=== PATIENT | female | born 1985 | race Caucasian/White ===

== ENCOUNTER 2019-11-05 12:35 | Inpatient (IN) | payer SELFPAY | END 2019-11-11 13:47 | disposition home or self-care (01) | DRG 897 | PROVIDERS: Emergency Provider Emergency Medicine; Family Provider Family Medicine | DX: F15.259 Other stimulant dependence with stimulant-induced psychotic disorder, unspecified (principal); Z28.21 Immunization not carried out because of patient refusal ==

== ENCOUNTER 2020-08-19 13:48 | Emergency (ER) | payer MEDICAID, SELFPAY ==
[2020-08-19 14:02] VITALS: BP 119/80; PULSE 115; RESP 18; TEMP 36.8; O2SAT 97; BMI 23.0
--- NOTE | 2020-08-19 14:16 | ED_ITS ---
HPI - URI/Sore Throat General: Chief Complaint: Upper Respiratory Infection Stated Complaint: Flu like symptoms Time Seen by Provider: 08/19/20 13:57 History of Present Illness: HPI Narrative: 34-year-old female patient presents to the emergency department with onset of cough and congestion x2 to 3 days. Recent methamphetamine use per patient. She reports not feeling well. She denies wheezing, she denies shortness of breath or chest pain. She denies exp osure to the COVID-19. 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 She denies homicidal suicidal ideation plans or thoughts, she denies visual or auditory hallucinations. She denies depression, she denies anxiety. MD elicited complaint: cough, rhinorrhea and nasal congestion Onset (ago): day(s) (2-3) Consistency: intermittent Description of mucous: watery Able to tolerate fluids by mouth: Yes Exacerbating factors: nothing Relieving factors: other (Has not attempted [id number] products to help with symptomology) Associated symptoms: Reports cough, nasal congestion and rhinorrhea; Deny abdominal pain, chills, chest pain, epistaxis, fever(s), headache(s), nausea, sinus pain or vomiting Treatments prior to arrival: none Review of Systems General: Reports: 10 or more systems reviewed and unremarkable except in HPI and below Const: Reports: body aches and malaise; Denies: fever(s), chills or diaphoresis Eyes: Denies: change in vision, blurry vision or eye redness ENMT: Reports: nasal discharge, nasal congestion and post nasal drip; Denies: odynophagia, epistaxis or sinus pain Card: Denies: chest pain, palpitations, irregular heart rhythm, lightheadedness or orthopnea Resp: Reports: productive cough (Clear); Denies: dyspnea, non-productive cough or wheezing GI: Denies: abdominal pain, nausea, vomiting or pain on defecation : Denies: difficulty voiding, dysuria or pelvic pain Musc: Denies: neck pain, back pain, muscle cramps or muscle weakness Skin/Breast: Denies: rash or pruritus Neuro: Denies: headache(s), weakness in extremities or behavioral changes Psych: Denies: anxiety, depression, mood swings, panic attacks, change in appetite, visual hallucinations, auditory hallucinations, suicidal ideation or homicidal ideation Grady/Lymph: Denies: easy bruising PFSH ED PFSH: Social History Current gender identity: Female Physical Exam Const: COMMON NORMALS: no acute distress, patient oriented x3, healthy appearing and alert GENERAL APPEARANCE: cooperative, comfortable and well hydrated HENMT: COMMON NORMALS: normocephalic, atraumatic, EAC's normal, TM's normal bilaterally, Normal external nose present and moist oral mucous membranes HEAD & SCALP: normocephalic and atraumatic FACE & SINUS: normal facial exam, sinuses nontender and face symmetric NOSE: Normal external nose present EXTERNAL AUDITORY CANAL: EAC's normal TYMPANIC MEMBRANE: TM's normal bilaterally MOUTH: Normal oral and palatal mucosa present THROAT: posterior oropharynx normal Eye: COMMON NORMALS: Equal, round and reactive pupils present and EOMs intact bilaterally GENERAL EYE: appearance normal, both eyes and all related structures PUPIL: Yes Equal, round and reactive pupils present Neck/C-Spine: COMMON NORMALS: full ROM and no lymphadenopathy GENERAL: Yes normal visual inspection and Yes trachea midline CERVICAL SPINE: Yes cervical ROM normal and Yes normal cervical lordosis Lymph: LYMPHATIC: no lymphadenopathy noted Chest: COMMONS NORMALS: normal inspection of the chest and normal palpation of entire chest wall Resp: COMMON NORMALS: normal respiratory effort, No use of accessory muscles and clear to auscultation bilaterally EFFORT & INSPECTION: Yes able to speak in complete sentences AUSCULTATION: clear to auscultation bilaterally Cardio: COMMON NORMALS: regular rhythm, S1 normal heart sound present, S2 normal heart sound present and Peripheral pulses 2+ throughout RHYTHM: regular rhythm HEART SOUNDS: S1 normal heart sound present and S2 normal heart sound present PERIPHERAL PULSES: Peripheral pulses 2+ throughout GI: COMMON NORMALS: Normal to inspection, nondistended, normoactive bowel sounds present, Soft to palpation and non-tender INSPECTION: Yes normal to inspection PALPATION: Yes Soft to palpation : COMMON NORMALS: Yes no CVA tenderness BLADDER/KIDNEY EXAM: Yes no CVA tenderness Back/Pelvis: COMMON NORMALS: no CVA tenderness and thoracic and lumbar spine normal to inspection Extremity: COMMON NORMALS: normal to inspection and capillary refill normal Neuro: COMMON NORMALS: patient oriented x3 and no focal motor deficits SENSORIUM/ORIENTATION: Yes alert Psych: COMMON NORMALS: mental status grossly normal, Normal thought process present, cooperative, speech normal, denies hallucinations, denies homicidal ideation and denies suicidal ideation ACTIVITY/MOTOR BEHAVIOR: Yes appropriate eye contact SPEECH: Yes normal speech THOUGHT PROCESS: Normal thought process present THOUGHT CONTENT: Yes Normal thought content present ATTENTION/CONCENTRATION: Yes attention grossly intact MEMORY/COGNITION: Yes memory grossly intact INSIGHT: Good insight present (Psych) JUDGEMENT: Good judgement present (Psych) OTHER: Appears under the influence of meth, constant movement of extremities Skin: COMMON NORMALS: no rashes or lesions noted and turgor normal GENERAL SKIN EXAM: no rashes or lesions noted and turgor normal Course ED course: 34-year-old female patient presented to the emergency department with complaints of cough congestion/flulike symptoms. Offered to swab for influenza and COVID, patient declined at time of swabbing. She came to emergency department with her bags, personal belongings at her side. She reported was homeless, had requested admission to stress unit, she denied suicidal/homicidal ideation thoughts or plans, she denied visual or auditory hallucinations. Dr Titus was consulted, case discussed, advised patient did not meet criteria for inpatient admission, advised patient to follow-up as an outpatient. This was discussed with patient[facility] case management was consulted and did assist with discharge planning with the patient. Patient was advised will need to follow-up with behavioral health outpatient services for initial screening. She verbalized understanding. Consultations: Consultation #1: Dr Titus -discussed with Dr. Titus patient's request to be admitted to the stress unit, advised patient does not admit to suicidal/homicidal ideations plans or thoughts, she is not exhibiting auditory or visual hallucination. He reports may follow-up as an outpatient. Refers patient to discharge planning. Discharge planning has been consulted to find patient a room as she has all her belongings with her and is currently homeless. A bed was found available at the [facility]. Discharge planning currently working to assist patient with placement. Time: 14:25 Vital Signs: Vital signs: Vital Signs Temperature 98.3 F 08/19/20 14:02 Pulse Rate 115 H 08/19/20 14:02 Respiratory Rate 18 08/19/20 14:02 Blood Pressure 119/80 08/19/20 14:02 Pulse Oximetry 97 08/19/20 14:02 Discharge Plan Discharge Patient Disposition: Home Clinical Impression: Upper respiratory infection, Substance abuse or dependence, Suspected 2019-nCoV infection Condition: Stable Prescriptions: No Action paroxetine HCl 20 mg tablet 20 mg PO DAILY RF: 0 Discharge Orders: Discharge Order (Routine); Ordered 08/19/20 Ordered By: Jackie Bray Referrals: Reuben Mccain DO [Primary Care Provider] - Discharge Diet: Advance as tolerated Discharge Activity: Resume usual activity Patient Instructions: Methamphetamine Abuse, Viral Syndrome - Adult Activity Restrictions/Additional Instructions: You will need to return to the emergency department if you develop worsening shortness of breath, cough or nausea vomiting, high fever, inability to catch your breath. It is highly recommended that you contact behavioral health for outpatient counseling/appointment. You will need to go to behavioral health and fill out paperwork for initial assessment. Hours of operation is Monday through Monday 8-4 30 Return to the emergency department if you develop homicidal/suicidal ideation plans or thoughts or auditory/visual hallucinations. The [facility] has accepted you to stay. Is advised that you quarantine in your room for 10 days. 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
--- NOTE | 2020-08-19 14:27 | DCPLANNER ---
manager generation was asked to check to see if there was a bed available [facility]. manager generation called the center, was told that the facility did have one female bed. manager generation informed ED physician that the jail did [facility] bed, and that patient would need to go to the [employer] Department to get a Want and Warrants check and if that came back clean then patient can go the jail for that bed. manager generation spoke with patient and informed patient that patient would need to go and get a Wants and Warrants check and then go to the [facility].
== END 2020-08-19 15:34 | disposition home or self-care (01) ==
PROVIDERS: Emergency Provider Nurse Practitioner Family; PCP Family Medicine
DX: J06.9 Acute upper respiratory infection, unspecified (principal); F19.20 Other psychoactive substance dependence, uncomplicated; Z59.0 Homelessness
CPT/HCPCS: 12345; 99281

== ENCOUNTER 2020-10-31 12:38 | Emergency (ER) | payer MEDICAID, SELFPAY ==
[2020-10-31 12:42] VITALS: BP 151/89; PULSE 110; RESP 16; TEMP 36.2; O2SAT 100; BMI 22.1
[2020-10-31 12:51] VITALS: BP 134/95; PULSE 95; RESP 18; O2SAT 98
--- NOTE | 2020-10-31 13:29 | PC.NURSE ---
Pt is continuously coming in and out of the room, despite being told multiple times to stay in her room. Security has advised pt to remain in her room. Pt refusing medications, blood draw and urine sample after previously agreeing to and requesting these things. Dr Albright notified and at bedside.
--- NOTE | 2020-10-31 13:33 | ED_ITS ---
HPI - Psych General: Chief Complaint: Psychiatric Symptoms Stated Complaint: DIZZY Time Seen by Provider: 10/31/20 12:52 Source: patient Mode of arrival: ambulatory Limitations: no limitations History of Present Illness: HPI Narrative: Patient presents to the emergency department with nonspecific concerns. She claims she feels she is about to have a seizure. She states she has a very remote history of seizures but is not on any antiseizure medications. She is unable to tell me what her symptoms are but states she just does not feel well. She admits to using methamphetamine 2 days ago and said she drank some alcoholic beverage yesterday following which her symptoms started. She denies any chest pain, nausea, dizziness. She denies any fever or urinary symptoms. She denies any headache. When she first arrived she was asking for gabapentin. She was hostile to the nurses but thankfully was cooperative with me. She denies suicidal or homicidal ideation. Review of Systems General: Reports: 10 or more systems reviewed and unremarkable except in HPI and below Const: Denies: fever(s), chills or body aches Eyes: Denies: change in vision or blurry vision ENMT: Denies: throat pain, enlarged tonsils, odynophagia, hoarseness, mouth pain or swelling of lips/tongue Card: Denies: palpitations, irregular heart rhythm, edema or swelling of feet/ankles Resp: Denies: dyspnea, productive cough or non-productive cough GI: Denies: abdominal pain, nausea or vomiting : Denies: flank pain, difficulty voiding, dysuria, urinary frequency, urinary urgency or urinary hesitancy Musc: Denies: neck pain, back pain or extremity swelling Skin/Breast: Denies: rash, pruritus or erythema Neuro: Denies: headache(s), numbness in extremities or weakness in extremities Endo: Denies: polyuria, polydipsia or tired all the time [facility] ED PFSH: Social History (Reviewed 10/31/20 @ 13:49 by Arlette Albright [place], [facility] [place] Current gender identity: Female Physical Exam Const: COMMON NORMALS: no acute distress, average body habitus, patient oriented x3, no limitations, healthy appearing, alert and well nourished HENMT: COMMON NORMALS: normocephalic, atraumatic and moist oral mucous membranes HEAD & SCALP: normocephalic and atraumatic Neck/C-Spine: COMMON NORMALS: no meningeal signs and no JVD Resp: COMMON NORMALS: normal respiratory effort, No retractions, No use of accessory muscles, clear to auscultation bilaterally and percussion normal AUSCULTATION: clear to auscultation bilaterally PERCUSSION: percussion normal Cardio: COMMON NORMALS: no JVD, regular rate, regular rhythm, S1 normal heart sound present, S2 normal heart sound present, No gallops present (Cardio), No clicks present (Cardio), No murmurs present (Cardio), No rub (Cardio) and Peripheral pulses 2+ throughout RATE: regular rate RHYTHM: regular rhythm HEART SOUNDS: S1 normal heart sound present and S2 normal heart sound present PERIPHERAL PULSES: Peripheral pulses 2+ throughout GI: COMMON NORMALS: Normal to inspection, nondistended, normoactive bowel sounds present, Soft to palpation, non-tender, No hepatosplenomegaly present, no masses and no bruits PALPATION: Yes Soft to palpation and Yes No hepatosplenomegaly present Extremity: COMMON NORMALS: normal to inspection, full ROM, capillary refill normal, no calf tenderness and no pedal edema Neuro: COMMON NORMALS: patient oriented x3 SENSORIUM/ORIENTATION: Yes alert MENINGEAL SIGNS: Yes no meningeal signs Skin: COMMON NORMALS: no rashes or lesions noted, no wounds, turgor normal, no jaundice, no petechiae and no mottling GENERAL SKIN EXAM: no rashes or lesions noted and turgor normal MDM - Psych MDM Narrative: Medical decision making narrative: Patient with nonspecific complaint but one that was uncooperative and did not know us assist with anything. Evaluation was unremarkable and she eloped after a conversation that I had with her. I was going to discharge her anyway as she had aspirin aspirin before she was discharged. Medical Records: Attestation: I reviewed the patient's medical records. Discharge Plan Discharge Patient Disposition: Home Clinical Impression: Worried well Condition: Stable Prescriptions: No Action No Known Home Medications RF: 0 Discharge Orders: Discharge ED (Routine); Ordered 10/31/20 Ordered By: Arlette Albright Referrals: Reuben Mccain DO [Primary Care Provider] - 1-3 days Discharge Diet: Usual diet Discharge Activity: Resume usual activity Activity Restrictions/Additional Instructions: Return for any new or worsening symptoms. Follow-up with your primary care provider as needed. 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
--- NOTE | 2020-10-31 13:48 | PC.NURSE ---
Dr Harden assessed pt , ordered Gabapentin, took med to pt. let her read the packet, opened med in front of pt. Then she refused to take the med. Anxious , pacing, kept coming out of the room. Encouraged to stay in room. Pt saw her blood pressure, states she needed an ASA. Dr Harden in room visiting with pt. ASA was ordered. Then pt left the ER. No meds were given and no blood drawn or UA. Notified Dr Harden and Charge nurse.
== END 2020-10-31 13:54 | disposition home or self-care (01) ==
PROVIDERS: Emergency Provider Family Medicine; PCP Family Medicine
DX: Z71.1 Person with feared health complaint in whom no diagnosis is made (principal)
CPT/HCPCS: 12345; 99284

== ENCOUNTER 2020-11-10 23:17 | Inpatient (IN) | payer MEDICAID, SELFPAY ==
[2020-11-10 23:27] VITALS: BP 133/92; PULSE 99; RESP 18; TEMP 36.7; O2SAT 97; BMI 23.0
--- NOTE | 2020-11-11 00:07 | ED_ITS ---
HPI - General Adult General: Chief complaint: General Medical Stated complaint: STRESSED Time Seen by Provider: 11/10/20 23:55 Source: patient and EMS Mode of arrival: EMS Limitations: no limitations History of Present Illness: HPI narrative: 35-year-old female states she been under a lot of stress lately and had increased anxiety. She denies any suicidal or homicidal ideations but states she does not know what to do and is having severe depression. She states she voluntarily wants to be admitted to the psych unit. Denies any worsening improving factors. She is not on any meds currently. Associated symptoms: Deny chest pain, dyspnea, headache(s), nausea, rash or vomiting Review of Systems Const: Denies: fever(s), chills, body aches or change in appetite Eyes: Denies: blurry vision or eye discomfort ENMT: Denies: throat pain or dental pain Card: Denies: chest pain Resp: Denies: dyspnea GI: Denies: abdominal pain, nausea, vomiting or diarrhea : Denies: dysuria Musc: Denies: neck pain or back pain Skin/Breast: Denies: rash Neuro: Denies: headache(s) Psych: Reports: anxiety Grady/Lymph: Denies: easy bruising All/Imm: Denies: urticaria PFSH ED PFSH: Social History Current gender identity: Female Female Reproductive History: Date of last menstrual period: 10/06/20 Physical Exam Const: COMMON NORMALS: no acute distress, patient oriented x3 and healthy appearing HENMT: COMMON NORMALS: normocephalic and atraumatic HEAD & SCALP: normocephalic and atraumatic Eye: COMMON NORMALS: Equal, round and reactive pupils present and EOMs intact bilaterally PUPIL: Yes Equal, round and reactive pupils present Neck/C-Spine: COMMON NORMALS: full ROM and supple Chest: COMMONS NORMALS: normal inspection of the chest and normal palpation of entire chest wall Resp: COMMON NORMALS: normal respiratory effort, No retractions, No use of accessory muscles and clear to auscultation bilaterally AUSCULTATION: clear to auscultation bilaterally Cardio: COMMON NORMALS: regular rate, regular rhythm and No murmurs present (Cardio) RATE: regular rate RHYTHM: regular rhythm GI: COMMON NORMALS: Normal to inspection, nondistended, normoactive bowel sounds present, Soft to palpation, non-tender and no masses PALPATION: Yes Soft to palpation Extremity: COMMON NORMALS: normal to inspection and full ROM Neuro: COMMON NORMALS: patient oriented x3, moves all extremities and no focal motor deficits Psych: COMMON NORMALS: mental status grossly normal, Normal thought process present and cooperative THOUGHT PROCESS: Normal thought process present Skin: COMMON NORMALS: no rashes or lesions noted and no wounds GENERAL SKIN EXAM: no rashes or lesions noted Course Vital Signs: Vital signs: Vital Signs Temperature 98.0 F 11/10/20 23:27 Pulse Rate 98 11/11/20 01:09 Respiratory Rate 18 11/10/20 23:27 Blood Pressure 128/90 11/11/20 01:09 Pulse Oximetry 98 11/11/20 01:09 MDM - General Adult MDM Narrative: Medical decision making narrative: Patient presents here with depression and voluntarily wants to be admitted to the psychiatric unit. Patient is medically cleared I spoke to psychiatrist and will admit to the MPU she has been stable while here. Lab Data: Labs: Lab Results 11/11/20 11/11/20 11/11/20 Range/Units 00:40 01:00 01:00 WBC 11.9 H (4.0-10.0) 10^3/ uL RBC 4.61 (4.1-5.3) 10^6/u L Hgb 13.7 (11.5-15.3) g/dL Hct 41.3 (37.0-47.0) % MCV 89.6 (81-99) fL MCH 29.7 (28.0-34.0) pg MCHC 33.2 (30.0-36.0) g/dL RDW 12.7 (12.1-15.1) % Plt Count 422 H (130-400) 10^3/c mm MPV 9.8 (7.4-10.4) fL Neut % (Auto) 59.9 % Lymph % (Auto) 26.5 % Schuyler % (Auto) 8.3 % Eos % (Auto) 4.5 % Baso % (Auto) 0.6 % Neut # (Auto) 7.13 (1.8-7.7) 10^3/u L Lymph # (Auto) 3.1 (0.8-4.8) 10^3/u L Schuyler # (Auto) 1.0 H (0.2-0.9) 10^3/u L Eos # (Auto) 0.5 (0.0-0.8) 10^3/u L Baso # (Auto) 0.1 (0.0-0.1) 10^3/u L Nucleated RBC % (a uto) 0 % Nucleated RBCs # 0.0 /100WBC Sodium 140 (136-145) mmol/L Potassium 3.8 (3.5-5.1) mmol/L Chloride 105 (98-107) mmol/L Carbon Dioxide 25 (22-29) mmol/L Anion Gap 13.8 (5-19) BUN 13 (6-20) mg/dL Creatinine 0.7 (0.5-0.9) mg/dL GFR Calculation 95.8 (90-130) mL/min Glucose 121 H (65-115) mg/dL Calculated Osmolal ity 291 (285-295) mOsm/k g Calcium 9.8 (8.5-10.5) mg/dL Total Bilirubin 0.5 (0.15-1.2) mg/dL AST 21 (0-32) U/L ALT 26 (0-33) U/L Alkaline Phosphata se 68 (35-105) IU/L Total Protein 7.3 (6.6-8.7) g/dL Albumin 4.2 (3.5-5.2) g/dL Globulin 3.1 (1.3-4.6) g/dL HCG, Qual Negative (Negative) Salicylates 0.7 L (3-10) mg/dL Acetaminophen < 5.0 L (10-30) ug/mL Ethyl Alcohol < 10 (0-10) mg/dL Discharge Plan Discharge Patient Disposition: Admitted As Inpatient Clinical Impression: Depression Condition: Stable 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
[2020-11-11 00:52] LABS: HCG Qualitative Urine. Negative (Negative)
[2020-11-11 01:09] VITALS: BP 128/90; PULSE 98; O2SAT 98
[2020-11-11 01:19] LABS: Basophils # 0.1 10^3/uL (0.0-0.1); Basophils % 0.6 %; Eosinophils # 0.5 10^3/uL (0.0-0.8); Eosinophils % 4.5 %; Hematocrit 41.3 % (37.0-47.0); Hemoglobin 13.7 g/dL (11.5-15.3); Lymphocytes # 3.1 10^3/uL (0.8-4.8); Lymphocytes % 26.5 %; Mean Corpuscular HGB Conc 33.2 g/dL (30.0-36.0); Mean Corpuscular Hemoglobin 29.7 pg (28.0-34.0); Mean Corpuscular Volume 89.6 fL (81-99); Mean Platelet Volume 9.8 fL (7.4-10.4); Monocytes % 8.3 %; Neutrophils # 7.13 10^3/uL (1.8-7.7); Neutrophils % 59.9 %; Nucleated Red Blood Cells % 0 %; Platelet Count 422 10^3/cmm (130-400); Red Blood Count 4.61 10^6/uL (4.1-5.3); Red Cell Distribution Width 12.7 % (12.1-15.1); White Blood Count 11.9 10^3/uL (4.0-10.0)
[2020-11-11 01:33] LABS: Alanine Aminotransferase 26 U/L (0-33); Albumin Level 4.2 g/dL (3.5-5.2); Alkaline Phosphatase 68 IU/L (35-105); Anion Gap 13.8 (5-19); Aspartate Amino Transferase 21 U/L (0-32); Blood Urea Nitrogen 13 mg/dL (6-20); Calcium 9.8 mg/dL (8.5-10.5); Carbon Dioxide 25 mmol/L (22-29); Chloride 105 mmol/L (98-107); Globulin 3.1 g/dL (1.3-4.6); Glomerular Filtration Rate 95.8 mL/min (90-130); Glucose 121 mg/dL (65-115); Osmolality Calculated 291 mOsm/kg (285-295); Potassium 3.8 mmol/L (3.5-5.1); Salicylate 0.7 mg/dL (3-10); Sodium 140 mmol/L (136-145); Total Bilirubin 0.5 mg/dL (0.15-1.2); Total Protein 7.3 g/dL (6.6-8.7)
[2020-11-11 01:36] LABS: Acetaminophen < 5.0 ug/mL (10-30); Alcohol Level < 10 mg/dL (0-10)
[2020-11-11 01:48] LABS: Amphetamines Screen Urine Positive (Negative); Barbiturates Screen Urine Negative (Negative); Benzodiazepines Screen Urine Negative (Negative); Cocaine Screen Urine Negative (Negative); Opiate Screen Urine Negative (Negative); PCP Screen Urine Negative (Negative); Specific Gravity, Urine 1.005 (1.005-1.030); THC Screen Urine Negative (Negative); Urine Color Yellow (Yellow); pH Urine 6.5 (5-7)
[2020-11-11 01:49] LABS: Add Urine Culture? Yes; Add Urine Microscopic? YES; Bacteria Urine 2+ /hpf; Bilirubin Urine Neg (Negative); Blood Urine Neg (Negative); Glucose Urine UA Norm (Normal); Ketones Urine Negative (Negative); Leukocyte Esterase Urine 2+ (Negative); Mucus Urine 1+ /hpf; Nitrate Urine Negative (Negative); Protein Urine Neg (Negative); Squamous Epithelial Cell Urine 0-4 /hpf (0-5); Urobilinogen Urine Norm (Negative); WBC Urine 15-25 /hpf (0-5)
[2020-11-11 02:17] VITALS: PULSE 111; RESP 18; O2SAT 99
[2020-11-11 02:26] VITALS: PULSE 81; RESP 20; TEMP 36.8
[2020-11-11] MEDS: acetaminophen 325 mg Tablet 650 MG PO ×3 (03:45→12:46)
[2020-11-11] MEDS: blistex lip oint 7 gm Tube 1 APPLIC TOPICAL ×3 (03:46→12:14)
--- NOTE | 2020-11-11 05:09 | PC.NURSE ---
Skin assessment revealed no wounds or injuries.
[2020-11-11 05:55] VITALS: RESP 16
[2020-11-11] MEDS: nicotine 2 mg Gum BUCCAL ×2 (09:16→12:49)
[2020-11-11] MEDS: benzocaine 20% 7 gm 1 APPLIC MUCOUS MEM (10:35)
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
[2020-11-11 14:00] VITALS: BP 119/70; PULSE 76; RESP 18; TEMP 36.1; O2SAT 99
[2020-11-11] MEDS: ARIPiprazole 10 mg Tablet PO (15:21)
[2020-11-11 22:00] VITALS: BP 127/90; PULSE 64; RESP 18; TEMP 37; O2SAT 99
--- NOTE | 2020-11-12 01:22 | PC.NURSE ---
PM assessment On assessment, pt heart/lung sounds are normal, pt denies AH, VH, SI, HI at this time. Pt denies pain. She is resting in her bed and has slept most of the shift. She did get up for a snack and returned to her room. She says, life happened, this is why Im here. I am coming down. Will continue to monitor this pt.
--- NOTE | 2020-11-12 01:44 | PC.NURSE ---
PT request Pt has dried lips, cracked, and white. She has requested Zovarax to treat them. She was offered blistex and she has used it but the lips are still in the same condition. will continue to monitor this patient.
[2020-11-12 05:54] VITALS: BP 108/73; PULSE 82; RESP 16; TEMP 37.1; O2SAT 94
[2020-11-12] MEDS: ARIPiprazole 10 mg Tablet PO (09:35)
--- NOTE | 2020-11-12 12:08 | PM.NPN ---
Subjective NPU Subjective: Interval history: Bernice presents today appearing less confused than the day before and resting/sleeping a lot. She denies any major changes from yesterday and reports that she is feeling a little better now that she has been able to catch up on rest. She denies any side effects from the medication and she is eating okay and sleeping frequently. Mental Status Exam MSE Comments: This is a very slender white female with hospital scrubs on with limited grooming and eye contact. No abnormal movements except psychomotor retardation. Cooperative with exam in no acute distress. Speech was decreased rate and volume. Mood described as okay, affect subdued. Thought process linear and at times organized. Thought content: Patient denied suicidal or homicidal ideation, there were no delusions reported or noted, she denied auditory visual hallucinations. Attention and concentration were limited and memory was unreliable but none were formally tested. She is alert and oriented x3. Insight and judgment are impaired and impulse control is impaired. Vitals/I&O/Wt Last Vital Signs Temp 99.5 F 11/12/20 20:10 Pulse 81 11/12/20 20:10 Resp 17 11/12/20 20:10 BP 104/71 11/12/20 20:10 Pulse Ox 97 11/12/20 20:10 Data NPU : 11/11/20 01:00 11/11/20 01:00 Micro: Microbiology 11/11/20 00:40 Urine Culture - Preliminary Urine,Clean Catch Microbiology 11/11/20 00:40 Urine,Clean Catch Urine Culture - Preliminary A&P Additional A&P Information (1) Depression: (2) Methamphetamine use: (3) Methamphetamine intoxication: (4) Psychosis: This is a 35-year-old white female with a long history of mental health and addiction issues who presents 1 year after her last inpatient hospitalization with active addiction and psychosis likely related to her methamphetamine use with improvement today in her altered mental status and decision-making capacity. 1. Continue current medication. 2. Continue every 15 minute checks for safety. 3. Encourage individual, group and milieu therapy. 4. Encourage sober living treatment after discharge at the highest level of care to which she is willing to commit. Involuntary Hold Information 96 Hour Hold: 96 Hour Involuntary Admission: No Attestations NPU Medical Necessity Statement*: Inpatient hospitalization is medically necessary and the clinically appropriate intervention at this time. We will monitor medications and make changes as indicated. Likely length of stay 2 to 4 days. Coding Level of Care Code Acute Property Disposal Officer for [facility]ar Hicks
[2020-11-12 13:29] VITALS: BP 107/74; PULSE 95; RESP 18; TEMP 36.8; O2SAT 96
[2020-11-12 20:10] VITALS: BP 104/71; PULSE 81; RESP 17; TEMP 37.5; O2SAT 97
[2020-11-13 06:00] VITALS: PULSE 108; RESP 16; TEMP 36.9; O2SAT 90
[2020-11-13] MEDS: ARIPiprazole 10 mg Tablet PO (08:42)
[2020-11-13 13:43] VITALS: BP 110/71; PULSE 84; RESP 18; TEMP 36.3; O2SAT 97
--- NOTE | 2020-11-13 16:44 | P.PN_ITS ---
Subjective NPU Subjective: Interval history: Bernice presents today continuing to show increasing clarity and resolution of her altered mental status. She continues to be somewhat lethargic as she gets through her methamphetamine withdrawal. She endorses overall improvement reports that she is eating fine and sleeping probably too much. Mental Status Exam MSE Comments: This is a very slender white female with hospital scrubs on with limited grooming and eye contact. No abnormal movements except psychomotor retardation. Cooperative with exam in no acute distress. Speech was more normal rate and volume. Mood described as better, affect less subdued. Thought process more organized. Thought content: Patient denied suicidal or homicidal ideation, there were no delusions reported or noted, she denied auditory visual hallucinations. Attention and concentration were limited and memory was unreliable but none were formally tested. She is alert and oriented x3. Insight and judgment are impaired, but improving and impulse control is impaired. Vitals/I&O/Wt Last Vital Signs Temp 98.6 F 11/13/20 20:51 Pulse 84 11/13/20 20:51 Resp 18 11/13/20 20:51 BP 108/76 11/13/20 20:51 Pulse Ox 95 11/13/20 20:51 Data NPU : 11/11/20 01:00 11/11/20 01:00 Micro: Microbiology 11/11/20 00:40 Urine Culture - Final Urine,Clean Catch Microbiology 11/11/20 00:40 Urine,Clean Catch Urine Culture - Final A&P Additional A&P Information (1) Depression: (2) Methamphetamine use: (3) Methamphetamine intoxication: (4) Psychosis: This is a 35-year-old white female with a long history of mental health and addiction issues who presents 1 year after her last inpatient hospitalization with active addiction and psychosis likely related to her methamphetamine use with improvement in her altered mental status and decision-making capacity. 1. Continue current medication. 2. Continue every 15 minute checks for safety. 3. Encourage individual, group and milieu therapy. 4. Encourage sober living treatment after discharge at the highest level of care to which she is willing to commit. Involuntary Hold Information 96 Hour Hold: 96 Hour Involuntary Admission: No Attestations NPU Medical Necessity Statement*: Inpatient hospitalization is medically necessary and the clinically appropriate intervention at this time. We will monitor medications and make changes as indicated. Likely length of stay 2 to 4 days. Coding Level of Care Code Acute Manager Domestic for Chg Fwd
[2020-11-13 20:51] VITALS: BP 108/76; PULSE 84; RESP 18; TEMP 37; O2SAT 95
[2020-11-14 06:00] VITALS: BP 102/66; PULSE 71; RESP 18; TEMP 36.8; O2SAT 94
[2020-11-14] MEDS: ARIPiprazole 10 mg Tablet PO (09:01)
[2020-11-14 14:00] VITALS: BP 123/85; PULSE 101; RESP 20; TEMP 37; O2SAT 95
[2020-11-14] MEDS: nicotine 2 mg Gum BUCCAL (14:43)
--- NOTE | 2020-11-14 15:41 | PM.NPN ---
Subjective NPU Subjective: Interval history: Bernice continues to show slow but steady improvement in her mentation. She continues to endorse diminishing odd thoughts and clear thought processes. She reports she is tolerating the medication well and denies any side effects. She reports she continues to catch up on sleep as she manages her withdrawal symptoms. She reports she is eating fine and sleeping a lot. Mental Status Exam MSE Comments: This is a very slender white female with hospital scrubs on with improving grooming and eye contact. No abnormal movements except psychomotor retardation. Cooperative with exam in no acute distress. Speech was more normal rate and volume. Mood described as better, affect less subdued. Thought process organized. Thought content: Patient denied suicidal or homicidal ideation, there were no delusions reported or noted, she denied auditory visual hallucinations. Attention and concentration were improving and memory was more reliable but none were formally tested. She is alert and oriented x3. Insight and judgment are improving and impulse control is impaired. Vitals/I&O/Wt Last Vital Signs Temp 98.6 F 11/14/20 14:00 Pulse 101 H 11/14/20 14:00 Resp 20 H 11/14/20 14:00 BP 123/85 11/14/20 14:00 Pulse Ox 95 11/14/20 14:00 Weight last 48 hrs Weight 58.967 kg Data NPU : 11/11/20 01:00 11/11/20 01:00 A&P Additional A&P Information (1) Depression: (2) Methamphetamine use: (3) Methamphetamine intoxication: (4) Psychosis: This is a 35-year-old white female with a long history of mental health and addiction issues who presents 1 year after her last inpatient hospitalization with active addiction and psychosis likely related to her methamphetamine use with improvement in her altered mental status and decision-making capacity. 1. Continue current medication. 2. Continue every 15 minute checks for safety. 3. Encourage individual, group and milieu therapy. 4. Encourage sober living treatment after discharge at the highest level of care to which she is willing to commit. Involuntary Hold Information 96 Hour Hold: 96 Hour Involuntary Admission: No Attestations NPU Medical Necessity Statement*: Inpatient hospitalization is medically necessary and the clinically appropriate intervention at this time. We will monitor medications and make changes as indicated. Likely length of stay 2 to 4 days. 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
[2020-11-14 20:06] VITALS: BP 98/65; PULSE 89; RESP 18; TEMP 37.3; O2SAT 97
[2020-11-15 05:58] VITALS: BMI 23.0
[2020-11-15 06:00] VITALS: BP 104/69; PULSE 89; RESP 20; TEMP 36.9; O2SAT 95
[2020-11-15] MEDS: ARIPiprazole 10 mg Tablet PO (08:31)
--- NOTE | 2020-11-15 09:41 | PM.NPN ---
Subjective NPU Subjective: Interval history: Bernice presents today continuing to show slow improvement and open to discussions about ongoing treatment. She reports that she continues to feel a little groggy and does not know of that secondary to the Abilify. Discussed possibly L5 to evening to see if that assists with her low energy. Otherwise we discussed meeting with the treatment team in the morning and seeing what options are available in the community for her ongoing treatment. Mental Status Exam MSE Comments: This is a very slender white female with hospital scrubs on with improving grooming and eye contact. No abnormal movements except psychomotor retardation. Cooperative with exam in no acute distress. Speech was more normal rate and volume. Mood described as groggy, affect subdued. Thought process organized. Thought content: Patient denied suicidal or homicidal ideation, there were no delusions reported or noted, she denied auditory visual hallucinations. Attention and concentration were improving and memory was more reliable but none were formally tested. She is alert and oriented x3. Insight and judgment are improving and impulse control is impaired. Vitals/I&O/Wt Last Vital Signs Temp 98.4 F 11/15/20 06:00 Pulse 89 11/15/20 06:00 Resp 20 H 11/15/20 06:00 BP 104/69 11/15/20 06:00 Pulse Ox 95 11/15/20 06:00 Weight last 48 hrs Weight 58.967 kg Data NPU : 11/11/20 01:00 11/11/20 01:00 A&P Additional A&P Information (1) Depression: (2) Methamphetamine use: (3) Methamphetamine intoxication: (4) Psychosis: This is a 35-year-old white female with a long history of mental health and addiction issues who presents 1 year after her last inpatient hospitalization with active addiction and psychosis likely related to her methamphetamine use with improvement in her altered mental status and decision-making capacity. 1. Continue current medication. Move Abilify to nightly and see if she continues to have daytime somnolence. 2. Continue every 15 minute checks for safety. 3. Encourage individual, group and milieu therapy. 4. Encourage sober living treatment after discharge at the highest level of care to which she is willing to commit. Involuntary Hold Information 96 Hour Hold: 96 Hour Involuntary Admission: No Attestations NPU Medical Necessity Statement*: Inpatient hospitalization is medically necessary and the clinically appropriate intervention at this time. We will monitor medications and make changes as indicated. Likely length of stay 1-3 days. 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
[2020-11-15 14:00] VITALS: BP 138/89; PULSE 94; RESP 18; TEMP 36.8
--- NOTE | 2020-11-15 20:11 | PC.NURSE ---
RESTING IN BED, DENIES WANTING TO HARM SELF
[2020-11-15] MEDS: nicotine 2 mg Gum BUCCAL (20:48)
[2020-11-15] MEDS: trazodone 50 mg Tablet PO (20:48)
[2020-11-15] MEDS: hyDROXYzine 25 mg Capsule 50 MG PO (20:48)
[2020-11-15 21:27] VITALS: PULSE 79; RESP 17; TEMP 36.8; O2SAT 96
[2020-11-16 06:00] VITALS: BP 80/52; PULSE 73; RESP 19; TEMP 37; O2SAT 95
[2020-11-16] MEDS: ARIPiprazole 10 mg Tablet PO (08:18)
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
[2020-11-16] MEDS: nicotine 2 mg Gum BUCCAL (13:09)
== END 2020-11-16 13:51 | disposition home or self-care (01) | DRG 885 ==
LOC: ER 11-11 01:46 → NP 11-11 09:24
PROVIDERS: Admitting Provider Psychiatry & Neurology Psychiatry; Emergency Provider Emergency Medicine; PCP Family Medicine; Visit Provider Psychiatry & Neurology Psychiatry
DX: F29 Unspecified psychosis not due to a substance or known physiological condition (principal); F32.9 Major depressive disorder, single episode, unspecified; F17.210 Nicotine dependence, cigarettes, uncomplicated; F15.129 Other stimulant abuse with intoxication, unspecified; F41.1 Generalized anxiety disorder; Z81.8 Family history of other mental and behavioral disorders
CPT/HCPCS: 12345; 80053; 80306; 80307; 81001; 81025; 85025; 87086; 99282; 99291

== ENCOUNTER 2020-11-23 13:46 | Inpatient (IN) | payer BC, MEDICAID, SELFPAY ==
[2020-11-23] VITALS (8 sets, daily range): BP systolic 78–131; BP diastolic 51–94; PULSE 87–123; RESP 14–18; TEMP 37.1; O2SAT 94–98; BMI 22.1
[2020-11-23] MEDS: LORazepam 2 mg/mL INJ 1 mL IM (14:03)
[2020-11-23] MEDS: ziprasidone 20 mg/mL SDV IM (14:05)
[2020-11-23 14:42] LABS: Add Urine Microscopic? YES; Bilirubin Urine Neg (Negative); Blood Urine Trace (Negative); Glucose Urine UA Norm (Normal); HCG Qualitative Urine. Negative (Negative); Ketones Urine Negative (Negative); Leukocyte Esterase Urine Negative (Negative); Nitrate Urine Negative (Negative); Protein Urine Trace (Negative); Urine Appearance Clear (CLEAR); Urine Color Yellow (Yellow); Urobilinogen Urine Norm (Negative); pH Urine 5 (5-7)
[2020-11-23 14:44] LABS: Basophils # 0.1 10^3/uL (0.0-0.1); Basophils % 0.7 %; Eosinophils # 0.2 10^3/uL (0.0-0.8); Eosinophils % 1.7 %; Hematocrit 42.2 % (37.0-47.0); Hemoglobin 14.2 g/dL (11.5-15.3); Lymphocytes % 15.5 %; Mean Corpuscular HGB Conc 33.6 g/dL (30.0-36.0); Mean Corpuscular Hemoglobin 30.1 pg (28.0-34.0); Mean Corpuscular Volume 89.6 fL (81-99); Mean Platelet Volume 9.4 fL (7.4-10.4); Monocytes # 0.6 10^3/uL (0.2-0.9); Monocytes % 4.8 %; Neutrophils # 9.82 10^3/uL (1.8-7.7); Nucleated Red Blood Cells % 0 %; Platelet Count 490 10^3/cmm (130-400); Red Blood Count 4.71 10^6/uL (4.1-5.3); Red Cell Distribution Width 12.4 % (12.1-15.1); White Blood Count 12.8 10^3/uL (4.0-10.0)
[2020-11-23 14:47] LABS: Add Urine Culture? No; Bacteria Urine 1+ /hpf; Hyaline Casts Urine 0-4 /lpf; Mucus Urine 3+ /hpf; Squamous Epithelial Cell Urine 0-4 /hpf (0-5)
[2020-11-23 14:49] LABS: Amphetamines Screen Urine Positive (Negative); Barbiturates Screen Urine Negative (Negative); Benzodiazepines Screen Urine Negative (Negative); Cocaine Screen Urine Negative (Negative); PCP Screen Urine Negative (Negative); THC Screen Urine Negative (Negative)
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
[2020-11-23 15:01] LABS: Opiate Screen Urine Negative (Negative)
[2020-11-23 15:11] LABS: Alanine Aminotransferase 11 U/L (0-33); Albumin Level 3.9 g/dL (3.5-5.2); Alkaline Phosphatase 64 IU/L (35-105); Anion Gap 14.2 (5-19); Aspartate Amino Transferase 14 U/L (0-32); Blood Urea Nitrogen 7 mg/dL (6-20); Carbon Dioxide 22 mmol/L (22-29); Chloride 104 mmol/L (98-107); Globulin 3.2 g/dL (1.3-4.6); Glomerular Filtration Rate 71.7 mL/min (90-130); Glucose 144 mg/dL (65-115); Osmolality Calculated 285 mOsm/kg (285-295); Potassium 3.2 mmol/L (3.5-5.1); Salicylate 0.9 mg/dL (3-10); Sodium 137 mmol/L (136-145); Total Bilirubin 0.4 mg/dL (0.15-1.2); Total Protein 7.1 g/dL (6.6-8.7)
[2020-11-23 15:17] LABS: Acetaminophen < 5.0 ug/mL (10-30); Alcohol Level < 10 mg/dL (0-10)
[2020-11-23] MEDS: hyDROXYzine 25 mg Capsule 50 MG PO (20:23)
[2020-11-23] MEDS: trazodone 50 mg Tablet PO (20:23)
--- NOTE | 2020-11-23 23:12 | PC.NURSE ---
PM assessment Pt blood pressure is soft while resting at 75/51. Pt got up for snack but returned to bed. Heart/Lung sounds are normal at this time. Pt requested to be left alone.
[2020-11-24 06:00] VITALS: BP 96/44; PULSE 65; RESP 18; TEMP 36.7; O2SAT 96
[2020-11-24 13:42] VITALS: BP 95/60; PULSE 73; RESP 18; TEMP 37.3; O2SAT 97
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
[2020-11-24] MEDS: trazodone 50 mg Tablet PO (19:33)
[2020-11-24] MEDS: hyDROXYzine 25 mg Capsule 50 MG PO (19:33)
[2020-11-24 19:38] VITALS: BP 101/66; PULSE 82; RESP 17; TEMP 36.8; O2SAT 96
[2020-11-25 06:00] VITALS: BP 85/52; PULSE 72; RESP 16; TEMP 36.7; O2SAT 96
[2020-11-25 14:00] VITALS: BP 105/67; PULSE 86; RESP 20; TEMP 36.8; O2SAT 97
--- NOTE | 2020-11-25 14:11 | PM.NPN ---
Subjective NPU Subjective: Interval history: Bernice presented today reporting that she is feeling a little better day by day. She really could not give any indication of why she was struggling since she left [facility] indicated she may have possibly not picked up her Abilify when she left. We discussed the importance of her continuing the medication after discharge to get a different outcome. She continues to deny an interest in more intensive outpatient sober living treatment we discussed the possibility of discharge next 48 hours. Mental Status Exam MSE Comments: This is a very slender white female with hospital scrubs on with limited grooming and adequate eye contact. No abnormal movements except psychomotor retardation. Cooperative with exam in no acute distress. Speech was decreased volume and rate. Mood described as a little better, affect congruent. Thought process linear and at times organized. Thought content: Patient endorsed improvement in her suicidal and continue to deny homicidal ideation, there were no delusions reported or noted, she denied auditory visual hallucinations. Attention and concentration were impaired and memory was unreliable but none were formally tested. She is alert and oriented x3. Insight and judgment are impaired and impulse control is impaired. Vitals/I&O/Wt Last Vital Signs Temp 98.1 F 11/25/20 19:43 Pulse 75 11/25/20 19:43 Resp 16 11/25/20 19:43 BP 78/52 11/25/20 19:43 Pulse Ox 96 11/25/20 19:43 11/25/20 11/25/20 11/25/20 06:59 14:59 22:59 Intake Total 480 / 480 240 / 720 Balance 480 / 480 240 / 720 Weight last 48 hrs Weight 56.699 kg Data NPU : 11/23/20 14:38 11/23/20 14:38 A&P Additional A&P Information (1) Drug-induced psychotic disorder: (2) Psychosis: (3) Methamphetamine use: (4) Depression: This is a 35-year-old white female with a long history of mental health and addiction issues who presents days after her last inpatient hospitalization with active addiction and psychosis related to her methamphetamine use with improvement in her altered mental status and decision-making capacity since her last inpatient stay. 1. Continue current medication. 2. Continue every 15 minute checks for safety. 3. Encourage individual, group and milieu therapy. 4. Encourage sober living treatment after discharge at the highest level of care to which she is willing to commit. Involuntary Hold Information 96 Hour Hold: 96 Hour Involuntary Admission: Yes 96 Hour Hold Ending Date: 11/27/20 96 Hour Hold Ending Time: 14:00 Attestations NPU Medical Necessity Statement*: Inpatient hospitalization is medically necessary and the clinically appropriate intervention at this time. We will monitor medications and make changes as indicated. Likely length of stay 2-4 days. Coding Level of Care Code Acute Wrecker Operator for Bandar Hicks
[2020-11-25 19:43] VITALS: BP 78/52; PULSE 75; RESP 16; TEMP 36.7; O2SAT 96
[2020-11-25] MEDS: hyDROXYzine 25 mg Capsule 50 MG PO (20:49)
[2020-11-25] MEDS: trazodone 50 mg Tablet PO (20:49)
[2020-11-25 21:33] VITALS: BP 97/62
--- NOTE | 2020-11-26 00:56 | PC.NURSE ---
PM assessment Heart/Lung Sounds are normal. pt bp is a little soft while sleeping 78/52 and when up it is 97/62. Pt denies pain, Denies si/hi, denies ah/vh. pt has slept since 190 only getting up for snack and to the bathroom. Will continue to monitor pt
[2020-11-26 05:58] VITALS: BP 94/63; PULSE 80; RESP 18; TEMP 36.9; O2SAT 97
[2020-11-26 14:00] VITALS: BP 111/70; PULSE 92; RESP 20; TEMP 36.8; O2SAT 97
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
[2020-11-26 15:12] VITALS: BP 111/70; PULSE 92; RESP 20; TEMP 36.8; O2SAT 97
== END 2020-11-26 15:27 | disposition home or self-care (01) | DRG 897 ==
LOC: ER 15:48 → NP 17:12
PROVIDERS: Admitting Provider Psychiatry & Neurology Psychiatry; Emergency Provider Family Medicine; PCP Family Medicine; Visit Provider Psychiatry & Neurology Psychiatry
DX: F15.950 Other stimulant use, unspecified with stimulant-induced psychotic disorder with delusions (principal); F32.9 Major depressive disorder, single episode, unspecified; Z81.8 Family history of other mental and behavioral disorders
CPT/HCPCS: 12345; 80053; 80306; 80307; 81001; 81025; 85025; 96372; 99284; J2060; J3486

== ENCOUNTER 2021-02-05 10:57 | Inpatient (IN) | payer BC, SELFPAY ==
[2021-02-05] VITALS (15 sets, daily range): BP systolic 91–166; BP diastolic 65–103; PULSE 78–128; RESP 16–24; TEMP 36.8; O2SAT 96–100; BMI 23.9
--- NOTE | 2021-02-05 11:30 | W.ED.PSYCH ---
HPI - Psych General: Chief Complaint: Psychiatric Symptoms Stated Complaint: MHE Time Seen by Provider: 02/05/21 11:07 Source: police Mode of arrival: other (police) Limitations: altered mental status History of Present Illness: HPI Narrative: This 35-year-old female patient with a history of methamphetamine use was brought to the emergency department by police officers. She was apparently at the court house where her mother was trying to get a 96-hour psychiatric hold of this patient and while she was there the patient's started exhibiting unusual behavior according to the police officers. She was loud, not cooperating, saying people were trying to kill her, saying everybody in the court house was trying to kill her. The electrical engineering designer therefore ordered them to bring her to the emergency department for psychiatric evaluation and the electrical engineering designer is working on a 96-hour court-ordered hold. Review of Systems General: Reports: ROS unobtainable due to mental status [facility] ED PFSH: Social History (Reviewed 02/05/21 @ 11:39 by Arlette Albright [place] [facility] [place] Current gender identity: Female Female Reproductive History: Date of last menstrual period: 10/06/20 Physical Exam Const: COMMON NORMALS: no acute distress, average body habitus, healthy appearing, alert and well nourished EXAM LIMITATIONS: behavioral limitations HENMT: COMMON NORMALS: normocephalic and atraumatic HEAD & SCALP: normocephalic and atraumatic MOUTH: moist mucous membranes abnormal (dry) Eye: COMMON NORMALS: Equal, round and reactive pupils present, EOMs intact bilaterally, conjunctivae normal and no scleral icterus CONJUNCTIVA: Yes conjunctivae normal PUPIL: Yes Equal, round and reactive pupils present Neck/C-Spine: COMMON NORMALS: no meningeal signs and no JVD Resp: COMMON NORMALS: normal respiratory effort, No retractions, No use of accessory muscles, clear to auscultation bilaterally and percussion normal AUSCULTATION: clear to auscultation bilaterally PERCUSSION: percussion normal Cardio: COMMON NORMALS: no JVD, regular rhythm, S1 normal heart sound present, S2 normal heart sound present, No gallops present (Cardio), No clicks present (Cardio), No murmurs present (Cardio), No rub (Cardio) and Peripheral pulses 2+ throughout RATE: tachycardic RHYTHM: regular rhythm HEART SOUNDS: S1 normal heart sound present and S2 normal heart sound present PERIPHERAL PULSES: Peripheral pulses 2+ throughout GI: COMMON NORMALS: Normal to inspection, nondistended, normoactive bowel sounds present, Soft to palpation, non-tender, No hepatosplenomegaly present, no masses and no bruits PALPATION: Yes Soft to palpation and Yes No hepatosplenomegaly present Extremity: COMMON NORMALS: normal to inspection, full ROM, capillary refill normal, no calf tenderness and no pedal edema Neuro: SENSORIUM/ORIENTATION: Yes alert MENINGEAL SIGNS: Yes no meningeal signs Psych: ATTITUDE: Yes paranoid and Yes uncooperative ACTIVITY/MOTOR BEHAVIOR: Yes psychomotor agitation, Yes hyperactivity and Yes disorganized behavior SPEECH: Yes incoherent Skin: COMMON NORMALS: no rashes or lesions noted, no wounds, turgor normal, no jaundice, no petechiae and no mottling GENERAL SKIN EXAM: no rashes or lesions noted and turgor normal MDM - Psych MDM Narrative: Medical decision making narrative: 35-year-old female patient was brought into the emergency department in acute psychosis. Most likely the psychosis is drug-induced. She tested positive for methamphetamine. She has a history of methamphetamine abuse. She had a court ordered 9 6 hold that was done prior to her arrival and she is being admitted to the neuropsychiatric unit for further evaluation and management. In the emergency department she required multiple doses of medications including ketamine, Geodon, lorazepam to get her chemically restrained. She also required physical restraints which were eventually taken out when the chemical restraints kicked in. She was medically cleared and admitted to the [facility]. Medical Records: Attestation: I reviewed the patient's medical records. Lab Data: Attestation: I reviewed the patient's lab results. Labs: Lab Results 02/05/21 02/05/21 02/05/21 Range/Units 11:32 11:32 11:35 WBC 13.0 H (4.0-10.0) 10^3/ uL RBC 4.88 (4.1-5.3) 10^6/u L Hgb 14.4 (11.5-15.3) g/dL Hct 42.6 (37.0-47.0) % MCV 87.3 (81-99) fL MCH 29.5 (28.0-34.0) pg MCHC 33.8 (30.0-36.0) g/dL RDW 12.2 (12.1-15.1) % Plt Count 420 H (130-400) 10^3/c mm MPV 10.2 (7.4-10.4) fL Neut % (Auto) 52.3 % Lymph % (Auto) 36.1 % [place] % (Auto) 7.3 % Eos % (Auto) 3.2 % Baso % (Auto) 0.9 % Neut # (Auto) 6.76 (1.8-7.7) 10^3/u L Lymph # (Auto) 4.7 (0.8-4.8) 10^3/u L [place] # (Auto) 1.0 H (0.2-0.9) 10^3/u L Eos # (Auto) 0.4 (0.0-0.8) 10^3/u L Baso # (Auto) 0.1 (0.0-0.1) 10^3/u L Nucleated RBC % (a uto) 0 % Nucleated RBCs # 0.0 /100WBC Sodium 136 (136-145) mmol/L Potassium 3.1 L (3.5-5.1) mmol/L Chloride 99 (98-107) mmol/L Carbon Dioxide 16 L (22-29) mmol/L Anion Gap 24.1 H (5-19) BUN 13 (6-20) mg/dL Creatinine 1.0 H (0.5-0.9) mg/dL GFR Calculation 63.5 L (90-130) mL/min Glucose 131 H (65-115) mg/dL Calculated Osmolal ity 284 L (285-295) mOsm/k g Calcium 8.9 (8.5-10.5) mg/dL Total Bilirubin 0.9 (0.15-1.2) mg/dL AST 18 (0-32) U/L ALT 17 (0-33) U/L Alkaline Phosphata se 69 (35-105) IU/L Total Protein 7.6 (6.6-8.7) g/dL Albumin 4.4 (3.5-5.2) g/dL Globulin 3.2 (1.3-4.6) g/dL HCG, Qual Negative (Negative) Urine Color (Yellow) Urine Appearance (CLEAR) Urine pH (5-7) Ur Specific Gravit y (1.005-1.030) Urine Protein (Negative) Urine Glucose (UA) (Normal) Urine Ketones (Negative) Urine Blood (Negative) Urine Nitrate (Negative) Urine Bilirubin (Negative) Urine Urobilinogen (Negative) mg/dL Ur Leukocyte Sharita ase (Negative) Urine RBC (0-2) /hpf Urine WBC (0-5) /hpf Ur Squamous Epith Cells (0-5) /hpf Amorphous Sediment Urine Bacteria (NONE) /hpf Hyaline Casts /lpf Urine Mucus /hpf Salicylates 0.7 L (3-10) mg/dL Urine Opiates Scre en (Negative) ng/mL Acetaminophen < 5.0 L (10-30) ug/mL Ur Barbiturates Sc reen (Negative) ng/mL Ur Phencyclidine S crn (Negative) ng/mL Ur Amphetamines Sc reen (Negative) ng/mL U Benzodiazepines Scrn (Negative) ng/mL Urine Cocaine Scre en (Negative) ng/mL U Marijuana (THC) Screen (Negative) ng/mL 02/05/21 02/05/21 Range/Units 11:35 11:35 WBC (4.0-10.0) 10^3/ uL RBC (4.1-5.3) 10^6/u L Hgb (11.5-15.3) g/dL Hct (37.0-47.0) % MCV (81-99) fL MCH (28.0-34.0) pg MCHC (30.0-36.0) g/dL RDW (12.1-15.1) % Plt Count (130-400) 10^3/c mm MPV (7.4-10.4) fL Neut % (Auto) % Lymph % (Auto) % [place] % (Auto) % Eos % (Auto) % Baso % (Auto) % Neut # (Auto) (1.8-7.7) 10^3/u L Lymph # (Auto) (0.8-4.8) 10^3/u L [place] # (Auto) (0.2-0.9) 10^3/u L Eos # (Auto) (0.0-0.8) 10^3/u L Baso # (Auto) (0.0-0.1) 10^3/u L Nucleated RBC % (a uto) % Nucleated RBCs # /100WBC Sodium (136-145) mmol/L Potassium (3.5-5.1) mmol/L Chloride (98-107) mmol/L Carbon Dioxide (22-29) mmol/L Anion Gap (5-19) BUN (6-20) mg/dL Creatinine (0.5-0.9) mg/dL GFR Calculation (90-130) mL/min Glucose (65-115) mg/dL Calculated Osmolal ity (285-295) mOsm/k g Calcium (8.5-10.5) mg/dL Total Bilirubin (0.15-1.2) mg/dL AST (0-32) U/L ALT (0-33) U/L Alkaline Phosphata se (35-105) IU/L Total Protein (6.6-8.7) g/dL Albumin (3.5-5.2) g/dL Globulin (1.3-4.6) g/dL HCG, Qual (Negative) Urine Color Yellow (Yellow) Urine Appearance Clear (CLEAR) Urine pH 5 (5-7) Ur Specific Gravit y 1.020 (1.005-1.030) Urine Protein Neg (Negative) Urine Glucose (UA) Norm (Normal) Urine Ketones Negative (Negative) Urine Blood 2+ H (Negative) Urine Nitrate Negative (Negative) Urine Bilirubin Neg (Negative) Urine Urobilinogen Norm (Negative) mg/dL Ur Leukocyte Shariat ase Negative (Negative) Urine RBC 0-4 H (0-2) /hpf Urine WBC 0-4 H (0-5) /hpf Ur Squamous Epith Cells 0-4 H (0-5) /hpf Amorphous Sediment Not Reportable Urine Bacteria 1+ H (NONE) /hpf Hyaline Casts 0-4 H /lpf Urine Mucus 1+ /hpf Salicylates (3-10) mg/dL Urine Opiates Scre en Negative (Negative) ng/mL Acetaminophen (10-30) ug/mL Ur Barbiturates Sc reen Negative (Negative) ng/mL Ur Phencyclidine S crn Negative (Negative) ng/mL Ur Amphetamines Sc reen Positive H (Negative) ng/mL U Benzodiazepines Scrn Negative (Negative) ng/mL Urine Cocaine Scre en Negative (Negative) ng/mL U Marijuana (THC) Screen Negative (Negative) ng/mL Discharge Plan Discharge Patient Disposition: Admitted As Inpatient Admit Provider: Fletcher Siddiqui Clinical Impression: Drug-induced psychotic disorder with delusions, Methamphetamine use Condition: Stable Coding Level of Care Code ED Technical Specialist [employer] Fwd Exam Comprehensive
[2021-02-05 12:00] LABS: Basophils # 0.1 10^3/uL (0.0-0.1); Basophils % 0.9 %; Eosinophils # 0.4 10^3/uL (0.0-0.8); Eosinophils % 3.2 %; Hematocrit 42.6 % (37.0-47.0); Hemoglobin 14.4 g/dL (11.5-15.3); Lymphocytes # 4.7 10^3/uL (0.8-4.8); Lymphocytes % 36.1 %; Mean Corpuscular HGB Conc 33.8 g/dL (30.0-36.0); Mean Corpuscular Hemoglobin 29.5 pg (28.0-34.0); Mean Corpuscular Volume 87.3 fL (81-99); Mean Platelet Volume 10.2 fL (7.4-10.4); Monocytes % 7.3 %; Neutrophils # 6.76 10^3/uL (1.8-7.7); Neutrophils % 52.3 %; Nucleated Red Blood Cells % 0 %; Platelet Count 420 10^3/cmm (130-400); Red Blood Count 4.88 10^6/uL (4.1-5.3); Red Cell Distribution Width 12.2 % (12.1-15.1)
[2021-02-05 12:10] LABS: Add Urine Microscopic? YES; Bilirubin Urine Neg (Negative); Blood Urine 2+ (Negative); Glucose Urine UA Norm (Normal); Ketones Urine Negative (Negative); Leukocyte Esterase Urine Negative (Negative); Nitrate Urine Negative (Negative); Protein Urine Neg (Negative); Urine Appearance Clear (CLEAR); Urine Color Yellow (Yellow); Urobilinogen Urine Norm (Negative); pH Urine 5 (5-7)
[2021-02-05 12:11] LABS: HCG Qualitative Urine. Negative (Negative)
[2021-02-05 12:17] LABS: Amphetamines Screen Urine Positive (Negative); Bacteria Urine 1+ /hpf; Barbiturates Screen Urine Negative (Negative); Benzodiazepines Screen Urine Negative (Negative); Cocaine Screen Urine Negative (Negative); Mucus Urine 1+ /hpf; Opiate Screen Urine Negative (Negative); PCP Screen Urine Negative (Negative); Squamous Epithelial Cell Urine 0-4 /hpf (0-5); THC Screen Urine Negative (Negative)
[2021-02-05 12:18] LABS: Add Urine Culture? No; Hyaline Casts Urine 0-4 /lpf; RBC Urine 0-4 /hpf (0-2); WBC Urine 0-4 /hpf (0-5)
--- NOTE | 2021-02-05 12:26 | PC.NURSE ---
at approx 1115 pt brought in via police when at court pt became combative and liquefier ordered her to be brought here and be placed on a 96 hr hold. When pt arrived pt was aggressive and combative. We attempted to de-escalate verbally, but it was unsuccessful. violent restraints applied 200mg ketamine IM administered. at 1130 restraints removed at 1215 restraints reapplied and additional 200mg IM ketamine administered
--- NOTE | 2021-02-05 12:28 | PC.NURSE ---
Pt became violent and agitated again and VO was given by Dr Albright for 4 pt restraint bed and 200mg IM Ketamine. Pt placed in restraints by nurse, Dr Albright and security, and IM Ketamine given at 1223 by this nurse to right thigh. Pt placed back on cardiac and BP monitoring. Sitter at bedside.
[2021-02-05 12:37] LABS: Alanine Aminotransferase 17 U/L (0-33); Albumin Level 4.4 g/dL (3.5-5.2); Alkaline Phosphatase 69 IU/L (35-105); Anion Gap 24.1 (5-19); Aspartate Amino Transferase 18 U/L (0-32); Blood Urea Nitrogen 13 mg/dL (6-20); Calcium 8.9 mg/dL (8.5-10.5); Carbon Dioxide 16 mmol/L (22-29); Chloride 99 mmol/L (98-107); Globulin 3.2 g/dL (1.3-4.6); Glomerular Filtration Rate 63.5 mL/min (90-130); Glucose 131 mg/dL (65-115); Osmolality Calculated 284 mOsm/kg (285-295); Potassium 3.1 mmol/L (3.5-5.1); Salicylate 0.7 mg/dL (3-10); Sodium 136 mmol/L (136-145); Total Bilirubin 0.9 mg/dL (0.15-1.2); Total Protein 7.6 g/dL (6.6-8.7)
[2021-02-05 12:53] LABS: Acetaminophen < 5.0 ug/mL (10-30)
--- NOTE | 2021-02-05 13:19 | PC.NURSE ---
Pt removed from each restraint one at a time, ROM performed. Pt became combative during ROM and remains in restraints. Pt continued on monitoring of VS. Pt declined offer of food and water.
[2021-02-05] MEDS: ziprasidone 20 mg/mL SDV 10 MG IM (13:32)
[2021-02-05] MEDS: water for injection-sterile 10 ML (13:32)
[2021-02-05] MEDS: LORazepam 2 mg/mL INJ 1 mL IM (13:39)
[2021-02-05] MEDS: trazodone 50 mg Tablet PO (23:20)
[2021-02-05] MEDS: hyDROXYzine 25 mg Capsule 50 MG PO (23:20)
--- NOTE | 2021-02-05 23:20 | PC.NURSE ---
PRN Medications Given Patient up at nurses station asking for something to eat. Patient easily agitated. Given scrubs to change into and sandwich and yogurt given. Patient stating she can hear what we are thinking and know staff was thinking about her. I'm not dumb . Vistaril and Trazodone given. Patient took them without incident and continued to eat sandwich. Patient mumbling to herself and rocking as sitting. Will continue to monitor.
--- NOTE | 2021-02-06 | PC.NURSE ---
PRN Follow Up Patient appears more calm, finished snack and walked back to room. Asked staff to check the bathroom and make sure no one was in there. FURNACE OPERATOR AND TENDER check the bathroom and reassured her that she was safe and we would be checking on her every 15 minutes. Will continue to monitor.
[2021-02-06 06:00] VITALS: PULSE 100; RESP 16; TEMP 36.8; O2SAT 96
[2021-02-06] MEDS: acetaminophen 325 mg Tablet 650 MG PO (08:24)
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
[2021-02-06 14:00] VITALS: BP 91/54; PULSE 99; RESP 20; TEMP 36.8; O2SAT 92
[2021-02-06 20:16] VITALS: RESP 16
[2021-02-07 06:00] VITALS: RESP 16
--- NOTE | 2021-02-07 10:33 | PM.NPN ---
Subjective NPU Subjective: Interval history: Bernice presents today reporting that she is doing okay. She denies any significant need for treatment or changes. She denies any hallucinations or withdrawal although she seemed quite antsy and was reporting being hot. She denied any use since I saw her last. And was somewhat annoyed at my question about why her UDS was positive for amphetamines. I explained to her that concerns that she was using again which was the reason for her presentation to the court and to the hospital and her aggression prior to admission. She was fairly resistant to the conversation and then was hoping we had some trail mix. She asked but it was lunchtime and I explained to her that was 1030. She reported that she is sleeping fine and eating okay. Mental Status Exam MSE Comments: This is a well-nourished, well-developed white female in hospital scrubs with improving eye contact appearing disheveled/unkempt. With no abnormal movements except for significant psychomotor retardation. Mostly uncooperative with exam in mild distress. Speech was limited and decreased rate and volume, but clearer. Mood described as tired, affect congruent and irritable. Thought process more organized. Thought content: Patient denied suicidal or homicidal ideations, there were no delusions reported or noted, she denied any auditory or visual hallucinations. Attention and concentration were improving and memory was unreliable but none were formally tested. She is more alert and oriented x3. Insight and judgment are impaired, impulse control is impaired. Vitals/I&O/Wt Last Vital Signs Temp 98.3 F 02/06/21 14:00 Pulse 99 02/06/21 14:00 Resp 16 02/07/21 06:00 BP 91/54 02/06/21 14:00 Pulse Ox 92 02/06/21 14:00 Weight last 48 hrs Weight 61.235 kg Data NPU : 02/05/21 11:32 02/05/21 11:32 A&P Additional A&P Information (1) Drug-induced psychotic disorder with delusions: (2) Psychosis: (3) Methamphetamine use: (4) Depression: Additional A&P Information This is a 35-year-old white female with a long history of addiction, specifically methamphetamine who presents as she has recently presented with psychosis likely methamphetamine induced who presents having arrived at the hospital with police aggressive, combative and requiring chemical and physical restraint for her safety and the safety of others now slowly coming out of that chemical restraint slowly. 1. Continue current medication. 2. Continue every 15 minute checks for safety. 3. Encourage individual, group and milieu therapies. 4. Encourage sober living treatment after discharge at the highest level of care to which he is willing to commit. 5. We will work with treatment team tomorrow to to get her connected to a more intensive services or work on a safe discharge plan. Involuntary Hold Information 96 Hour Hold: 96 Hour Involuntary Admission: Yes 96 Hour Hold Ending Date: 02/11/21 96 Hour Hold Ending Time: 11:50 Attestations NPU Medical Necessity Statement*: Inpatient hospitalization is medically necessary and the clinically appropriate intervention at this time. We will monitor medications and make changes as indicated. Likely length of stay 1-4 days. 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
[2021-02-07 13:45] VITALS: BP 109/61; PULSE 91; RESP 18; TEMP 37.2; O2SAT 97
[2021-02-07 20:58] VITALS: BP 94/57; PULSE 68; RESP 16; TEMP 37.2; O2SAT 97
[2021-02-08 06:00] VITALS: BP 91/53; PULSE 76; RESP 16; TEMP 36.7; O2SAT 98
--- NOTE | 2021-02-08 12:23 | P.PN_ITS ---
Subjective NPU Subjective: Interval history: Presents today reporting that she's still tired. She reports she is doing a lot better and denies having any thoughts about what she is going to do to stop this pattern of use and hospitalization. She denies any issues that need addressing currently and denies problems eating or sleeping. Mental Status Exam MSE Comments: This is a well-nourished, well-developed white female in hospital scrubs with improving eye contact appearing more put together. With no abnormal movements except for continued psychomotor retardation. A little more cooperative with exam in less distress. Speech was limited and decreased rate and volume, but clearer. Mood described as tired, affect congruent and less irritable. Thought process more organized. Thought content: Patient denied suicidal or homicidal ideations, there were no delusions reported or noted, she denied any auditory or visual hallucinations. Attention and concentration were improving and memory was unreliable but none were formally tested. She is more alert and oriented x3. Insight and judgment are impaired, impulse control is impaired. Vitals/I&O/Wt Last Vital Signs Temp 98.1 F 02/08/21 06:00 Pulse 76 02/08/21 06:00 Resp 16 02/08/21 06:00 BP 91/53 02/08/21 06:00 Pulse Ox 98 02/08/21 06:00 Weight last 48 hrs Weight 61.235 kg Data NPU : 02/05/21 11:32 02/05/21 11:32 A&P Additional A&P Information (1) Drug-induced psychotic disorder with delusions: (2) Psychosis: (3) Methamphetamine use: (4) Depression: Additional A&P Information This is a 35-year-old white female with a long history of addiction, specifically methamphetamine who presents as she has recently presented with psychosis likely methamphetamine induced who presents having arrived at the hospital with police aggressive, combative and requiring chemical and physical restraint for her safety and the safety of others now slowly coming out of that chemical restraint slowly. 1. Continue current medication. 2. Continue every 15 minute checks for safety. 3. Encourage individual, group and milieu therapies. 4. Encourage sober living treatment after discharge at the highest level of care to which he is willing to commit. 5. We will await treatment team resource processing with her and prepare for discharge in the next 48 hours if there is no movement in her plan for higher level of outpatient care. Involuntary Hold Information 96 Hour Hold: 96 Hour Involuntary Admission: Yes 96 Hour Hold Ending Date: 02/11/21 96 Hour Hold Ending Time: 11:50 Attestations NPU Medical Necessity Statement*: Inpatient hospitalization is medically necessary and the clinically appropriate intervention at this time. We will monitor me dications and make changes as indicated. Likely length of stay 1-3 days. 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
[2021-02-08 14:00] VITALS: BP 100/65; PULSE 66; RESP 18; TEMP 37; O2SAT 98
[2021-02-08] MEDS: ondansetron 4 MG Tablet PO (15:50)
[2021-02-08] MEDS: nicotine 2 mg Gum BUCCAL (17:58)
[2021-02-08 19:51] VITALS: BP 106/73; PULSE 80; RESP 15; TEMP 37.4; O2SAT 92
[2021-02-08] MEDS: trazodone 50 mg Tablet PO (20:04)
--- NOTE | 2021-02-08 20:09 | PC.NURSE ---
pt came to nurses desk and requested sleep med, trazodone 50mg po given.
[2021-02-09 06:00] VITALS: BP 88/49; PULSE 85; RESP 15; TEMP 36.8; O2SAT 97
[2021-02-09] MEDS: ondansetron 4 MG Tablet PO (11:47)
[2021-02-09] MEDS: nicotine 2 mg Gum BUCCAL ×2 (11:47→18:02)
--- NOTE | 2021-02-09 11:48 | PC.NURSE ---
Addendum entered by Karla Enriquez LPN 02/09/21 15:11: prn med effective no further c/o nausea Original Note: PRN ZOFRAN 4 MG GIVEN PO PER PT C/O STATED NAUSEA. WILL CONT TO MONITOR
[2021-02-09 14:00] VITALS: BP 96/70; PULSE 73; RESP 18; TEMP 36.2; O2SAT 96
--- NOTE | 2021-02-09 17:14 | PM.NPN ---
Subjective NPU Subjective: Interval history: Bernice presents today reporting that she is feeling a bit better. She continues to take her medication but denies any interest in a high level of care. We discussed the risk benefits and alternatives of likely discharge tomorrow and she also is even in this note. Mental Status Exam MSE Comments: This is a well-nourished, well-developed white female in hospital scrubs with improving eye contact appearing more put together. With no abnormal movements except for continued psychomotor retardation. Mostly cooperative with exam in no acute distress. Speech was limited, but more normal rate and volume, but clearer. Mood described as a little better, affect congruent. Thought process more organized. Thought content: Patient denied suicidal or homicidal ideations, there were no delusions reported or noted, she denied any auditory or visual hallucinations. Attention and concentration were improving and memory was unreliable but none were formally tested. She is more alert and oriented x3. Insight and judgment are limited but improving, impulse control is limited. Vitals/I&O/Wt Last Vital Signs Temp 98.8 F 02/09/21 21:13 Pulse 67 02/09/21 21:13 Resp 16 02/09/21 21:13 BP 99/51 02/09/21 21:13 Pulse Ox 98 02/09/21 21:13 Data NPU : 02/05/21 11:32 02/05/21 11:32 A&P Additional A&P Information (1) Drug-induced psychotic disorder with delusions: (2) Psychosis: (3) Methamphetamine use: (4) Depression: Additional A&P Information This is a 35-year-old white female with a long history of addiction, specifically methamphetamine who presents as she has recently presented with psychosis likely methamphetamine induced who presents having arrived at the hospital with police aggressive, combative and requiring chemical and physical restraint for her safety and the safety of others now slowly coming out of that chemical restraint slowly. 1. Continue current medication. 2. Continue every 15 minute checks for safety. 3. Encourage individual, group and milieu therapies. 4. Encourage sober living treatment after discharge at the highest level of care to which he is willing to commit. Involuntary Hold Information 96 Hour Hold: 96 Hour Involuntary Admission: Yes 96 Hour Hold Ending Date: 02/11/21 96 Hour Hold Ending Time: 11:50 Attestations NPU Medical Necessity Statement*: Inpatient hospitalization is medically necessary and the clinically appropriate intervention at this time. We will monitor medications and make changes as indicated. Likely length of stay 1-2 days. 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
[2021-02-09 21:13] VITALS: BP 99/51; PULSE 67; RESP 16; TEMP 37.1; O2SAT 98
--- NOTE | 2021-02-10 04:52 | PC.NURSE ---
PM ASSESSMENT HEART/LUNG SOUNDS NORMAL, V/S ARE WNL, DENIES PAIN, DENIES SI/HI. DENIES AH/VH. PT IS COOPERATIVE WITH STAFF, ASKS AND ANSWERS QUESTION APPROPRIATELY, INTERACTING WITH OTHER PATIENTS IN AN APPROPRIATE MANNER, SAYS I CAN NOT WAIT TO GO HOME IT THE MORNING.
[2021-02-10 06:00] VITALS: BP 86/56; PULSE 63; RESP 15; TEMP 36.9; O2SAT 98
[2021-02-10] MEDS: nicotine 2 mg Gum BUCCAL (08:28)
[2021-02-10] MEDS: ondansetron 4 MG Tablet PO (10:52)
--- NOTE | 2021-02-10 10:53 | PC.NURSE ---
PRN ZOFRAN 4 MG GIVEN PO PER PT C/O FEELING NAUSEATED
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
[2021-02-10 11:43] VITALS: BP 86/56; PULSE 63; RESP 15; TEMP 36.9; O2SAT 98
== END 2021-02-10 13:10 | disposition home or self-care (01) | DRG 897 ==
LOC: ER 11:30 → NP 14:10
PROVIDERS: Admitting Provider Psychiatry & Neurology Psychiatry; Emergency Provider Family Medicine; PCP Family Medicine; Visit Provider Psychiatry & Neurology Psychiatry
DX: F15.959 Other stimulant use, unspecified with stimulant-induced psychotic disorder, unspecified (principal); F15.90 Other stimulant use, unspecified, uncomplicated; F24 Shared psychotic disorder; F32.9 Major depressive disorder, single episode, unspecified
CPT/HCPCS: 80053; 80306; 80307; 81001; 81025; 85025; 96372; 99285; J2060; J3486; J3490; Q0162

== ENCOUNTER 2021-09-29 14:21 | Emergency (ER) | payer BC, MEDICAID, SELFPAY ==
[2021-09-29 14:42] VITALS: BP 103/62; PULSE 85; RESP 17; TEMP 36.8; O2SAT 98; BMI 21.2
--- NOTE | 2021-09-29 19:29 | ED_ITS ---
HPI - Abdominal Pain General: Chief Complaint: Abdominal Pain Stated Complaint: R SIDE ABD PAIN Time Seen by Provider: 09/29/21 19:17 Source: patient Mode of arrival: ambulatory Limitations: no limitations History of Present Illness: HPI narrative: 35-year-old female who states been having abdominal pain for last 2 weeks. States pain is sharp in nature and actually started in her epigastric region but is migrated down to her right lower quadrant she is currently on her menstruation denies any dysuria or discharge she denies any worsening improving factors her pain is sharp rates it a 5 out of 10 currently she had a cholecystectomy no other surgeries. MD elicited complaint: abdominal pain Associated Symptoms: Reports nausea and vomiting; Denies chills, dysuria and fever(s) Review of Systems Const: Denies: fever(s), chills, body aches or change in appetite Eyes: Denies: blurry vision or eye discomfort ENMT: Denies: throat pain or dental pain Card: Denies: chest pain Resp: Denies: dyspnea GI: Reports: abdominal pain, nausea and vomiting : Denies: dysuria Musc: Denies: neck pain or back pain Skin/Breast: Denies: rash Neuro: Denies: headache(s) Psych: Denies: depression Grady/Lymph: Denies: easy bruising All/Imm: Denies: urticaria PFSH ED PFSH: Family History (Updated 04/06/21 @ 16:05 by Milana Elder LPN) Other Diabetes Social History (Reviewed 02/05/21 @ 11:39 by Arlette Albright MD, [facility] [place]) Current gender identity: Female Physical Exam Const: COMMON NORMALS: no acute distress, patient oriented x3 and healthy appearing HENMT: COMMON NORMALS: normocephalic and atraumatic HEAD & SCALP: normocephalic and atraumatic Eye: COMMON NORMALS: Equal, round and reactive pupils present and EOMs intact bilaterally PUPIL: Yes Equal, round and reactive pupils present Neck/C-Spine: COMMON NORMALS: full ROM and supple Chest: COMMONS NORMALS: normal inspection of the chest and normal palpation of entire chest wall Resp: COMMON NORMALS: normal respiratory effort, No retractions, No use of accessory muscles and clear to auscultation bilaterally AUSCULTATION: clear to auscultation bilaterally Cardio: COMMON NORMALS: regular rate, regular rhythm and No murmurs present (Cardio) RATE: regular rate RHYTHM: regular rhythm GI: COMMON NORMALS: Normal to inspection, nondistended, normoactive bowel sounds present, Soft to palpation, non-tender and no masses PALPATION: Yes Soft to palpation and Yes Tenderness to palpation present (GI) Details: RLQ Extremity: COMMON NORMALS: normal to inspection and full ROM Neuro: COMMON NORMALS: patient oriented x3, moves all extremities and no focal motor deficits Psych: COMMON NORMALS: mental status grossly normal, Normal thought process present and cooperative THOUGHT PROCESS: Normal thought process present Skin: COMMON NORMALS: no rashes or lesions noted and no wounds GENERAL SKIN EXAM: no rashes or lesions noted Course Vital Signs: Vital signs: Vital Signs Temperature 98.3 F 09/29/21 14:42 Pulse Rate 85 09/29/21 14:42 Respiratory Rate 18 09/29/21 20:14 Blood Pressure 103/62 09/29/21 14:42 Pulse Oximetry 98 09/29/21 20:14 MDM - Abdominal Pain MDM Narrative: Medical decision making narrative: Patient presents for abdominal pain CT shows a possible abscess could be PID patient is currently on her menstruation. She is afebrile here white counts normal did give her Mefoxin here we will place her on doxycycline and flagy aLong with pain meds. She is to follow-up with Dr. Santiago have spoken to on the phone. She is return if worsening. Lab Data: Labs: Lab Results 09/29/21 09/29/21 09/29/21 19:41 19:41 19:41 WBC 11.4 10^3/uL H 10 ^3/uL (4.0-10.0) RBC 4.88 10^6/uL 10^6 /uL (4.1-5.3) Hgb 14.9 g/dL g/dL (11.5-15.3) Hct 43.7 % % (37.0-47.0) MCV 89.5 fl fl (81-99) MCH 30.5 pg pg (28.0-34.0) MCHC 34.1 g/dL g/dL (30.0-36.0) RDW 12.3 % % (12.1-15.1) Plt Count 385 10^3/cmm 10^3 /cmm (130-400) MPV 10.3 fL fL (7.4-10.4) Neut % (Auto) 57.0 % % Lymph % (Auto) 34.2 % % [place] % (Auto) 4.7 % % Eos % (Auto) 3.3 % % Baso % (Auto) 0.5 % % Neut # (Auto) 6.49 10^3/uL 10^3 /uL (1.8-7.7) Lymph # (Auto) 3.9 10^3/uL 10^3/ uL (0.8-4.8) [place] # (Auto) 0.5 10^3/uL 10^3/ uL (0.2-0.9) Eos # (Auto) 0.4 10^3/uL 10^3/ uL (0.0-0.8) Baso # (Auto) 0.1 10^3/uL 10^3/ uL (0.0-0.1) Nucleated RBC % (a uto) 0 % % Nucleated RBCs # 0.0 /100WBC /100W BC Sodium 138 mmol/L mmol/L (136-145) Potassium 3.7 mmol/L mmol/L (3.5-5.1) Chloride 103 mmol/L mmol/L (98-107) Carbon Dioxide 22 mmol/L mmol/L (22-29) Anion Gap 16.7 (5-19) BUN 11 mg/dL mg/dL (6-20) Creatinine 0.7 mg/dL mg/dL (0.5-0.9) GFR Calculation 95.8 mL/min mL/mi n (90-130) Glucose 87 mg/dL mg/dL (65-115) Calculated Osmolal ity 285 mOsm/kg mOsm/ kg (285-295) Calcium 8.6 mg/dL mg/dL (8.5-10.5) Total Bilirubin 0.3 mg/dL mg/dL (0.15-1.2) AST 8 U/L U/L (0-32) ALT 6 U/L U/L (0-33) Alkaline Phosphata se 54 IU/L IU/L (35-105) Total Protein 6.7 g/dL g/dL (6.6-8.7) Albumin 4.2 g/dL g/dL (3.5-5.2) Globulin 2.5 g/dL g/dL (1.3-4.6) Lipase 19 U/L U/L (13-60) HCG, Qual Negative (Negative) Imaging Data ^: CT Abd/Pel: Attestation: I personally reviewed and interpreted this imaging study as follows: Radiologist's impression: [employer] [facility] [address] [facility] [place] [address] CT Scan Report Signed Patient: Bernice Obrien Unit #: [id number] : 1985 Age/Sex: 35 / F ADM Date: 09/29/21 Loc: ER Room/Bed: Attending Dr: Ordering Provider/Ordering MD: Winter George MD Date of Service: 09/29/21 Procedure(s): CT abdomen pelvis w con* [id number] Accession Number(s): [id number] Report Number: [id number] PROCEDURE INFORMATION: Exam: CT Abdomen And Pelvis With Contrast Exam date and time: 09/29/2021 7:27 PM Age: 35 years old Clinical indication: Abdominal pain; Localized; Right lower quadrant (rlq); Prior surgery; Surgery type: Gb, cervic cauderized; Additional info: Abd pain TECHNIQUE: Imaging protocol: Computed tomography of the abdomen and pelvis with contrast. Radiation optimization: All CT scans at this facility use at least one of these dose optimization techniques: automated exposure control; mA and/or kV adjustment per patient size (includes targeted exams where dose is matched to clinical indication); or iterative reconstruction. Contrast material: OMNI 300; Contrast volume: 95 ml; Contrast route: INTRAVENOUS (IV); COMPARISON: US gall bladder [id number] 11/22/2014 3:31 PM RADIATION DOSE METRICS: Total DLP (mGy-cm): 756.44 FINDINGS: Liver: Normal. No mass. Gallbladder and bile ducts: Mild intrahepatic biliary dilation. Cholecystectomy. Pancreas: Normal. No ductal dilation. Spleen: Normal. No splenomegaly. Adrenal glands: Normal. No mass. Kidneys and ureters: Normal. No hydronephrosis. Stomach and bowel: Unremarkable. No obstruction. No mucosal thickening. Appendix: No evidence of appendicitis. Intraperitoneal space: 3.9 cm focal amount of fluid in the right deep pelvis with perhaps some peripheral enhancement and punctate pockets of free air, perhaps related to provided history of cervical intervention, infection of the fluid is not excluded, please correlate with surgical history. Vasculature: Unremarkable. No abdominal aortic aneurysm. Lymph nodes: Unremarkable. No enlarged lymph nodes. Urinary bladder: Unremarkable as visualized. Reproductive: Unremarkable as visualized. Bones/joints: Unremarkable. No acute fracture. Soft tissues: Unremarkable. CT/CT abdomen pelvis w con* [id number] IMPRESSION: 1. 3.9 cm focal amount of fluid in the right deep pelvis with perhaps some peripheral enhancement and punctate pockets of free air, perhaps related to provided history of cervical intervention, infection of the fluid is not excluded, please correlate with surgical history. 2. Mild intrahepatic biliary dilation. 3. Cholecystectomy. Radiation Dose CTDIVOL = (mGy): DLP = 756.44 (mGy-cm) Dictated By: Major Carbajal MD Signed By: Major Carbajal MD Signed Date/Time: 09/29/212038 DD/ 26 Discharge Plan Discharge Patient Disposition: Home Clinical Impression: Abdominal pain Qualifiers: Abdominal location: right lower quadrant Qualified Code(s): R10.31 - Right lower quadrant pain Condition: Stable Prescriptions: New doxycycline hyclate 100 mg tablet 100 mg PO BID 14 Days Qty: 28 RF: 0 Flagyl 500 mg tablet 500 mg PO Q8H 7 Days Qty: 21 RF: 0 hydrocodone-acetaminophen 5-325 mg tablet 1 tab PO Q6H PRN (Reason: pain) Qty: 14 RF: 0 ondansetron 4 mg tablet,disintegrating 4 mg PO Q6H PRN (Reason: nausea and vomiting) Qty: 14 RF: 0 No Action fluticasone propionate [Allergy Relief (fluticasone)] 50 mcg/actuation spray,suspension 2 spray intranasal DAILY RF: 0 prednisone 20 mg tablet 20 mg PO DAILY RF: 0 amoxicillin-pot clavulanate 875-125 mg tablet 1 tab PO BID RF: 0 albuterol sulfate [ProAir HFA] 90 mcg/actuation HFA aerosol inhaler 2 puff inhalation Q6H PRNRF: 0 Discharge Orders: Discharge ED (Routine); Ordered 09/29/21 Ordered By: Winter George Referrals: Tony Santiago MD [Physician] - 1-3 days Adán,Reuben F, DO [Primary Care Provider] - Discharge Diet: Advance as tolerated Discharge Activity: Resume usual activity Patient Instructions: Abdominal Pain (ED), Opioid Safety Coding Level of Care Code ED Director Of Institutional Sales for Chg Fwd Exam Comprehensive
[2021-09-29 19:44] LABS: Basophils # 0.1 10^3/uL (0.0-0.1); Basophils % 0.5 %; Eosinophils # 0.4 10^3/uL (0.0-0.8); Eosinophils % 3.3 %; Hematocrit 43.7 % (37.0-47.0); Hemoglobin 14.9 g/dL (11.5-15.3); Lymphocytes # 3.9 10^3/uL (0.8-4.8); Lymphocytes % 34.2 %; Mean Corpuscular HGB Conc 34.1 g/dL (30.0-36.0); Mean Corpuscular Hemoglobin 30.5 pg (28.0-34.0); Mean Corpuscular Volume 89.5 fl (81-99); Mean Platelet Volume 10.3 fL (7.4-10.4); Monocytes # 0.5 10^3/uL (0.2-0.9); Monocytes % 4.7 %; Neutrophils # 6.49 10^3/uL (1.8-7.7); Nucleated Red Blood Cells % 0 %; Platelet Count 385 10^3/cmm (130-400); Red Blood Count 4.88 10^6/uL (4.1-5.3); Red Cell Distribution Width 12.3 % (12.1-15.1); White Blood Count 11.4 10^3/uL (4.0-10.0)
[2021-09-29 19:55] LABS: HCG, Serum Qual Negative (Negative)
[2021-09-29 20:02] LABS: Alanine Aminotransferase 6 U/L (0-33); Albumin Level 4.2 g/dL (3.5-5.2); Alkaline Phosphatase 54 IU/L (35-105); Anion Gap 16.7 (5-19); Aspartate Amino Transferase 8 U/L (0-32); Blood Urea Nitrogen 11 mg/dL (6-20); Calcium 8.6 mg/dL (8.5-10.5); Carbon Dioxide 22 mmol/L (22-29); Chloride 103 mmol/L (98-107); Globulin 2.5 g/dL (1.3-4.6); Glomerular Filtration Rate 95.8 mL/min (90-130); Glucose 87 mg/dL (65-115); Lipase 19 U/L (13-60); Osmolality Calculated 285 mOsm/kg (285-295); Potassium 3.7 mmol/L (3.5-5.1); Sodium 138 mmol/L (136-145); Total Bilirubin 0.3 mg/dL (0.15-1.2); Total Protein 6.7 g/dL (6.6-8.7)
[2021-09-29] MEDS: ondansetron 2 mg/ML SDV 2 mL 4 MG IVP (20:10)
[2021-09-29 20:14] VITALS: RESP 18; O2SAT 98
[2021-09-29] MEDS: morphine 4 mg/mL SDV 1 mL IVP (20:14)
[2021-09-29] MEDS: iohexol 300 mg/mL 100 mL Btl IV (20:19)
[2021-09-29 20:30] VITALS: BP 116/64; PULSE 82; RESP 18; O2SAT 97
[2021-09-29 20:56] VITALS: RESP 18; O2SAT 99
[2021-09-29] MEDS: HYDROmorphone 1 mg/mL INJ 1 mL IVP (20:56)
[2021-09-29] MEDS: sodium chloride 0.9% 1,000 ML 999 ML IV (21:09)
[2021-09-29 21:33] LABS: Add Urine Microscopic? YES; Bilirubin Urine Neg (Negative); Blood Urine 3+ (Negative); Glucose Urine UA Norm (Normal); Ketones Urine Negative (Negative); Leukocyte Esterase Urine 1+ (Negative); Nitrate Urine Negative (Negative); Protein Urine Neg (Negative); Urine Appearance Hazy (CLEAR); Urine Color Yellow (Yellow); Urobilinogen Urine 1 mg/dL (Negative); pH Urine 5 (5-7)
[2021-09-29 21:34] LABS: Add Urine Culture? Yes
[2021-09-29 21:35] LABS: Bacteria Urine 1+ /hpf; Squamous Epithelial Cell Urine 0-4 /hpf (0-5); WBC Urine 15-25 /hpf (0-5)
[2021-09-29 22:19] VITALS: BP 94/56; PULSE 76; RESP 96; O2SAT 98
[2021-09-29 22:34] VITALS: BP 94/56; PULSE 82; RESP 18; O2SAT 95
--- NOTE | 2021-09-30 10:06 | DCPLANNER ---
trust manager had message to schedule a follow up appointment for patient with [facility]. trust manager called the [facility], spoke with Juice, gave clinic patients information. trust manager was told that patients information would be printed and reviewed. Clinic will call patient with appointment information.
--- NOTE | 2021-10-25 07:20 | DCPLANNER ---
Patient had a follow up appointment scheduled for 10.05.[address] Santiago at [facility] - patient did attend appointment.
== END 2021-09-29 21:20 | disposition home or self-care (01) ==
PROVIDERS: Emergency Provider Emergency Medicine; PCP Family Medicine
DX: R10.31 Right lower quadrant pain (principal)
CPT/HCPCS: 74177; 80053; 81001; 83690; 84703; 85025; 87086; 96365; 96375; 99284; J0694; J1170; J2270; J2405; J7030; Q9967

== ENCOUNTER 2021-09-30 18:31 | Emergency (ER) | payer BC, MEDICAID, SELFPAY ==
[2021-09-30] VITALS (7 sets, daily range): BP systolic 110–122; BP diastolic 47–69; PULSE 72–97; RESP 18–20; TEMP 36.7; O2SAT 97–100; BMI 21.2
--- NOTE | 2021-09-30 18:49 | ED_ITS ---
Documented by User: EARL Jackson 10/01/21 03:43 HPI - Abdominal Pain General: Chief Complaint: Abdominal Pain Stated Complaint: ABD PAIN Time Seen by Provider: 09/30/21 18:34 History of Present Illness: HPI narrative: Patient is a 35-year-old female comes to the ED via EMS for abdominal pain. Abdominal pain has been going on for the past 2 weeks. Patient was seen here in the ED for same complaint yesterday September 29. CT showed a possible abscess that could be related to PID. Dr. George contacted the [facility] specialist Dr. Santiago told outpatient case and she was discharged home with a prescription for doxycycline, Flagyl, pain and antinausea meds. Referral was sent and and patient was to follow-up with Dr. Santiago in the next 3 days. She says her symptoms have gotten worse she is having increased pain and increased nausea, but denies any emesis. Patient says she did not fill any of the prescriptions she was sent home with yesterday. She did not take the prescribed nausea or pain med to help with her symptoms. Associated Symptoms: Reports nausea; Denies chills, constipation, diarrhea, dysuria, fever(s), hematochezia, kurt turia and vomiting Review of Systems Const: Denies: fever(s), chills or fatigue Eyes: Denies: change in vision or eye discomfort ENMT: Denies: throat pain, odynophagia, nasal discharge or nasal congestion Card: Denies: chest pain, palpitations, edema, swelling of feet/ankles, dyspnea on exertion or orthopnea Resp: Denies: dyspnea, productive cough or non-productive cough GI: Reports: abdominal pain and nausea; Denies: vomiting, diarrhea, constipation or hematochezia : Denies: flank pain, dysuria or hematuria Musc: Denies: neck pain, back pain or extremity swelling Skin/Breast: Denies: rash or new lesions Neuro: Denies: headache(s), numbness in extremities or weakness in extremities PFSH ED PFSH: Family History Other Diabetes Social History Current gender identity: Female Physical Exam Const: COMMON NORMALS: no acute distress, patient oriented x3 and alert GENERAL APPEARANCE: cooperative and comfortable HENMT: COMMON NORMALS: normocephalic HEAD & SCALP: normocephalic MOUTH: Normal oral and palatal mucosa present THROAT: posterior oropharynx normal and uvula midline Neck/C-Spine: COMMON NORMALS: supple GENERAL: Yes normal visual inspection Resp: COMMON NORMALS: normal respiratory effort, No retractions, No use of accessory muscles and clear to auscultation bilaterally AUSCULTATION: clear to auscultation bilaterally Cardio: COMMON NORMALS: regular rate, regular rhythm, S1 normal heart sound present, S2 normal heart sound present, No gallops present (Cardio), No clicks present (Cardio), No murmurs present (Cardio) and Peripheral pulses 2+ throughout RATE: regular rate RHYTHM: regular rhythm HEART SOUNDS: S1 normal heart sound present and S2 normal heart sound present PERIPHERAL PULSES: Peripheral pulses 2+ throughout GI: COMMON NORMALS: Normal to inspection, nondistended, normoactive bowel sounds present, Soft to palpation and no masses PALPATION: Yes Soft to palpation and Yes Tenderness to palpation present (GI) Details: other (Right lower pelvic tenderness) : COMMON NORMALS: Yes no CVA tenderness BLADDER/KIDNEY EXAM: Yes no CVA tenderness Back/Pelvis: COMMON NORMALS: no CVA tenderness Extremity: COMMON NORMALS: normal to inspection Neuro: COMMON NORMALS: patient oriented x3 SENSORIUM/ORIENTATION: Yes alert GAIT: Yes Normal gait present Skin: GENERAL SKIN EXAM: dry skin Course ED course: Patient is a 35-year-old female comes to the ED with abdominal pain and nausea. She was seen yesterday and discharged with a prescription for antinausea med, pain med, Flagyl and doxycycline. Patient was set up to have outpatient follow-up with Dr. Santiago in the next 3 days. She did not fill any of her prescriptions and is returning because she still having abdominal pain and nausea. I discussed with patient the importance of taking her prescribed medications for outpatient treatment when she was discharged yesterday. She then got very upset with me and told me that if I discharge her tonight she will call the ambulance and come right back to the ED. I went in and talked with Dr. Faria about patient case and he is going to take over care of patient. Vital Signs: Vital signs: Vital Signs Temperature 98.1 F 09/30/21 18:47 Pulse Rate 97 09/30/21 23:46 Respiratory Rate 19 H 09/30/21 22:57 Blood Pressure 122/47 09/30/21 23:00 Pulse Oximetry 100 09/30/21 23:46 MDM - Abdominal Pain Lab Data: Attestation: I reviewed the patient's lab results. Labs: Lab Results 09/30/21 09/30/21 09/30/21 18:46 19:04 19:04 WBC 7.0 10^3/uL 10^3/ uL (4.0-10.0) RBC 4.32 10^6/uL 10^6 /uL (4.1-5.3) Hgb 13.3 g/dL g/dL (11.5-15.3) Hct 38.1 % % (37.0-47.0) MCV 88.2 fl fl (81-99) MCH 30.8 pg pg (28.0-34.0) MCHC 34.9 g/dL g/dL (30.0-36.0) RDW 12.2 % % (12.1-15.1) Plt Count 329 10^3/cmm 10^3 /cmm (130-400) MPV 10.5 fL H fL (7.4-10.4) Neut % (Auto) 42.2 % % Lymph % (Auto) 45.9 % % [place] % (Auto) 5.0 % % Eos % (Auto) 5.6 % % Baso % (Auto) 1.2 % % Neut # (Auto) 2.93 10^3/uL 10^3 /uL (1.8-7.7) Lymph # (Auto) 3.2 10^3/uL 10^3/ uL (0.8-4.8) [place] # (Auto) 0.4 10^3/uL 10^3/ uL (0.2-0.9) Eos # (Auto) 0.4 10^3/uL 10^3/ uL (0.0-0.8) Baso # (Auto) 0.1 10^3/uL 10^3/ uL (0.0-0.1) Nucleated RBC % (a uto) 0 % % Nucleated RBCs # 0.0 /100WBC /100W BC Sodium 141 mmol/L mmol/L (136-145) Potassium 4.2 mmol/L mmol/L (3.5-5.1) Chloride 109 mmol/L H mmol /L (98-107) Carbon Dioxide 24 mmol/L mmol/L (22-29) Anion Gap 12.2 (5-19) BUN 11 mg/dL mg/dL (6-20) Creatinine 0.7 mg/dL mg/dL (0.5-0.9) GFR Calculation 95.8 mL/min mL/mi n (90-130) Glucose 110 mg/dL mg/dL (65-115) Calculated Osmolal ity 292 mOsm/kg mOsm/ kg (285-295) Calcium 8.4 mg/dL L mg/dL (8.5-10.5) Total Bilirubin 0.4 mg/dL mg/dL (0.15-1.2) AST 14 U/L U/L (0-32) ALT 7 U/L U/L (0-33) Alkaline Phosphata se 49 IU/L IU/L (35-105) Total Protein 5.7 g/dL L g/dL (6.6-8.7) Albumin 3.5 g/dL g/dL (3.5-5.2) Globulin 2.2 g/dL g/dL (1.3-4.6) Lipase 18 U/L U/L (13-60) HCG, Qual Urine Color Yellow (Yellow) Urine Appearance Sl hazy (CLEAR) Urine pH 7 (5-7) Ur Specific Gravit y 1.000 L (1.005-1.030) Urine Protein Neg (Negative) Urine Glucose (UA) Norm (Normal) Urine Ketones Negative (Negative) Urine Blood 3+ H (Negative) Urine Nitrate Negative (Negative) Urine Bilirubin Neg (Negative) Urine Urobilinogen Norm mg/dL mg/dL (Negative) Ur Leukocyte Sharita ase 2+ H (Negative) Urine RBC None /hpf /hpf (0-2) Urine WBC 15-25 /hpf H /hpf (0-5) Ur Squamous Epith Cells 0-4 /hpf H /hpf (0-5) Amorphous Sediment Not Reportable Urine Bacteria 2+ /hpf H /hpf (NONE) 09/30/21 19:04 WBC RBC Hgb Hct MCV MCH MCHC RDW Plt Count MPV Neut % (Auto) Lymph % (Auto) [place] % (Auto) Eos % (Auto) Baso % (Auto) Neut # (Auto) Lymph # (Auto) [place] # (Auto) Eos # (Auto) Baso # (Auto) Nucleated RBC % (a uto) Nucleated RBCs # Sodium Potassium Chloride Carbon Dioxide Anion Gap BUN Creatinine GFR Calculation Glucose Calculated Osmolal ity Calcium Total Bilirubin AST ALT Alkaline Phosphata se Total Protein Albumin Globulin Lipase HCG, Qual Negative (Negative) Urine Color Urine Appearance Urine pH Ur Specific Gravit y Urine Protein Urine Glucose (UA) Urine Ketones Urine Blood Urine Nitrate Urine Bilirubin Urine Urobilinogen Ur Leukocyte Sharita ase Urine RBC Urine WBC Ur Squamous Epith Cells Amorphous Sediment Urine Bacteria Discharge Plan Discharge Patient Disposition: Home Clinical Impression: Nausea & vomiting, Pelvic pain Condition: Stable Prescriptions: New Zofran 4 mg tablet 4 mg PO TID PRN (Reason: nausea and vomiting) 4 Days Qty: 12 RF: 0 No Action fluticasone propionate [Allergy Relief (fluticasone)] 50 mcg/actuation spray,suspension 2 spray intranasal DAILY RF: 0 prednisone 20 mg tablet 20 mg PO DAILY RF: 0 amoxicillin-pot clavulanate 875-125 mg tablet 1 tab PO BID RF: 0 albuterol sulfate [ProAir HFA] 90 mcg/actuation HFA aerosol inhaler 2 puff inhalation Q6H PRNRF: 0 doxycycline hyclate 100 mg tablet 100 mg PO BID 14 Days Qty: 28 RF: 0 Flagyl 500 mg tablet 500 mg PO Q8H 7 Days Qty: 21 RF: 0 hydrocodone-acetaminophen 5-325 mg tablet 1 tab PO Q6H PRN (Reason: pain) Qty: 14 RF: 0 ondansetron 4 mg tablet,disintegrating 4 mg PO Q6H PRN (Reason: nausea and vomiting) Qty: 14 RF: 0 Discharge Orders: Discharge ED (Routine); Ordered 09/30/21 Ordered By: Jose Faria Referrals: Reuben Mccain DO [Primary Care Provider] - Discharge Diet: Advance as tolerated Discharge Activity: Resume usual activity Patient Instructions: Pelvic Pain (ED) Activity Restrictions/Additional Instructions: Please come back to the emergency room if having worsening pain, fever/chills, unable to eat or drink, have any new or concerning complaints. Stand Alone Forms: Work/School Release Coding Level of Care Code ED Therapy Tech for Chg Fwd Exam Comprehensive Documented by User: Jose Faria MD 10/01/21 05:22 HPI - Abdominal Pain General: Chief Complaint: Abdominal Pain Stated Complaint: ABD PAIN Time Seen by Provider: 09/30/21 18:34 PFSH ED PFSH: Family History Other Diabetes Social History Current gender identity: Female Course Vital Signs: Vital signs: Vital Signs Temperature 98.1 F 09/30/21 18:47 Pulse Rate 97 09/30/21 23:46 Respiratory Rate 19 H 09/30/21 22:57 Blood Pressure 122/47 09/30/21 23:00 Pulse Oximetry 100 09/30/21 23:46 MDM - Abdominal Pain MDM Narrative: Medical decision making narrative: 35-year-old female presents emergency room with right-sided pelvic pain, nausea/vomiting. Patient tolerated p.o. in the emergency room after multiple doses of Zofran. Patient has normal white count. It is unclear what is the source the pelvic fluid. Patient has a prescription for doxycycline and metronidazole for she has not filled out. Patient received her first dose of both antibiotics today. I have reassured patient that she does not have appendicitis at this time. Patient reports pain symptomatically improved after pain medicine. She would like to go home at this time with close follow-up with [employer] provider. Rx zofran PRN nausea Disposition: Discharge. Patient counseled regarding diagnostic impression, treatment plan. Patient given ED strict return precautions to return for continuation, worsening, or development of new symptoms. Instructed to f/u w/ PCP and [employer] regarding symptoms today. Patient verbalized understanding. Lab Data: Labs: Lab Results 09/30/21 09/30/21 09/30/21 18:46 19:04 19:04 WBC 7.0 10^3/uL 10^3/ uL (4.0-10.0) RBC 4.32 10^6/uL 10^6 /uL (4.1-5.3) Hgb 13.3 g/dL g/dL (11.5-15.3) Hct 38.1 % % (37.0-47.0) MCV 88.2 fl fl (81-99) MCH 30.8 pg pg (28.0-34.0) MCHC 34.9 g/dL g/dL (30.0-36.0) RDW 12.2 % % (12.1-15.1) Plt Count 329 10^3/cmm 10^3 /cmm (130-400) MPV 10.5 fL H fL (7.4-10.4) Neut % (Auto) 42.2 % % Lymph % (Auto) 45.9 % % [place] % (Auto) 5.0 % % Eos % (Auto) 5.6 % % Baso % (Auto) 1.2 % % Neut # (Auto) 2.93 10^3/uL 10^3 /uL (1.8-7.7) Lymph # (Auto) 3.2 10^3/uL 10^3/ uL (0.8-4.8) [place] # (Auto) 0.4 10^3/uL 10^3/ uL (0.2-0.9) Eos # (Auto) 0.4 10^3/uL 10^3/ uL (0.0-0.8) Baso # (Auto) 0.1 10^3/uL 10^3/ uL (0.0-0.1) Nucleated RBC % (a uto) 0 % % Nucleated RBCs # 0.0 /100WBC /100W BC Sodium 141 mmol/L mmol/L (136-145) Potassium 4.2 mmol/L mmol/L (3.5-5.1) Chloride 109 mmol/L H mmol /L (98-107) Carbon Dioxide 24 mmol/L mmol/L (22-29) Anion Gap 12.2 (5-19) BUN 11 mg/dL mg/dL (6-20) Creatinine 0.7 mg/dL mg/dL (0.5-0.9) GFR Calculation 95.8 mL/min mL/mi n (90-130) Glucose 110 mg/dL mg/dL (65-115) Calculated Osmolal ity 292 mOsm/kg mOsm/ kg (285-295) Calcium 8.4 mg/dL L mg/dL (8.5-10.5) Total Bilirubin 0.4 mg/dL mg/dL (0.15-1.2) AST 14 U/L U/L (0-32) ALT 7 U/L U/L (0-33) Alkaline Phosphata se 49 IU/L IU/L (35-105) Total Protein 5.7 g/dL L g/dL (6.6-8.7) Albumin 3.5 g/dL g/dL (3.5-5.2) Globulin 2.2 g/dL g/dL (1.3-4.6) Lipase 18 U/L U/L (13-60) HCG, Qual Urine Color Yellow (Yellow) Urine Appearance Sl hazy (CLEAR) Urine pH 7 (5-7) Ur Specific Gravit y 1.000 L (1.005-1.030) Urine Protein Neg (Negative) Urine Glucose (UA) Norm (Normal) Urine Ketones Negative (Negative) Urine Blood 3+ H (Negative) Urine Nitrate Negative (Negative) Urine Bilirubin Neg (Negative) Urine Urobilinogen Norm mg/dL mg/dL (Negative) Ur Leukocyte Sharita ase 2+ H (Negative) Urine RBC None /hpf /hpf (0-2) Urine WBC 15-25 /hpf H /hpf (0-5) Ur Squamous Epith Cells 0-4 /hpf H /hpf (0-5) Amorphous Sediment Not Reportable Urine Bacteria 2+ /hpf H /hpf (NONE) 09/30/21 19:04 WBC RBC Hgb Hct MCV MCH MCHC RDW Plt Count MPV Neut % (Auto) Lymph % (Auto) [place] % (Auto) Eos % (Auto) Baso % (Auto) Neut # (Auto) Lymph # (Auto) [place] # (Auto) Eos # (Auto) Baso # (Auto) Nucleated RBC % (a uto) Nucleated RBCs # Sodium Potassium Chloride Carbon Dioxide Anion Gap BUN Creatinine GFR Calculation Glucose Calculated Osmolal ity Calcium Total Bilirubin AST ALT Alkaline Phosphata se Total Protein Albumin Globulin Lipase HCG, Qual Negative (Negative) Urine Color Urine Appearance Urine pH Ur Specific Gravit y Urine Protein Urine Glucose (UA) Urine Ketones Urine Blood Urine Nitrate Urine Bilirubin Urine Urobilinogen Ur Leukocyte Sharita ase Urine RBC Urine WBC Ur Squamous Epith Cells Amorphous Sediment Urine Bacteria Discharge Plan Discharge Patient Disposition: Home Clinical Impression: Nausea & vomiting, Pelvic pain Condition: Stable Prescriptions: New Zofran 4 mg tablet 4 mg PO TID PRN (Reason: nausea and vomiting) 4 Days Qty: 12 RF: 0 No Action fluticasone propionate [Allergy Relief (fluticasone)] 50 mcg/actuation spray,suspension 2 spray intranasal DAILY RF: 0 prednisone 20 mg tablet 20 mg PO DAILY RF: 0 amoxicillin-pot clavulanate 875-125 mg tablet 1 tab PO BID RF: 0 albuterol sulfate [ProAir HFA] 90 mcg/actuation HFA aerosol inhaler 2 puff inhalation Q6H PRNRF: 0 doxycycline hyclate 100 mg tablet 100 mg PO BID 14 Days Qty: 28 RF: 0 Flagyl 500 mg tablet 500 mg PO Q8H 7 Days Qty: 21 RF: 0 hydrocodone-acetaminophen 5-325 mg tablet 1 tab PO Q6H PRN (Reason: pain) Qty: 14 RF: 0 ondansetron 4 mg tablet,disintegrating 4 mg PO Q6H PRN (Reason: nausea and vomiting) Qty: 14 RF: 0 Discharge Orders: Discharge ED (Routine); Ordered 09/30/21 Ordered By: Jose Faria Referrals: Reuben Mccain, [Primary Care Provider] - Discharge Diet: Advance as tolerated Discharge Activity: Resume usual activity Patient Instructions: Pelvic Pain (ED) Activity Restrictions/Additional Instructions: Please come back to the emergency room if having worsening pain, fever/chills, unable to eat or drink, have any new or concerning complaints. Stand Alone Forms: Work/School Release Coding Level of Care Code ED Therapy Tech for Chg Fwd Exam Comprehensive
[2021-09-30 19:05] LABS: Add Urine Microscopic? YES; Bilirubin Urine Neg (Negative); Blood Urine 3+ (Negative); Glucose Urine UA Norm (Normal); Ketones Urine Negative (Negative); Leukocyte Esterase Urine 2+ (Negative); Nitrate Urine Negative (Negative); Protein Urine Neg (Negative); Urine Appearance SL Hazy (CLEAR); Urine Color Yellow (Yellow); Urobilinogen Urine Norm (Negative); pH Urine 7 (5-7)
[2021-09-30] MEDS: sodium chloride 0.9% 1,000 ML 999 ML IV ×3 (19:05→22:24)
[2021-09-30 19:07] LABS: Add Urine Culture? Yes; Bacteria Urine 2+ /hpf; Squamous Epithelial Cell Urine 0-4 /hpf (0-5); WBC Urine 15-25 /hpf (0-5)
[2021-09-30] MEDS: ondansetron 2 mg/ML SDV 2 mL 4 MG IVP ×3 (19:10→22:56)
[2021-09-30] MEDS: morphine 4 mg/mL SDV 1 mL IVP (19:12)
[2021-09-30 19:14] LABS: Basophils # 0.1 10^3/uL (0.0-0.1); Basophils % 1.2 %; Eosinophils # 0.4 10^3/uL (0.0-0.8); Eosinophils % 5.6 %; Hematocrit 38.1 % (37.0-47.0); Hemoglobin 13.3 g/dL (11.5-15.3); Lymphocytes # 3.2 10^3/uL (0.8-4.8); Lymphocytes % 45.9 %; Mean Corpuscular HGB Conc 34.9 g/dL (30.0-36.0); Mean Corpuscular Hemoglobin 30.8 pg (28.0-34.0); Mean Corpuscular Volume 88.2 fl (81-99); Mean Platelet Volume 10.5 fL (7.4-10.4); Monocytes # 0.4 10^3/uL (0.2-0.9); Neutrophils # 2.93 10^3/uL (1.8-7.7); Neutrophils % 42.2 %; Nucleated Red Blood Cells % 0 %; Platelet Count 329 10^3/cmm (130-400); Red Blood Count 4.32 10^6/uL (4.1-5.3); Red Cell Distribution Width 12.2 % (12.1-15.1)
[2021-09-30 19:33] LABS: HCG, Serum Qual Negative (Negative)
[2021-09-30 19:38] LABS: Alanine Aminotransferase 7 U/L (0-33); Albumin Level 3.5 g/dL (3.5-5.2); Alkaline Phosphatase 49 IU/L (35-105); Blood Urea Nitrogen 11 mg/dL (6-20); Calcium 8.4 mg/dL (8.5-10.5); Carbon Dioxide 24 mmol/L (22-29); Chloride 109 mmol/L (98-107); Globulin 2.2 g/dL (1.3-4.6); Glomerular Filtration Rate 95.8 mL/min (90-130); Glucose 110 mg/dL (65-115); Lipase 18 U/L (13-60); Osmolality Calculated 292 mOsm/kg (285-295); Sodium 141 mmol/L (136-145); Total Bilirubin 0.4 mg/dL (0.15-1.2); Total Protein 5.7 g/dL (6.6-8.7)
[2021-09-30 19:39] LABS: Anion Gap 12.2 (5-19); Aspartate Amino Transferase 14 U/L (0-32); Potassium 4.2 mmol/L (3.5-5.1)
[2021-09-30] MEDS: HYDROcodone-acetaminophen 7.5-325 mg Tablet 1 TAB PO (20:16)
--- NOTE | 2021-09-30 20:17 | PC.NURSE ---
AT APPROXIMATELY 2009, NURSE CALLED TO PATIENT ROOM. PATIENT STATES IV IS BURNING. NURSE REMOVED IV. PATIENT STATES THAT SHE IS IN PAIN AND WOULD LIKE MORE PAIN MEDS. PROVIDER NOTIFIED. THIS NURSE RETURNS WITH PAIN MEDICATION AND PATIENT STATES THAT IF YOU SEND ME HOME, I WILL GO HOME, CALL EMS, AND COME RIGHT BACK. I'M IN PAIN. PROVIDER NOTIFIED. AT 2019, NURSE WAS CALLED TO PATIENT ROOM. PATIENT NO LONGER WANTS TO SPEAK WITH MERISSA. SHE WANTS TO SPEAK TO A PHYSICIAN. PROVIDER NOTIFIED.
[2021-09-30] MEDS: LORazepam 2 mg/mL INJ 1 mL IVP (21:23)
[2021-09-30] MEDS: diphenhydrAMINE 50 mg/mL SDV 1mL IVP (22:55)
--- NOTE | 2021-09-30 23:01 | PC.NURSE ---
pt very 'jittery' at time this nurse took over. pt refuses to keep blood pressure cuff on her arm other than when I am standing in room.
[2021-09-30] MEDS: metroNIDAZOLE 500 MG Tablet PO (23:41)
[2021-09-30] MEDS: doxycycline 100 mg Tablet PO (23:41)
[2021-09-30] MEDS: ondansetron 4 MG Tablet 2 MG PO (23:41)
== END 2021-09-30 23:51 | disposition home or self-care (01) ==
PROVIDERS: Physician Assistant; Emergency Provider Emergency Medicine; PCP Family Medicine
DX: R10.2 Pelvic and perineal pain (principal); R11.2 Nausea with vomiting, unspecified
CPT/HCPCS: 80053; 81001; 83690; 84703; 85025; 87077; 87086; 96361; 96374; 96375; 96376; 99284; J1200; J2060; J2270; J2405; J7030; Q0162

== ENCOUNTER → 2021-10-05 16:21 | Outpatient (BNVA) | payer BC, MEDICAID, SELFPAY | PROVIDERS: PCP Family Medicine; Visit Provider Obstetrics & Gynecology | DX: N89.8 Other specified noninflammatory disorders of vagina (principal); N73.9 Female pelvic inflammatory disease, unspecified; R10.2 Pelvic and perineal pain; Z98.51 Tubal ligation status; N73.0 Acute parametritis and pelvic cellulitis | CPT/HCPCS: 87491; 87591; 87661 ==

== ENCOUNTER 2022-01-27 16:59 | Emergency (ER) | payer BC, MEDICAID, SELFPAY ==
[2022-01-27] VITALS (7 sets, daily range): BP systolic 100–117; BP diastolic 64–89; PULSE 68–89; RESP 14–20; TEMP 37; O2SAT 96–100
--- NOTE | 2022-01-27 17:12 | XRR_ITS ---
PROCEDURE INFORMATION: Exam: XR Chest Exam date and time: 01/27/2022 4:28 PM Age: 36 years old Clinical indication: Other: AMS; Additional info: Altered mental status TECHNIQUE: Imaging protocol: XR of the chest. Views: 1 view. COMPARISON: CR Chest 1 [place] [id number] 03/10/2015 1:44 PM FINDINGS: Lungs: Unremarkable. No consolidation. Pleural spaces: Unremarkable. No pleural effusion. No pneumothorax. Heart/Mediastinum: Unremarkable. No cardiomegaly. Bones/joints: Unremarkable. XR/XR chest 1V portable [id number] IMPRESSION: No acute findings.
--- NOTE | 2022-01-27 17:30 | W.ED.SEIZURE ---
HPI - Seizure General: Chief Complaint: Seizure Stated Complaint: DIZZINESS/ POST SEIZURE Time Seen by Provider: 01/27/22 17:01 History of Present Illness: HPI Narrative: 36-year-old female presents to emergency department chief complaint of I feel like I am going to have a seizure patient is quite well-known to our facility. Is been here in the past for same like symptoms. Per her medical record history of drug and alcohol abuse. Patient reports that she has a history of chronic seizure disorder however she is on no seizure medication nor does she see a neurologist. Patient reports no recent trauma nor injury or any other associated symptoms, will do medical screening examination and treat as needed. Associated symptoms: Deny chest pain, chills, fever(s) or malaise Review of Systems General: Reports: 10 or more systems reviewed and unremarkable except in HPI and below Const: Denies: fever(s), chills, fatigue or malaise Eyes: Denies: change in vision or blurry vision Card: Denies: chest pain or palpitations Resp: Denies: dyspnea or productive cough GI: Denies: abdominal pain, nausea or vomiting : Denies: flank pain Musc: Denies: extremity pain or extremity swelling Skin/Breast: Denies: rash or pruritus Neuro: Denies: headache(s) Psych: Denies: anxiety or depression Grady/Lymph: Denies: easy bleeding All/Imm: Denies: urticaria, throat swelling or facial swelling PFSH ED PFSH: Family History Daughter Diabetes Mother Hypertension Grandfather No problems noted. Grandmother Breast cancer 70's Denies family history of Colon cancer Ovarian cancer Clotting disorder Heart disease Hyperlipidemia Anesthesia complication Bleeding disorder Uterine cancer Thyroid condition Stroke Social History Smoking and tobacco status: current every day smoker cigarettes Packs smoked per day: 0.5 Alcohol intake: never Current gender identity: Female Physical Exam Narrative: EXAM NARRATIVE: Appears somewhat anxious on exam with involuntary muscle twitches of the face appreciate otherwise unremarkable Const: COMMON NORMALS: no acute distress, patient oriented x3 and healthy appearing HENMT: COMMON NORMALS: normocephalic and atraumatic HEAD & SCALP: normocephalic and atraumatic Eye: COMMON NORMALS: Equal, round and reactive pupils present and EOMs intact bilaterally PUPIL: Yes Equal, round and reactive pupils present Neck/C-Spine: COMMON NORMALS: full ROM, supple and no JVD Lymph: LYMPHATIC: no lymphadenopathy noted Chest: COMMONS NORMALS: normal inspection of the chest and normal palpation of entire chest wall Resp: COMMON NORMALS: normal respiratory effort, No retractions and clear to auscultation bilaterally EFFORT & INSPECTION: Yes able to speak in complete sentences and Yes symmetric chest movement AUSCULTATION: clear to auscultation bilaterally Cardio: COMMON NORMALS: no JVD, regular rate and regular rhythm RATE: regular rate RHYTHM: regular rhythm GI: COMMON NORMALS: Normal to inspection, nondistended, normoactive bowel sounds present, Soft to palpation and non-tender INSPECTION: Yes normal to inspection PALPATION: Yes Soft to palpation : COMMON NORMALS: Yes no CVA tenderness BLADDER/KIDNEY EXAM: Yes no CVA tenderness Back/Pelvis: COMMON NORMALS: no CVA tenderness Extremity: COMMON NORMALS: normal to inspection and full ROM Neuro: COMMON NORMALS: patient oriented x3, CN's II-XII intact bilaterally, moves all extremities and no focal motor deficits Psych: COMMON NORMALS: mental status grossly normal, Normal thought process present, cooperative and normal affect THOUGHT PROCESS: Normal thought process present Skin: COMMON NORMALS: no rashes or lesions noted GENERAL SKIN EXAM: no rashes or lesions noted Course Vital Signs: Vital signs: Vital Signs Temperature 98.6 F 01/27/22 17:02 Respiratory Rate 14 01/27/22 17:02 Blood Pressure 117/89 01/27/22 17:02 Pulse Oximetry 98 01/27/22 17:02 MDM - Seizure MDM Narrative Medical decision making narrative: Due to the patient's symptoms and condition basic lab work and imaging will be obtained we will continue to follow. Discharge Plan Discharge Condition: Stable Prescriptions: No Action fluticasone propionate [Allergy Relief (fluticasone)] 50 mcg/actuation spray,suspension 2 spray intranasal DAILY 0RF Rx Instructions: administer into each nostril prednisone 20 mg tablet 20 mg PO DAILY 0RF albuterol sulfate [ProAir HFA] 90 mcg/actuation HFA aerosol inhaler 2 puff inhalation Q6H PRN0RF hydrocodone-acetaminophen 5-325 mg tablet 1 tab PO Q6H PRN (Reason: pain) Qty: 14 0RF ondansetron 4 mg tablet,disintegrating 4 mg PO Q6H PRN (Reason: nausea and vomiting) Qty: 14 0RF Referrals: Reuben Mccain DO [Primary Care Provider] - Coding Level of Care Code ED Building Maintenance Worker for Bandar Hicks
[2022-01-27] MEDS: sodium chloride 0.9% 1,000 ML 999 ML IV (18:04)
--- NOTE | 2022-01-27 18:17 | PC.NURSE ---
pt states she hasn't had a seizure, pt states she is just starting to feel like she had before when she had her last seizure a few years ago
[2022-01-27 18:20] LABS: Basophils # 0.1 10^3/uL (0.0-0.1); Basophils % 1.1 %; Eosinophils # 0.6 10^3/uL (0.0-0.8); Eosinophils % 6.8 %; Hematocrit 43.8 % (37.0-47.0); Hemoglobin 14.9 g/dL (11.5-15.3); Lymphocytes # 3.2 10^3/uL (0.8-4.8); Lymphocytes % 37.8 %; Mean Corpuscular Hemoglobin 30.4 pg (28.0-34.0); Mean Corpuscular Volume 89.4 fl (81-99); Mean Platelet Volume 10.2 fL (7.4-10.4); Monocytes # 0.5 10^3/uL (0.2-0.9); Monocytes % 6.1 %; Neutrophils # 4.05 10^3/uL (1.8-7.7); Neutrophils % 48.1 %; Nucleated Red Blood Cells % 0 %; Platelet Count 453 10^3/cmm (130-400); Red Cell Distribution Width 12.6 % (12.1-15.1); White Blood Count 8.4 10^3/uL (4.0-10.0)
--- NOTE | 2022-01-27 18:20 | W.ED.SEIZURE ---
HPI - Seizure General: Chief Complaint: Seizure Stated Complaint: DIZZINESS/ POST SEIZURE Time Seen by Provider: 01/27/22 17:01 History of Present Illness: Seizure History: Yes (pt states she hasn't had one in years) PFSH ED PFSH: Family History Daughter Diabetes Mother Hypertension Grandfather No problems noted. Grandmother Breast cancer 70's Denies family history of Colon cancer Ovarian cancer Clotting disorder Heart disease Hyperlipidemia Anesthesia complication Bleeding disorder Uterine cancer Thyroid condition Stroke Social History Smoking and tobacco status: current every day smoker cigarettes Packs smoked per day: 0.5 Alcohol intake: never Current gender identity: Female Course Vital Signs: Vital signs: Vital Signs Temperature 98.6 F 01/27/22 17:02 Respiratory Rate 20 H 01/27/22 18:08 Blood Pressure 108/83 01/27/22 18:08 Pulse Oximetry 100 01/27/22 18:08 MDM - Seizure Lab Data Result diagrams: 01/27/22 17:53 01/27/22 17:53 Discharge Plan Discharge Condition: Stable Prescriptions: No Action fluticasone propionate [Allergy Relief (fluticasone)] 50 mcg/actuation spray,suspension 2 spray intranasal DAILY 0RF Rx Instructions: administer into each nostril prednisone 20 mg tablet 20 mg PO DAILY 0RF albuterol sulfate [ProAir HFA] 90 mcg/actuation HFA aerosol inhaler 2 puff inhalation Q6H PRN0RF hydrocodone-acetaminophen 5-325 mg tablet 1 tab PO Q6H PRN (Reason: pain) Qty: 14 0RF ondansetron 4 mg tablet,disintegrating 4 mg PO Q6H PRN (Reason: nausea and vomiting) Qty: 14 0RF Referrals: Reuben Mccain DO [Primary Care Provider] - Sign Out Sign Out Data: Patient Sign Out occurred on 01/27/22 at 18:15. Patient's care was discussed, and care was transferred from to Jeffery Benoit MD. Coding Level of Care Code ED Resizer Operator for Bandar Hicks
[2022-01-27 19:08] LABS: Alanine Aminotransferase 16 U/L (0-33); Albumin Level 4.4 g/dL (3.5-5.2); Alkaline Phosphatase 60 IU/L (35-105); Blood Urea Nitrogen 17 mg/dL (6-20); Calcium 9.2 mg/dL (8.5-10.5); Carbon Dioxide 22 mmol/L (22-29); Chloride 104 mmol/L (98-107); Creatine Phosphokinase 131 U/L (26-192); Glomerular Filtration Rate 95.2 mL/min (90-130); Glucose 108 mg/dL (65-115); Lipase 19 U/L (13-60); Osmolality Calculated 290 mOsm/kg (285-295); Sodium 139 mmol/L (136-145); Total Bilirubin 0.8 mg/dL (0.15-1.2); Total Protein 7.4 g/dL (6.6-8.7)
[2022-01-27 19:13] LABS: Alcohol Level < 10 mg/dL (0-10); Anion Gap 16.6 (5-19); Aspartate Amino Transferase 21 U/L (0-32); Potassium 3.6 mmol/L (3.5-5.1)
[2022-01-27 19:16] LABS: Thyroid Stimulating Hormone 0.79 uIU/mL (0.27-4.20)
[2022-01-27 19:57] LABS: HCG Qualitative Urine. Negative (Negative)
[2022-01-27 20:23] LABS: Amphetamines Screen Urine Positive (Negative); Barbiturates Screen Urine Negative (Negative); Benzodiazepines Screen Urine Negative (Negative); Cocaine Screen Urine Negative (Negative); Opiate Screen Urine Negative (Negative); PCP Screen Urine Negative (Negative); THC Screen Urine Negative (Negative); Urine Appearance Hazy (CLEAR); Urine Color Yellow (Yellow)
[2022-01-27 20:24] LABS: Add Urine Microscopic? YES; Bilirubin Urine Neg (Negative); Blood Urine Neg (Negative); Glucose Urine UA Norm (Normal); Ketones Urine Negative (Negative); Leukocyte Esterase Urine Negative (Negative); Mucus Urine 1+ /hpf; Nitrate Urine Negative (Negative); Protein Urine Neg (Negative); Urobilinogen Urine Neg (Negative); pH Urine 5 (5-7)
== END 2022-01-27 22:09 | disposition home or self-care (01) ==
PROVIDERS: Emergency Medicine; Emergency Provider Emergency Medicine; PCP Family Medicine
DX: R56.9 Unspecified convulsions (principal); F17.210 Nicotine dependence, cigarettes, uncomplicated
CPT/HCPCS: 71045; 80053; 80306; 80307; 81001; 81025; 82550; 83690; 84443; 85025; 96360; 99284; J7030

== ENCOUNTER 2022-02-25 19:42 | Inpatient (IN) | payer BC, SELFPAY ==
[2022-02-25 19:46] VITALS: BP 121/85; PULSE 97; RESP 18; TEMP 36.1; O2SAT 98; BMI 21.4
--- NOTE | 2022-02-25 19:54 | ED.C_ITS ---
HPI - Psych General: Chief Complaint: Psychiatric Symptoms Stated Complaint: si Time Seen by Provider: 02/25/22 19:51 History of Present Illness: 36-year-old presents with suicidal ideation. She denies any previous attempts to hurt herself. She does not have a concrete plan. Denies any hallucinations or delusions. Denies any desire to hurt anyone else. Denies any illicit substance use. Review of Systems Narrative: - CONSTITUTIONAL: Denies weight loss, fever and chills. - HEENT: Denies changes in vision and hearing. - RESPIRATORY: Denies SOB and cough. - CV: Denies palpitations and CP. - GI: Denies abdominal pain, nausea, vomiting and diarrhea. - : Denies dysuria and urinary frequency. - MSK: Denies myalgia and joint pain. - SKIN: Denies rash and pruritus. - NEUROLOGICAL: Denies headache, weakness, numbness and syncope. - PSYCHIATRIC: As above PFS ED PFSH: Family History Daughter Diabetes Mother Hypertension Grandfather No problems noted. Grandmother Breast cancer 70's Denies family history of Colon cancer Ovarian cancer Clotting disorder Heart disease Hyperlipidemia Anesthesia complication Bleeding disorder Uterine cancer Thyroid condition Stroke Social History Smoking and tobacco status: current every day smoker cigarettes Packs smoked per day: 0.5 Alcohol intake: never Current gender identity: Female Female Reproductive History: Date of last menstrual period: 02/20/22 Physical Exam Narrative: EXAM NARRATIVE: - GENERAL: Alert and oriented x 3. No acute distress. Well-nourished. - EYES: EOMI. Anicteric. - HENT: Atraumatic, no C-spine tenderness. Moist mucous membranes. No scleral icterus. No cervical lymphadenopathy. - LUNGS: Clear to auscultation bilaterally. No accessory muscle use. Equal lung sounds bilaterally. No respiratory distress. - CARDIOVASCULAR: Regular rate and rhythm. No murmur. No JVD. - ABDOMEN: Soft, non-tender and non-distended. Negative CVA tenderness bilaterally, no rebound or guarding, negative Sal sign. No palpable masses. - EXTREMITIES: No edema. Non-tender. - SKIN: No rashes or lesions. Warm. - NEUROLOGIC: No meningismus or focal neurological deficits. CN II-XII grossly intact. - PSYCHIATRIC: Suicidal Course Vital Signs: Vital signs: Vital Signs Temperature 97.0 F L 02/25/22 19:46 Pulse Rate 97 02/25/22 19:46 Respiratory Rate 18 02/25/22 19:46 Blood Pressure 121/85 02/25/22 19:46 Pulse Oximetry 98 02/25/22 19:46 MDM - Psych Medical Decision Making 36-year-old presents with suicidal ideation. Physical exam unremarkable. Discussed with psychiatrist, Dr. Siddiqui will accept admission. Further evaluation management per psychiatry team. Patient admitted in stable condition. Lab Data : 02/25/22 19:58 02/25/22 19:58 Laboratory Results WBC 10.7 10^3/uL (4.0-10.0) H 02/25/22 19:58 RBC 4.46 10^6/uL (4.1-5.3) 02/25/22 19:58 Hgb 13.4 g/dL (11.5-15.3) 02/25/22 19:58 Hct 39.7 % (37.0-47.0) 02/25/22 19:58 MCV 89.0 fl (81-99) 02/25/22 19:58 MCH 30.0 pg (28.0-34.0) 02/25/22 19:58 MCHC 33.8 g/dL (30.0-36.0) 02/25/22 19:58 RDW 12.5 % (12.1-15.1) 02/25/22 19:58 Plt Count 401 10^3/cmm (130-400) H 02/25/22 19:58 MPV 10.0 fL (7.4-10.4) 02/25/22 19:58 Neut % (Auto) 54.1 % 02/25/22 19:58 Lymph % (Auto) 34.6 % 02/25/22 19:58 Clare % (Auto) 6.4 % 02/25/22 19:58 Eos % (Auto) 3.8 % 02/25/22 19:58 Baso % (Auto) 0.9 % 02/25/22 19:58 Neut # (Auto) 5.77 10^3/uL (1.8-7.7) 02/25/22 19:58 Lymph # (Auto) 3.7 10^3/uL (0.8-4.8) 02/25/22 19:58 Clare # (Auto) 0.7 10^3/uL (0.2-0.9) 02/25/22 19:58 Eos # (Auto) 0.4 10^3/uL (0.0-0.8) 02/25/22 19:58 Baso # (Auto) 0.1 10^3/uL (0.0-0.1) 02/25/22 19:58 Nucleated RBC % (auto) 0 % 02/25/22 19:58 Nucleated RBCs # 0.0 /100WBC 02/25/22 19:58 Discharge Plan Discharge Condition: Stable Prescriptions: No Action fluticasone propionate [Allergy Relief (fluticasone)] 50 mcg/actuation spray,suspension 2 spray intranasal DAILY 0RF Rx Instructions: administer into each nostril prednisone 20 mg tablet 20 mg PO DAILY 0RF albuterol sulfate [ProAir HFA] 90 mcg/actuation HFA aerosol inhaler 2 puff inhalation Q6H PRN0RF hydrocodone-acetaminophen 5-325 mg tablet 1 tab PO Q6H PRN (Reason: pain) Qty: 14 0RF ondansetron 4 mg tablet,disintegrating 4 mg PO Q6H PRN (Reason: nausea and vomiting) Qty: 14 0RF buspirone 10 mg tablet See Rx Instructions .ROUTE .COMPLEX Qty: 60 0RF Rx Instructions: 10 mg orally BID for 3 days then increase to 10 mg TID Referrals: Reuben Mccain DO [Primary Care Provider] - Coding Level of Care Code ED 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
[2022-02-25 20:05] LABS: Basophils # 0.1 10^3/uL (0.0-0.1); Basophils % 0.9 %; Eosinophils # 0.4 10^3/uL (0.0-0.8); Eosinophils % 3.8 %; Hematocrit 39.7 % (37.0-47.0); Hemoglobin 13.4 g/dL (11.5-15.3); Lymphocytes # 3.7 10^3/uL (0.8-4.8); Lymphocytes % 34.6 %; Mean Corpuscular HGB Conc 33.8 g/dL (30.0-36.0); Monocytes # 0.7 10^3/uL (0.2-0.9); Monocytes % 6.4 %; Neutrophils # 5.77 10^3/uL (1.8-7.7); Neutrophils % 54.1 %; Nucleated Red Blood Cells % 0 %; Platelet Count 401 10^3/cmm (130-400); Red Blood Count 4.46 10^6/uL (4.1-5.3); Red Cell Distribution Width 12.5 % (12.1-15.1); White Blood Count 10.7 10^3/uL (4.0-10.0)
[2022-02-25 20:10] VITALS: BP 118/76; PULSE 81; RESP 18; O2SAT 100
[2022-02-25 20:37] LABS: Alanine Aminotransferase 14 U/L (0-33); Albumin Level 4.5 g/dL (3.5-5.2); Alkaline Phosphatase 62 IU/L (35-105); Anion Gap 15.4 (5-19); Aspartate Amino Transferase 19 U/L (0-32); Blood Urea Nitrogen 12 mg/dL (6-20); Calcium 8.1 mg/dL (8.5-10.5); Carbon Dioxide 24 mmol/L (22-29); Chloride 103 mmol/L (98-107); Globulin 2.2 g/dL (1.3-4.6); Glomerular Filtration Rate 81.6 mL/min (90-130); Glucose 113 mg/dL (65-115); Osmolality Calculated 289 mOsm/kg (285-295); Potassium 3.4 mmol/L (3.5-5.1); Sodium 139 mmol/L (136-145); Thyroid Stimulating Hormone 1.65 uIU/mL (0.27-4.20); Total Bilirubin 0.7 mg/dL (0.15-1.2); Total Protein 6.7 g/dL (6.6-8.7)
[2022-02-25 20:38] LABS: Acetaminophen < 5.0 ug/mL (10-30); Alcohol Level < 10 mg/dL (0-10); Salicylate < 0.3 mg/dL (3-10)
[2022-02-25 21:25] VITALS: BP 118/82; PULSE 94; RESP 16; O2SAT 97
[2022-02-25] MEDS: trazodone 50 mg Tablet PO (21:59)
--- NOTE | 2022-02-25 22:13 | PC.ADMIT ---
[address] Admission Note Carmen Collins RN BSN: patient presents from ED voluntarily with SI x2 weeks, plan nonspecific. patient states she is suicidal because of life . she states her guardians are her mother and father. patient states she was admitted as a patient to [facility] last year for SI. patient denies suicide attempts in the past. patient is currently on probation, reports she used to use methamphetamine IV but reports she has been clean for a few months. she did go to a treatment center in the past and was clean for 22 months. denies AVH, [place]. denies taking any home medications, she was supposed to be taking buspirone but never filled the prescription. patient lives with her mom currently. she is calm and cooperative, affect appropriate to context. she was given trazodone 50mg PO after admission assessment to help her sleep. she reports that she has had drug induced seizures in the past. [ End ] The patient,Bernice Saenz,36 y/o, was given written information regarding hospital policies, unit procedures and contact persons. Patient's smoking status: current every day smoker. Vital Signs - 8 hr 02/25/22 19:46 02/25/22 20:10 Temperature 97.0 F L Pulse Rate 97 81 Respiratory Rate 18 18 Blood Pressure 121/85 118/76 Pulse Oximetry 98 100
--- NOTE | 2022-02-26 00:47 | PC.NURSE ---
2159- given trazodone for sleep. It was effective.
[2022-02-26 06:00] VITALS: BP 97/64; PULSE 81; RESP 16; O2SAT 97
[2022-02-26] MEDS: nicotine 2 mg Gum BUCCAL (08:20)
[2022-02-26] MEDS: OLANZapine 5 mg ODT PO (08:38)
--- NOTE | 2022-02-26 09:25 | P.NPUHP_ITS ---
Providers/Chief Complaint Admitting Physician: Fletcher Siddiqui MD Primary Care Provider: Reuben Mccain DO Chief Complaint: si HPI [facility] History of Present Illness Bernice Saenz is a 36 year old female admitted to our emergency department with the following report: 36-year-old presents with suicidal ideation.? She denies any previous attempts to hurt herself.? She does not have a concrete plan.? Denies any hallucinations or delusions.? Denies any desire to hurt anyone else.? Denies any illicit substance use. She is admitted for definitive treatment of these issues. She says that she has been having suicidal ideation for about 1 year. It was more real and intense yesterday. She decided to get help. She said that she would like some help with sleep, anxiety and to level out her hormones. She said that she was aware of her age and that the change of life is coming. She would like to take something to delay that. She refused any medication other than BuSpar when she was here last time. She said she would be willing to take an antidepressant now. She also has sweaty palms and would like something to help that. We talked about the alternatives and she decided that Paxil would be her choice. She also tried some trazodone 50 mg last night and it helped somewhat but she would like to try 100 mg. She says that she does not get much sleep. She generally takes Benadryl gnto-tsh-fidsvez 1 tablet at night. It is assumed that is 25 mg. She says that helped some but not much. She usually takes ibuprofen and aspirin along with it. She has a fair amount of anxiety. She gets very distracted and is overwhelmed when she is shopping at [email or web address]. She does not have any difficulty standing in line to pay. She used to be somewhat obsessive- compulsive but it is better now. She does have a thing about certain numbers. She was adamant that she has not used methamphetamine since she has been on prob ation. She has been tested and has been negative. She does not know exactly how long she has been on probation. She was positive for methamphetamine on the last admission but it was not tested in the emergency department yesterday. Below is the discharge summary from her last admission. 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 Qualified Code(s):? F24 - Shared psychotic disorder (3) Methamphetamine use: ?Status:?Acute (4) Depression: ?Status:?Resolved Reason for Visit MHE? Brief History: History of Present Illness Bernice Obrien is a 35 year old female who presented to the emergency department with the following report: Chief Complaint: Psychiatric Symptoms Stated Complaint: MHE Time Seen by Provider: 02/05/21 11:07 Source: police Mode of arrival: other (police) Limitations: altered mental status History of Present Illness:?? HPI Narrative: This 35-year-old female patient with a history of methamphetamine use was brought to the emergency department by police officers. She was apparently at the court house where her mother was trying to get a 96- hour psychiatric hold of this patient and while she was there the patient's started exhibiting unusual behavior according to the police officers.? She was loud, not cooperating, saying people were trying to kill her, saying everybody in the court house was trying to kill her.? The ground mixer therefore ordered them to bring her to the emergency department for psychiatric evaluation and the ground mixer is working on a 96-hour court-ordered hold. She was admitted to the neuropsychiatric unit for definitive treatment of those issues.? She required significant medication and restraints while in the emergency department.? She was finally able to be taken out of restraints and brought down to the unit where she slept well overnight secondary to medication.? This morning she remains fairly somnolent but arousable.? She essentially reports that she had resumed use after her last hospitalization here with this freelance copywriter.? She can give me no clear reason what the circumstances were that led her to be under the influence at the court house.? She is a extremely incapable historian at this point mostly making quick statements of agreement and some monosyllabic grunts and statements.? She was able to communicate having headaches and really having a rough time in her withdrawal.? Otherwise she reported that she was here to try to get better overall.? We briefly discussed the risk-benefit and alternatives of continuing her current medication and she understood and agreed proceed as is documented in this note.? Otherwise she was a very limited historical assistance.? Below please find an excerpt from her last inpatient stay for context. Hospital Course Bernice presented to the emergency department with psychosis, active addiction and concerns for lethality.? She was admitted to the neuropsychiatric unit for definitive treatment of those issues.? She very slowly acclimated to the individual, group and milieu therapies provided but certainly presented at a high level of functioning and she normally does when she comes to see us.? Normally she has profound psychosis needing antipsychotics to break the episode, however this time she was more irritable than psychotic after the first day or so leaving only the concerns for safety.? Unlike previous days she was not open to restarting her medication and she continues to be resistant/ambivalent about recovery and addiction treatment.? She showed modest improvement and was able to contract for safety prior to discharge but was resistant to active engagement in treatment.? During the hospitalization, patient had routine laboratory studies which were within normal limits except for few outliers.? Additionally there was a general medical evaluation which was also within normal limits and revealed no new acute processes. Meds [facility] Home Medications Medication Instructions Recorded Confirmed Last Taken Type albuterol sulfate 90 mcg/actuation 2 puff INHALATION Q6H PRN 04/06/21 02/25/22 Unknown History aerosol inhaler (ProAir HFA) fluticasone propionate 50 2 spray INTRANASAL DAILY 04/06/21 02/25/22 Unknown History mcg/actuation nasal spray,suspension (Allergy Relief (fluticasone)) prednisone 20 mg tablet 20 mg PO DAILY 04/06/21 02/25/22 Unknown History hydrocodone 5 mg-acetaminophen 325 1 tab PO Q6H PRN #14 tab 09/29/21 02/25/22 Unknown Rx mg tablet ondansetron 4 mg disintegrating 4 mg PO Q6H PRN #14 tab 09/29/21 02/25/22 Unknown Rx tablet buspirone 10 mg tablet See Rx Instructions .ROUTE 01/27/22 02/25/22 Unknown Rx .COMPLEX #60 tab Allergies Allergy/AdvReac Type Severity Reaction Status Date / Time hydrocodone Allergy Severe headaches Verified 02/25/22 19:50 PFSH [facility] PFSH: Family History Daughter Diabetes Mother Hypertension Grandfather No problems noted. Grandmother Breast cancer 70's Denies family history of Colon cancer Ovarian cancer Clotting disorder Heart disease Hyperlipidemia Anesthesia complication Bleeding disorder Uterine cancer Thyroid condition Stroke Social History Smoking and tobacco status: current every day smoker cigarettes Packs smoked per day: 0.5 Alcohol intake: never Current gender identity: Female Mental Status Exam MSE Comments: This is a thin 36-year-old female who appears approximately her stated age and is in no acute distress. She is pleasant and cooperative with the evaluation. However she was laying down and I was at the foot of her bed. There was almost no eye contact. I could not hear about half of what she said. psychomotor activity mildly increased. Speech is at a regular rate and rhythm, normal volume, good articulation, not pressured. Alert, oriented X3 Attention and concentration is probably normal. Memory is intact Mood is depressed. Affect is mildly dysphoric. Thought process is logical and goal-directed. Thought content: Denies auditory and visual hallucinations. No delusions or paranoia are noted. She reports chronic suicidal ideation suicidal ideation for the last year and no homicidal ideation. Fund of knowledge is probably average. Insight and judgment appear to be poor. Impulse control is poor. Vitals/I&O/Wt Last Vital Signs Temp 97.0 F L 02/25/22 19:46 Pulse 81 02/26/22 06:00 Resp 16 02/26/22 06:00 BP 97/64 02/26/22 06:00 Pulse Ox 97 02/26/22 06:00 Weight last 48 hrs Weight 54.885 kg Data [facility] : 02/25/22 19:58 02/25/22 19:58 A&P Assessment and plan (1) Methamphetamine use: Status: Acute (2) Major depressive disorder: Status: Acute (3) Anxiety: Status: Acute (4) Suicidal ideation: Status: Acute Plan This is a 36-year-old female with a past history of methamphetamine abuse which was not tested yesterday. She says that she has had suicidal ideation which was much worse than usual yesterday. Plan: 1. Continue current medication. Restart BuSpar to 10 mg 3 times daily add Paxi l 20 mg at bedtime and increase trazodone to 100 mg at bedtime 2. Continue every 15 minute checks for safety. 3. Encourage individual, group and milieu therapies. 4. Encourage sober living treatment after discharge at the highest level of care to which she is willing to commit. 5. We will monitor for safety for herself in the community prior to discharge. Involuntary Hold Information 96 Hour Hold: 96 Hour Involuntary Admission: No 96 Hour Hold Ending Date: 02/11/21 96 Hour Hold Ending Time: 11:50 Attestations [facility] Medical Necessity Statement*: Inpatient hospitalization is medically necessary and the clinically appropriate intervention at this time. We will initiate medications and make changes as indicated. She will be in the hospital for over 2 midnights. Likely length of stay 4-6 days Coding Level of Care Code Acute Field Recruiter for [facility] Fwd Diagnoses Methamphetamine use F15.10 Major depressive disorder F32.9 Anxiety F41.9 Suicidal ideation R45.857
[2022-02-26 14:00] VITALS: BP 94/55; PULSE 63; RESP 20; TEMP 36.3; O2SAT 98
[2022-02-26] MEDS: BuSPIRONE 10 mg Tablet PO ×2 (14:59→20:38)
[2022-02-26 20:06] VITALS: BP 85/48; PULSE 83; RESP 18; TEMP 36.8; O2SAT 98
[2022-02-26] MEDS: PARoxetine 20 mg Tablet PO (20:38)
[2022-02-26] MEDS: trazodone 50 mg Tablet 100 MG PO (20:39)
[2022-02-27 06:00] VITALS: BP 85/56; PULSE 88; RESP 19; TEMP 36.5; O2SAT 99
[2022-02-27] MEDS: nicotine 2 mg Gum BUCCAL (08:17)
[2022-02-27] MEDS: BuSPIRONE 10 mg Tablet PO ×3 (08:17→20:50)
--- NOTE | 2022-02-27 12:30 | P.NPUPN_ITS ---
Subjective [facility]PU Subjective: She said that she is still depressed with some suicidal ideation. She says that it is not any better. She continues to deny recent methamphetamine use. She said that the sweating palms are a little bit better but still problematic and would like to try some Inderal. She said that the trazodone 100 mg did work better for her sleep last night and would like to continue that. She does not think that she had any morning sedation. Mental Status Exam MSE Comments: This is a thin 36-year-old female who appears approximately her stated age and is in no acute distress. She is pleasant and cooperative with the evaluation. She was found sitting in the lunch room just after lunch with the other patients. She had finished. We went to her room and she got back in bed. There was almost no eye contact. psychomotor activity mildly increased. Speech is at a regular rate and rhythm, normal volume, good articulation, not pressured. Alert, oriented X3 Attention and concentration is probably normal. Memory is intact Mood is depressed. Affect is mildly dysphoric. Thought process is logical and goal-directed. Thought content: Denies auditory and visual hallucinations. No delusions or paranoia are noted. She reports chronic suicidal ideation suicidal ideation for the last year and no homicidal ideation. Fund of knowledge is probably average. Insight and judgment appear to be poor. Impulse control is poor. Cognition: Patient Appearance: Disheveled/Poor Hygiene Level of Consciousness: Awake, Alert, Appropriate and Follows Commands Ability to Follow Directions: Excellent Patient Orientation (long list): Person, Place, Time, Name, Age and Birthday Comprehension Ability: No Impairment Hallucination Type: None Delusion Description: Not Present Thought Process: Appropriate Affect: Affect Description: Calm Depressive Symptoms: Back Pain, Changes in Appetite, Difficulty Sleeping, Hopelessness, Increased Anxiety, Increased Fatigue, Loss of Energy and Loss of Interest in Activities Behavior: Patient Behavior: Cooperative and Withdrawn Speech Pattern: Clear Vitals/I&O/Wt Last Vital Signs Temp 97.7 F 02/27/22 06:00 Pulse 88 02/27/22 06:00 Resp 19 H 02/27/22 06:00 BP 85/56 02/27/22 06:00 Pulse Ox 99 02/27/22 06:00 Weight last 48 hrs Weight 54.885 kg Data [facility] : 02/25/22 19:58 02/25/22 19:58 A&P Assessment and plan (1) Methamphetamine use: Status: Acute (2) Major depressive disorder: Status: Acute (3) Anxiety: Status: Acute (4) Suicidal ideation: Status: Acute Plan This is a 36-year-old female with a past history of methamphetamine abuse which was not tested yesterday. She says that she has had suicidal ideation which was much worse than usual yesterday. Plan: 1. Continue current medication. Restart BuSpar to 10 mg 3 times daily add Paxil 20 mg at bedtime and increase trazodone to 100 mg at bedtime 2. Continue every 15 minute checks for safety. 3. Encourage individual, group and milieu therapies. 4. Encourage sober living treatment after discharge at the highest level of care to which she is willing to commit. 5. We will monitor for safety for herself in the community prior to discharge. Involuntary Hold Information 96 Hour Hold: 96 Hour Involuntary Admission: No 96 Hour Hold Ending Date: 02/11/21 96 Hour Hold Ending Time: 11:50 Attestations [facility] Medical Necessity Statement*: Inpatient hospitalization is medically necessary and the clinically appropriate intervention at this time. We will initiate medications and make changes as indicated. Coding Level of Care Code Acute Park Superintendent for [facility]ar Hicks Diagnoses Methamphetamine use F15.10 Major depressive disorder F32.9 Anxiety F41.9 Suicidal ideation R45.854
[2022-02-27 14:00] VITALS: BP 98/56; PULSE 65; RESP 20; TEMP 36.6; O2SAT 97
[2022-02-27] MEDS: propranolol 20 mg Tablet PO (17:22)
[2022-02-27] MEDS: trazodone 100 mg Tablet PO (20:50)
[2022-02-27] MEDS: PARoxetine 20 mg Tablet PO (20:50)
[2022-02-27 21:11] VITALS: RESP 17
[2022-02-28 06:00] VITALS: BP 105/67; PULSE 70; RESP 16; TEMP 36.7; O2SAT 96
[2022-02-28] MEDS: propranolol 20 mg Tablet PO ×2 (09:50→17:29)
[2022-02-28] MEDS: BuSPIRONE 10 mg Tablet PO ×3 (09:50→20:45)
--- NOTE | 2022-02-28 12:22 | W.PM.NPUPNS ---
Subjective NPU Subjective: She was found in bed at noon. She said that she felt like she had a fever and was coming down with something. She has not noticed anything from the propranolol 20 mg twice a day. She continues to be depressed and have some suicidal ideation. She is not feeling any better. Mental Status Exam MSE Comments: This is a thin 36-year-old female who appears approximately her stated age and is in no acute distress. She is pleasant and cooperative with the evaluation. She was found sitting in the lunch room just after lunch with the other patients. She had finished. We went to her room and she got back in bed. There was almost no eye contact. psychomotor activity mildly increased. Speech is at a regular rate and rhythm, normal volume, good articulation, not pressured. Alert, oriented X3 Attention and concentration is probably normal. Memory is intact Mood is depressed. Affect is mildly dysphoric. Thought process is logical and goal-directed. Thought content: Denies auditory and visual hallucinations. No delusions or paranoia are noted. She reports chronic suicidal ideation suicidal ideation for the last year and no homicidal ideation. Fund of knowledge is probably average. Insight and judgment appear to be poor. Impulse control is poor. Cognition: Patient Appearance: Disheveled/Poor Hygiene Level of Consciousness: Awake, Alert, Appropriate and Follows Commands Ability to Follow Directions: Excellent Patient Orientation (long list): Person, Place, Name, Age and Birthday Comprehension Ability: No Impairment Hallucination Type: None Delusion Description: Not Present Thought Process: Appropriate Affect: Affect Description: Flat Depressive Symptoms: Back Pain, Changes in Appetite, Difficulty Sleeping, Hopelessness, Increased Anxiety, Increased Fatigue, Loss of Energy and Loss of Interest in Activities Behavior: Patient Behavior: Resistive to Care and Withdrawn Speech Pattern: Appropriate Vitals/I&O/Wt Last Vital Signs Temp 98.0 F 02/28/22 06:00 Pulse 70 02/28/22 06:00 Resp 16 02/28/22 06:00 BP 105/67 02/28/22 06:00 Pulse Ox 96 02/28/22 06:00 Data NPU : 02/25/22 19:58 02/25/22 19:58 A&P Assessment and plan (1) Methamphetamine use: Status: Acute (2) Major depressive disorder: Status: Acute (3) Anxiety: Status: Acute (4) Suicidal ideation: Status: Acute Plan This is a 36-year-old female with a past history of methamphetamine abuse which was not tested yesterday. She says that she has had suicidal ideation which was much worse than usual yesterday. Plan: 1. Continue current medication. Restart BuSpar to 10 mg 3 times daily add Paxil 20 mg at bedtime and increase trazodone to 100 mg at bedtime. Add propranolol 20 mg twice daily. 2. Continue every 15 minute checks for safety. 3. Encourage individual, group and milieu therapies. 4. Encourage sober living treatment after discharge at the highest level of care to which she is willing to commit. 5. We will monitor for safety for herself in the community prior to discharge. Involuntary Hold Information 96 Hour Hold: 96 Hour Involuntary Admission: No 96 Hour Hold Ending Date: 02/11/21 96 Hour Hold Ending Time: 11:50 Attestations [facility] Medical Necessity Statement*: Inpatient hospitalization is medically necessary and the clinically appropriate intervention at this time. We will initiate medications and make changes as indicated. Coding Level of Care Code Acute Sexual Health Physician for Bandar Hicks Diagnoses Methamphetamine use F15.10 Major depressive disorder F32.9 Anxiety F41.9 Suicidal ideation R45.855
[2022-02-28 14:00] VITALS: BP 129/80; PULSE 68; RESP 17; TEMP 36.3; O2SAT 95
[2022-02-28] MEDS: nicotine 2 mg Gum BUCCAL (18:49)
[2022-02-28] MEDS: OLANZapine 5 mg ODT PO (19:29)
--- NOTE | 2022-02-28 19:40 | PC.NURSE ---
On assessment the patient states that she feels a seizure coming on. Zyprexa 5mg po was given for anxiety. Patient layed down in bed.
[2022-02-28 20:09] VITALS: BP 88/62; PULSE 93; RESP 17; TEMP 36.6; O2SAT 99
[2022-02-28] MEDS: PARoxetine 20 mg Tablet PO (20:45)
[2022-02-28] MEDS: trazodone 100 mg Tablet PO (20:45)
[2022-02-28 22:46] LABS: HCG Qualitative Urine. Negative (Negative)
[2022-02-28 23:40] LABS: Amphetamines Screen Urine Negative (Negative); Barbiturates Screen Urine Negative (Negative); Benzodiazepines Screen Urine Negative (Negative); Cocaine Screen Urine Negative (Negative); Opiate Screen Urine Negative (Negative); PCP Screen Urine Negative (Negative); THC Screen Urine Negative (Negative)
[2022-03-01 06:00] VITALS: RESP 18
[2022-03-01] MEDS: propranolol 20 mg Tablet PO ×2 (09:53→17:39)
[2022-03-01] MEDS: BuSPIRONE 10 mg Tablet PO ×3 (09:53→22:09)
[2022-03-01 14:00] VITALS: BP 110/61; PULSE 93; RESP 18; TEMP 36.6; O2SAT 99
--- NOTE | 2022-03-01 15:08 | P.NPUPN_ITS ---
Subjective NPU Subjective: She is still in bed almost all day. He says that she is very tired. She did not give a urine sample until today and it was negative. It is assumed that she did not give a urine sample because she knew that she would be positive for methamphetamine. She may be withdrawing from methamphetamine and that is why she is so tired. Mental Status Exam MSE Comments: This is a thin 36-year-old female who appears approximately her stated age and is in no acute distress. She is pleasant and c ooperative with the evaluation. She was found sitting in the lunch room just after lunch with the other patients. She had finished. We went to her room and she got back in bed. There was almost no eye contact. psychomotor activity mildly increased. Speech is at a regular rate and rhythm, normal volume, good articulation, not pressured. Alert, oriented X3 Attention and concentration is probably normal. Memory is intact Mood is depressed. Affect is mildly dysphoric. Thought process is logical and goal-directed. Thought content: Denies auditory and visual hallucinations. No delusions or pa ranoia are noted. Continues to report suicidal ideation suicidal ideation but no homicidal ideation. Fund of knowledge is probably average. Insight and judgment appear to be poor. Impulse control is poor. Cognition: Patient Appearance: Disheveled/Poor Hygiene Level of Consciousness: Awake, Alert, Appropriate and Follows Commands Ability to Follow Directions: Excellent Patient Orientation (long list): Person, Place, Name, Age and Birthday Comprehension Ability: No Impairment Hallucination Type: None Delusion Description: Not Present Thought Process: Appropriate Affect: Affect Description: Flat Depressive Symptoms: Back Pain, Changes in Appetite, Difficulty Sleeping, Hopelessness, Increased Anxiety, Increased Fatigue, Loss of Energy and Loss of Interest in Activities Behavior: Patient Behavior: Appropriate and Cooperative Speech Pattern: Appropriate and Clear Vitals/I&O/Wt Last Vital Signs Temp 97.8 F 03/01/22 14:00 Pulse 93 03/01/22 14:00 Resp 18 03/01/22 14:00 BP 110/61 03/01/22 14:00 Pulse Ox 99 03/01/22 14:00 Data NPU : 02/25/22 19:58 02/25/22 19:58 A&P Assessment and plan (1) Methamphetamine use: Status: Acute (2) Major depressive disorder: Status: Acute (3) Anxiety: Status: Acute (4) Suicidal ideation: Status: Acute Plan This is a 36-year-old female with a past history of methamphetamine abuse which was not tested yesterday. She says that she has had suicidal ideation which was much worse than usual yesterday. Plan: 1. Continue current medication. Restart BuSpar to 10 mg 3 times daily add Paxil 20 mg at bedtime and increase trazodone to 100 mg at bedtime. Add propranolol 20 mg twice daily. 2. Continue every 15 minute checks for safety. 3. Encourage individual, group and milieu therapies. 4. Encourage sober living treatment after discharge at the highest level of care to which she is willing to commit. 5. We will monitor for safety for herself in the community prior to discharge. Involuntary Hold Information 96 Hour Hold: 96 Hour Involuntary Admission: No 96 Hour Hold Ending Date: 02/11/21 96 Hour Hold Ending Time: 11:50 Attestations NPU Medical Necessity Statement*: Inpatient hospitalization is medically necessary and the clinically appropriate intervention at this time. We will initiate medications and make changes as indicated. Coding Level of Care Code Acute [employer] for [employer] Diagnoses Methamphetamine use F15.10 Major depressive disorder F32.9 Anxiety F41.9 Suicidal ideation R45.855
[2022-03-01 22:00] VITALS: BP 87/59; PULSE 61; RESP 16; TEMP 36.6; O2SAT 93
[2022-03-01] MEDS: trazodone 100 mg Tablet PO (22:10)
[2022-03-01] MEDS: PARoxetine 20 mg Tablet PO (22:10)
[2022-03-02 06:00] VITALS: BP 67/44; PULSE 87; RESP 16; TEMP 36.7; O2SAT 99
--- NOTE | 2022-03-02 08:51 | PC.NURSE ---
AT 0840 PT IS UP IN DAYROOM TO EAT. WHEN ASKED ABOUT HOW PT IS FEELING TODAY REGARDING MENTAL HEALTH STATES THAT IT IS TOO EARLY TO SAY BUT PROBABLY SI THOUGHTS. DENIES NAY PLAN BUT STATES JUST THOUGHTS. DOES CONTRACT FOR SAFETY AT THIS TIME. DENIES HI/AH/VH.
[2022-03-02] MEDS: BuSPIRONE 10 mg Tablet PO ×3 (08:56→21:02)
[2022-03-02] MEDS: propranolol 20 mg Tablet PO ×2 (08:56→21:02)
--- NOTE | 2022-03-02 11:57 | W.PM.NPUPNS ---
Subjective NPU Subjective: She is still in bed. She was encouraged to get up and go to group and be more active. She says that she does not feel well. She still says that she has suicidal ideations at times. Mental Status Exam MSE Comments: This is a thin 36-year-old female who appears approximately her stated age and is in no acute distress. She is pleasant and cooperative with the evaluation. She was found sitting in the lunch room just after lunch with the other patients. She had finished. We went to her room and she got back in bed. There was almost no eye contact. psychomotor activity mildly increased. Speech is at a regular rate and rhythm, normal volume, good articulation, not pressured. Alert, oriented X3 Attention and concentration is probably normal. Memory is intact Mood is depressed. Affect is mildly dysphoric. Thought process is logical and goal-directed. Thought content: Denies auditory and visual hallucinations. No delusions or paranoia are noted. Continues to report suicidal ideation suicidal ideation but no homicidal ideation. Fund of knowledge is probably average. Insight and judgment appear to be poor. Impulse control is poor. Cognition: Patient Appearance: Disheveled/Poor Hygiene Level of Consciousness: Awake, Alert, Appropriate and Follows Commands Ability to Follow Directions: Excellent Patient Orientation (long list): Person, Place, Name, Age and Birthday Comprehension Ability: No Impairment Hallucination Type: None Delusion Description: Not Present Thought Process: Appropriate Affect: Affect Description: Calm Depressive Symptoms: Back Pain, Changes in Appetite, Difficulty Sleeping, Hopelessness, Increased Anxiety, Increased Fatigue, Loss of Energy and Loss of Interest in Activities Behavior: Patient Behavior: Cooperative Speech Pattern: Clear Vitals/I&O/Wt Last Vital Signs Temp 98.0 F 03/02/22 06:00 Pulse 87 03/02/22 06:00 Resp 16 03/02/22 06:00 BP 67/44 03/02/22 06:00 Pulse Ox 99 03/02/22 06:00 Data NPU : 02/25/22 19:58 02/25/22 19:58 A&P Assessment and plan (1) Methamphetamine use: Status: Acute (2) Major depressive disorder: Status: Acute (3) Anxiety: Status: Acute (4) Suicidal ideation: Status: Acute Plan This is a 36-year-old female with a past history of methamphetamine abuse which was not tested yesterday. She says that she has had suicidal ideation which was much worse than usual yesterday. Plan: 1. Continue current medication. Restart BuSpar to 10 mg 3 times daily add Paxil 20 mg at bedtime and increase trazodone to 100 mg at bedtime. Add propranolol 20 mg twice daily. 2. Continue every 15 minute checks for safety. 3. Encourage individual, group and milieu therapies. 4. Encourage sober living treatment after discharge at the highest level of care to which she is willing to commit. 5. We will monitor for safety for herself in the community prior to discharge. Involuntary Hold Information 96 Hour Hold: 96 Hour Involuntary Admission: No 96 Hour Hold Ending Date: 02/11/21 96 Hour Hold Ending Time: 11:50 Attestations NPU Medical Necessity Statement*: Inpatient hospitalization is medically necessary and the clinically appropriate intervention at this time. We will initiate medications and make changes as indicated. 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
[2022-03-02 12:51] LABS: Add Urine Microscopic? YES; Bilirubin Urine Neg (Negative); Blood Urine 3+ (Negative); Glucose Urine UA Norm (Normal); Ketones Urine Negative (Negative); Leukocyte Esterase Urine 2+ (Negative); Nitrate Urine Negative (Negative); Protein Urine Neg (Negative); Urine Appearance Hazy (CLEAR); Urine Color Yellow (Yellow); Urobilinogen Urine Neg (Negative); pH Urine 5 (5-7)
[2022-03-02 13:13] LABS: Add Urine Culture? No; Bacteria Urine 2+ /hpf; RBC Urine 0-4 /hpf (0-2); WBC Urine 0-4 /hpf (0-5)
[2022-03-02 13:14] LABS: Amphetamines Screen Urine Negative (Negative); Barbiturates Screen Urine Negative (Negative); Benzodiazepines Screen Urine Negative (Negative); Cocaine Screen Urine Negative (Negative); Opiate Screen Urine Negative (Negative); PCP Screen Urine Negative (Negative); THC Screen Urine Negative (Negative)
[2022-03-02] MEDS: nicotine 2 mg Gum BUCCAL (13:52)
[2022-03-02 14:00] VITALS: BP 90/64; PULSE 63; RESP 18; TEMP 36.9; O2SAT 97
--- NOTE | 2022-03-02 14:49 | PC.SOCIAL ---
Patient did not attend group.
[2022-03-02 20:29] VITALS: BP 92/52; PULSE 64; RESP 18; TEMP 36.5; O2SAT 98
[2022-03-02] MEDS: trazodone 100 mg Tablet PO (21:02)
[2022-03-02] MEDS: PARoxetine 20 mg Tablet PO (21:02)
[2022-03-03 06:00] VITALS: BP 91/56; PULSE 69; RESP 18; TEMP 36.7; O2SAT 96
[2022-03-03] MEDS: BuSPIRONE 10 mg Tablet PO ×2 (08:02→14:50)
[2022-03-03] MEDS: propranolol 20 mg Tablet PO (08:02)
--- NOTE | 2022-03-03 18:57 | P.NPUDS_ITS ---
Diagnoses at Discharge Discharge Diagnosis (1) Methamphetamine use: (2) Major depressive disorder: Status: Acute (3) Anxiety: Status: Acute (4) Suicidal ideation: Status: Resolved Reason for Visit Reason for Visit: si Brief History: History of Present Illness Bernice Saenz is a 36 year old female admitted to our emergency department with the following report: 36-year-old presents with suicidal ideation.? She denies any previous attempts to hurt herself.? She does not have a concrete plan.? Denies any hallucinations or delusions.? Denies any desire to hurt anyone else.? Denies any illicit substance use. She is admitted for definitive treatment of these issues.? She says that she has been having suicidal ideation for about 1 year.? It was more real and intense yesterday.? She decided to get help.? She said that she would like some help with sleep, anxiety and to level out her hormones.? She said that she was aware of her age and that the change of life is coming.? She would like to take something to delay that.? She refused any medication other than BuSpar when she was here last time.? She said she would be willing to take an antidepressant now.? She also has sweaty palms and would like something to help that.? We talked about the alternatives and she decided that Paxil would be her choice.? She also tried some trazodone 50 mg last night and it helped somewhat but she would like to try 100 mg.? She says that she does not get much sleep.? She generally takes Benadryl [id number] 1 tablet at night.? It is assumed that is 25 mg.? She says that helped some but not much.? She usually takes ibuprofen and aspirin along with it.? She has a fair amount of anxiety.? She gets very distracted and is overwhelmed when she is shopping at [employer].? She does not have any difficulty standing in line to pay.? She used to be somewhat obsessive-compulsive but it is better now.? She does have a thing about certain numbers.? She was adamant that she has not used methamphetamine since she has been on probation.? She has been tested and has been negative.? She does not know exactly how long she has been on probation.? She was positive for methamphetamine on the last admission but it was not tested in the emergency department yesterday. Below is the discharge summary from her last admission. 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 Qualified Code(s):? F24 - Shared psychotic disorder (3) Methamphetamine use: ?Status:?Acute (4) Depression: ?Status:?Resolved Reason for Visit MHE? Brief History: History of Present Illness ?Bernice Obrien is a 35 year old female who presented to the emergency department with the following report: ?Chief Complaint: Psychiatric Symptoms ?Stated Complaint: MHE ?Time Seen by Provider: 02/05/21 11:07 ?Source: police ?Mode of arrival: other (police) ?Limitations: altered mental status ?History of Present Illness:?? HPI Narrative: This 35-year-old female patient with a history of methamphetamine use was brought to the emergency department by police officers. ?She was apparently at the court house where her mother was trying to get a 96- hour psychiatric hold of this patient and while she was there the patient's started exhibiting unusual behavior according to the police officers.? She was loud, not cooperating, saying people were trying to kill her, saying everybody in the court house was trying to kill her.? The personal lines appraiser therefore ordered them to bring her to the emergency department for psychiatric evaluation and the personal lines appraiser is working on a 96-hour court-ordered hold. ?She was admitted to the neuropsychiatric unit for definitive treatment of those issues.? She required significant medication and restraints while in the emergency department.? She was finally able to be taken out of restraints and brought down to the unit where she slept well overnight secondary to medication.? This morning she remains fairly somnolent but arousable.? She essentially reports that she had resumed use after her last hospitalization here with this mortgage underwriter.? She can give me no clear reason what the circumstances were that led her to be under the influence at the court house.? She is a extremely incapable historian at this point mostly making quick statements of agreement and some monosyllabic grunts and statements.? She was able to communicate having headaches and really having a rough time in her withdrawal.? Otherwise she reported that she was here to try to get better overall.? We briefly discussed the risk-benefit and alternatives of continuing her current medication and she understood and agreed proceed as is documented in this note.? Otherwise she was a very limited historical assistance.? Below please find an excerpt from her last inpatient stay for context. Hospital Course Bernice presented to the emergency department with psychosis, active addiction and concerns for lethality.? She was admitted to the neuropsychiatric unit for definitive treatment of those issues.? She very slowly acclimated to the individual, group and milieu therapies provided but certainly presented at a high level of functioning and she normally does when she comes to see us.? Normally she has profound psychosis needing antipsychotics to break the episode, however this time she was more irritable than psychotic after the first day or so leaving only the concerns for safety.? Unlike previous days she was not open to restarting her medication and she continues to be resistant/ambivalent about recovery and addiction treatment.? She showed modest improvement and was able to contract for safety prior to discharge but was resistant to active engagement in treatment.? During the hospitalization, patient had routine laboratory studies which were within normal limits except for few outliers.? Additionally there was a general medical evaluation which was also within normal limits and revealed no new acute processes. Hospital Course Hospital Course She slowly acclimated to the individual, group and milieu therapies provided. Unlike previous encounters she was not positive for methamphetamine and was hopeful with her improvement that she could be discharged and begin working on her continued sobriety. She reported that the resumption of previously effective medications and the addition of Paxil have been helpful and she feels confident she can continue her improvement from here. She was able to contract for safety outside of the hospital prior to discharge. During the hospitalization, patient had routine laboratory studies which were within normal limits except for few outliers. Additionally there was a general medical evaluation which was also within normal limits and revealed no new acute processes. Discharge Summary: At the time of discharge, she denied psychosis or lethality. Mood and anxiety were well managed. Patient endorsed a plan to avoid all drugs of abuse and follow-up with the aftercare recommendations of the treatment team. Patient was evaluated and deemed to be absent credible lethality, and had achieved the maximum benefit from an inpatient hospitalization, so was discharged. Involuntary Hold Information 96 Hour Hold: 96 Hour Involuntary Admission: No 96 Hour Hold Ending Date: 02/11/21 96 Hour Hold Ending Time: 11:50 Mental Status Exam MSE Comments: This is a slender white female in hospital scrubs with adequate grooming and eye contact. Hair shaved in the Arabic. Cooperative with exam in no acute distress. Speech was normal rate and volume. Mood described as better, affect congruent. Thought process organized. Thought content: Patient denied suicidal or homicidal ideation, there were no delusions reported or note d, she denied any auditory visual hallucinations. Attention and concentration were intact and memory appeared reliable but none were formally tested. She is alert and oriented x3. Insight and judgment appear improving, impulse control is limited but improving. Discharge Data Studies Completed and Pending: Laboratory Results WBC 10.7 10^3/uL (4.0 -10.0) H 02/25/22 19:58 RBC 4.46 10^6/uL (4.1 -5.3) 02/25/22 19:58 Hgb 13.4 g/dL (11.5-1 5.3) 02/25/22 19:58 Hct 39.7 % (37.0-47.0 ) 02/25/22 19:58 MCV 89.0 fl (81-99) 02/25/22 19:58 MCH 30.0 pg (28.0-34. 0) 02/25/22 19:58 MCHC 33.8 g/dL (30.0-3 6.0) 02/25/22 19:58 RDW 12.5 % (12.1-15.1 ) 02/25/22 19:58 Plt Count 401 10^3/cmm (130 -400) H 02/25/22 19:58 MPV 10.0 fL (7.4-10.4 ) 02/25/22 19:58 Neut % (Auto) 54.1 % 02/25/22 19:58 Lymph % (Auto) 34.6 % 02/25/22 19:58 Haines % (Auto) 6.4 % 02/25/22 19:58 Eos % (Auto) 3.8 % 02/25/22 19:58 Baso % (Auto) 0.9 % 02/25/22 19:58 Neut # (Auto) 5.77 10^3/uL (1.8 -7.7) 02/25/22 19:58 Lymph # (Auto) 3.7 10^3/uL (0.8- 4.8) 02/25/22 19:58 Haines # (Auto) 0.7 10^3/uL (0.2- 0.9) 02/25/22 19:58 Eos # (Auto) 0.4 10^3/uL (0.0- 0.8) 02/25/22 19:58 Baso # (Auto) 0.1 10^3/uL (0.0- 0.1) 02/25/22 19:58 Nucleated RBC % (a uto) 0 % 02/25/22 19:58 Nucleated RBCs # 0.0 /100WBC 02/25/22 19:58 Sodium 139 mmol/L (136-1 45) 02/25/22 19:58 Potassium 3.4 mmol/L (3.5-5 .1) L 02/25/22 19:58 Chloride 103 mmol/L (98-10 7) 02/25/22 19:58 Carbon Dioxide 24 mmol/L (22-29) 02/25/22 19:58 Anion Gap 15.4 (5-19) 02/25/22 19:58 BUN 12 mg/dL (6-20) 02/25/22 19:58 Creatinine 0.8 mg/dL (0.5-0. 9) 02/25/22 19:58 GFR Calculation 81.6 mL/min (90-1 30) L 02/25/22 19:58 Glucose 113 mg/dL (65-115 ) 02/25/22 19:58 Calculated Osmolal ity 289 mOsm/kg (285- 295) 02/25/22 19:58 Calcium 8.1 mg/dL (8.5-10 .5) L 02/25/22 19:58 Total Bilirubin 0.7 mg/dL (0.15-1 .2) 02/25/22 19:58 AST 19 U/L (0-32) 02/25/22 19:58 ALT 14 U/L (0-33) 02/25/22 19:58 Alkaline Phosphata se 62 IU/L (35-105) 02/25/22 19:58 Total Protein 6.7 g/dL (6.6-8.7 ) 02/25/22 19:58 Albumin 4.5 g/dL (3.5-5.2 ) 02/25/22 19:58 Globulin 2.2 g/dL (1.3-4.6 ) 02/25/22 19:58 TSH 1.65 uIU/mL (0.27 -4.20) 02/25/22 19:58 HCG, Qual Negative (Negati ve) 02/28/22 22:40 Urine Color Yellow (Yellow) 03/02/22 12:30 Urine Appearance Hazy (CLEAR) A 03/02/22 12:30 Urine pH 5 (5-7) 03/02/22 12:30 Ur Specific Gravit y 1.020 (1.005-1.0 30) 03/02/22 12:30 Urine Protein Neg (Negative) 03/02/22 12:30 Urine Glucose (UA) Norm (Normal) 03/02/22 12:30 Urine Ketones Negative (Negati ve) 03/02/22 12:30 Urine Blood 3+ (Negative) H 03/02/22 12:30 Urine Nitrate Negative (Negati ve) 03/02/22 12:30 Urine Bilirubin Neg (Negative) 03/02/22 12:30 Urine Urobilinogen Neg mg/dL (Negati ve) 03/02/22 12:30 Ur Leukocyte Sharita ase 2+ (Negative) H 03/02/22 12:30 Urine RBC 0-4 /hpf (0-2) H 03/02/22 12:30 Urine WBC 0-4 /hpf (0-5) H 03/02/22 12:30 Ur Squamous Epith Cells 10-15 /hpf (0-5) H 03/02/22 12:30 Amorphous Sediment Not Reportable 03/02/22 12:30 Urine Bacteria 2+ /hpf (NONE) H 03/02/22 12:30 Salicylates < 0.3 mg/dL (3-10 ) L 02/25/22 19:58 Urine Opiates Scre en Negative ng/mL (N egative) 03/02/22 12:30 Acetaminophen < 5.0 ug/mL (10-3 0) L 02/25/22 19:58 Ur Barbiturates Sc reen Negative ng/mL (N egative) 03/02/22 12:30 Ur Phencyclidine S crn Negative ng/mL (N egative) 03/02/22 12:30 Ur Amphetamines Sc reen Negative ng/mL (N egative) 03/02/22 12:30 U Benzodiazepines Scrn Negative ng/mL (N egative) 03/02/22 12:30 Urine Cocaine Scre en Negative ng/mL (N egative) 03/02/22 12:30 U Marijuana (THC) Screen Negative ng/mL (N egative) 03/02/22 12:30 Ethyl Alcohol < 10 mg/dL (0-10) 02/25/22 19:58 Vitals: Last Vital Signs Temp 98.0 F 03/03/22 06:00 Pulse 69 03/03/22 06:00 Resp 18 03/03/22 06:00 BP 91/56 03/03/22 06:00 Pulse Ox 96 03/03/22 06:00 Discharge Plan Discharge Patient Disposition: Home Condition: Stable Prescriptions: New trazodone 100 mg Tablet 100 mg PO BEDTIME 30 Days Qty: 30 1RF paroxetine HCl 20 mg Tablet 20 mg PO BEDTIME 30 Days Qty: 30 1RF buspirone 10 mg Tablet 10 mg PO TID 30 Days Qty: 90 1RF propranolol 20 mg Tablet 20 mg PO 0900,2100 30 Days Qty: 60 1RF Continued fluticasone propionate [Allergy Relief (fluticasone)] 50 mcg/actuation spray,suspension 2 spray intranasal DAILY 0RF Rx Instructions: administer into each nostril prednisone 20 mg tablet 20 mg PO DAILY 0RF albuterol sulfate [ProAir HFA] 90 mcg/actuation HFA aerosol inhaler 2 puff inhalation Q6H PRN (Reason: breath) 0RF hydrocodone-acetaminophen 5-325 mg tablet 1 tab PO Q6H PRN (Reason: pain) Qty: 14 0RF ondansetron 4 mg tablet,disintegrating 4 mg PO Q6H PRN (Reason: nausea and vomiting) Qty: 14 0RF Discontinued buspirone 10 mg tablet See Rx Instructions .ROUTE .COMPLEX Qty: 60 0RF Rx Instructions: 10 mg orally BID for 3 days then increase to 10 mg TID Discharge Orders: Discharge Order (Routine); Ordered 03/03/22 Ordered By: Fletcher Siddiqui Referrals: [facility] [Outside] - 03/16/22 12:30 pm (Initial appointment. Check in time at 12:30 pm and appointment set for 1:00 pm. ) Reuben Mccain, [Primary Care Provider] - 03/10/22 9:40 am (Follow up.) Discharge Diet: Regular Discharge Activity: Resume usual activity Patient Instructions: Propranolol (By mouth), Buspirone (By mouth), Trazodone (By mouth), Olanzapine/Fluoxetine (By mouth) (Symbyax), Depression (ED), Anxiety (DC), Opioid Safety Discharge Attestations NPU Time Spent in Discharge Care*: less than 30 min Specific Discharge Activities: Specific discharge activities: educating pat ient, discussing with pcp/other providers, documenting/other paperwork and evaluating patient/reviewing data Coding Level of Care Code Acute Chg FW DC note Diagnoses Methamphetamine use F15.10 Major depressive disorder F32.9 Anxiety F41.9 Suicidal ideation R45.851
[2022-03-03 19:45] VITALS: BP 91/56; PULSE 69; RESP 18; TEMP 36.7; O2SAT 96
== END 2022-03-03 20:40 | disposition home or self-care (01) | DRG 881 ==
LOC: ER 19:55 → NP 20:39
PROVIDERS: Emergency Medicine; Psychiatry & Neurology Psychiatry; Admitting Provider Psychiatry & Neurology Psychiatry; Emergency Provider Emergency Medicine; PCP Family Medicine; Visit Provider Psychiatry & Neurology Psychiatry
DX: F32.9 Major depressive disorder, single episode, unspecified (principal); R45.851 Suicidal ideations; F41.9 Anxiety disorder, unspecified; F15.10 Other stimulant abuse, uncomplicated; F17.210 Nicotine dependence, cigarettes, uncomplicated; R61 Generalized hyperhidrosis; Z79.891 Long term (current) use of opiate analgesic
CPT/HCPCS: 80053; 80306; 80307; 81001; 81025; 84443; 85025; 97150; 97165; 99285

== ENCOUNTER 2022-07-31 13:21 | Emergency (ER) | payer BC, MEDICAID, SELFPAY ==
[2022-07-31 13:28] VITALS: BP 109/73; PULSE 122; RESP 16; TEMP 36.5; O2SAT 95; BMI 21.2
--- NOTE | 2022-07-31 13:43 | W.ED.PSYCHS ---
Documented by User: JUAN JOSE Block 07/31/22 23:29 HPI - Psych General: Chief Complaint: Psychiatric Symptoms Stated Complaint: mhe Time Seen by Provider: 07/31/22 13:34 History of Present Illness: 36-year-old female comes in today for concerns of suicidal thoughts. Patient denies any set plan or recent attempt. Patient has a history of prior suicidal ideation, major depressive disorder, anxiety, drug-induced psychosis with delusions. Patient does admit that her drugs of choice are methamphetamines and alcohol. Patient reports no recent use, however, patient is restless and appears under the influence of stimulant. Patient denies any hallucinations, patient has not taken any prescription medications and has not prescribed any at this time. Patient does smoke tobacco and chew tobacco. Patient denies any marijuana use. Patient reports she does have a place to stay at this time. Associated symptoms: Reports suicidal ideation Review of Systems Const: Denies: fever(s) or body aches Card: Denies: chest pain Resp: Denies: dyspnea GI: Denies: nausea or vomiting Neuro: Denies: headache(s) Psych: Reports: sleeping less and suicidal ideation [facility] PFSH: Medical History (Updated 07/31/22 @ 15:19 by JUAN JOSE Block) Methamphetamine use Family History Daughter Diabetes Mother Hypertension Grandfather No problems noted. Grandmother Breast cancer 70's Denies family history of Colon cancer Ovarian cancer Clotting disorder Heart disease Hyperlipidemia Anesthesia complication Bleeding disorder Uterine cancer Thyroid condition Stroke Social History Smoking and tobacco status: current every day smoker cigarettes Packs smoked per day: 0.5 Alcohol intake: never Current gender identity: Female Female Reproductive History: Date of last menstrual period: 02/20/22 Physical Exam Const: COMMON NORMALS: alert HENMT: COMMON NORMALS: normocephalic HEAD & SCALP: normocephalic Neck/C-Spine: COMMON NORMALS: full ROM Resp: COMMON NORMALS: normal respiratory effort and clear to auscultation bilaterally AUSCULTATION: clear to auscultation bilaterally Cardio: COMMON NORMALS: regular rate and regular rhythm RATE: regular rate RHYTHM: regular rhythm Extremity: COMMON NORMALS: normal to inspection Neuro: SENSORIUM/ORIENTATION: Yes alert Skin: LESIONS: lesion noted (Scattered picking lesions) Course ED course: 1929, patient is resting well. Patient reports increase in anxiety and would like another dose of medication for her anxiety. Patient also request something for sleep. We are attempting to find placement for patient for her suicidal thoughts. We are awaiting callback from different facilities. Patient has been cooperative throughout the stay. 2221, patient is sleeping well. No acute distress is noted. Vital Signs: Vital signs: Vital Signs Temperature 97.7 F 07/31/22 13:28 Pulse Rate 82 07/31/22 19:50 Respiratory Rate 18 07/31/22 19:50 Blood Pressure 102/64 07/31/22 19:50 Pulse Oximetry 98 07/31/22 19:50 Oxygen Delivery Me thod 07/31/22 17:30 MDM - Psych Medical Decision Making 36-year-old female comes in today for complaints of suicidal thoughts. Patient has no plan. Patient is evasive in answering questions regarding the situation that increased her anxiety, depression, and thoughts of suicide. On exam lungs are clear to auscultation. Skin is warm and dry. Patient does have some picking lesions to her neck face and forearms. Patient does admit that her drugs of choice are alcohol and methamphetamines. 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 Patient has had a admission to the stress unit in February of this year for drug-induced psychotic disorder. Patient denies hallucinations. Patient also admits that she had a failed drug test with her special assets officer last week and has to have a re-test in a few days. Differential diagnosis includes major depressive disorder, substance use disorder, suicidal ideation. Lab Data : 07/31/22 13:52 07/31/22 13:52 Laboratory Results WBC 10.5 10^3/uL (4.0-10.0) H 07/31/22 13:52 RBC 4.48 10^6/uL (4.1-5.3) 07/31/22 13:52 Hgb 13.8 g/dL (11.5-15.3) 07/31/22 13:52 Hct 40.4 % (37.0-47.0) 07/31/22 13:52 MCV 90.2 fl (81-99) 07/31/22 13:52 MCH 30.8 pg (28.0-34.0) 07/31/22 13:52 MCHC 34.2 g/dL (30.0-36.0) 07/31/22 13:52 RDW 12.4 % (12.1-15.1) 07/31/22 13:52 Plt Count 347 10^3/cmm (130-400) 07/31/22 13:52 MPV 10.1 fL (7.4-10.4) 07/31/22 13:52 Neut % (Auto) 68.0 % 07/31/22 13:52 Lymph % (Auto) 21.0 % 07/31/22 13:52 [place] % (Auto) 5.0 % 07/31/22 13:52 Eos % (Auto) 5.0 % 07/31/22 13:52 Baso % (Auto) 0.8 % 07/31/22 13:52 Neut # (Auto) 7.14 10^3/uL (1.8-7.7) 07/31/22 13:52 Lymph # (Auto) 2.2 10^3/uL (0.8-4.8) 07/31/22 13:52 [place] # (Auto) 0.5 10^3/uL (0.2-0.9) 07/31/22 13:52 Eos # (Auto) 0.5 10^3/uL (0.0-0.8) 07/31/22 13:52 Baso # (Auto) 0.1 10^3/uL (0.0-0.1) 07/31/22 13:52 Nucleated RBC % (auto) 0 % 07/31/22 13:52 Nucleated RBCs # 0.0 /100WBC 07/31/22 13:52 Sodium 136 mmol/L (136-145) 07/31/22 13:52 Potassium 3.7 mmol/L (3.5-5.1) 07/31/22 13:52 Chloride 103 mmol/L (98-107) 07/31/22 13:52 Carbon Dioxide 23 mmol/L (22-29) 07/31/22 13:52 Anion Gap 13.7 (5-19) 07/31/22 13:52 BUN 12 mg/dL (6-20) 07/31/22 13:52 Creatinine 0.9 mg/dL (0.5-0.9) 07/31/22 13:52 GFR Calculation 71.3 mL/min (90-130) L 07/31/22 13:52 Glucose 101 mg/dL (65-115) 07/31/22 13:52 Calculated Osmolality 282 mOsm/kg (285-295) L 07/31/22 13:52 Calcium 9.0 mg/dL (8.5-10.5) 07/31/22 13:52 Total Bilirubin 0.5 mg/dL (0.15-1.2) 07/31/22 13:52 AST 12 U/L (0-32) 07/31/22 13:52 ALT 11 U/L (0-33) 07/31/22 13:52 Alkaline Phosphatase 51 U/L (35-105) 07/31/22 13:52 Total Protein 6.7 g/dL (6.6-8.7) 07/31/22 13:52 Albumin 4.2 g/dL (3.5-5.2) 07/31/22 13:52 Globulin 2.5 g/dL (1.3-4.6) 07/31/22 13:52 TSH 0.69 uIU/mL (0.27-4.20) 07/31/22 13:52 HCG, Qual Negative (Negative) 07/31/22 15:30 Salicylates 0.4 mg/dL (3-10) L 07/31/22 13:52 Urine Opiates Screen Negative ng/mL (Negative) 07/31/22 15:30 Acetaminophen < 5.0 ug/mL (10-30) L 07/31/22 13:52 Ur Barbiturates Screen Negative ng/mL (Negative) 07/31/22 15:30 Ur Phencyclidine Scrn Negative ng/mL (Negative) 07/31/22 15:30 Ur Amphetamines Screen Negative ng/mL (Negative) 07/31/22 15:30 U Benzodiazepines Scrn Negative ng/mL (Negative) 07/31/22 15:30 Urine Cocaine Screen Negative ng/mL (Negative) 07/31/22 15:30 U Marijuana (THC) Screen Negative ng/mL (Negative) 07/31/22 15:30 Ethyl Alcohol < 10 mg/dL (0-10) 07/31/22 13:52 SARS-CoV-2 Ag (Rapid) Negative (Negative) 07/31/22 15:50 EKG Data EKG 1: EKG interpretation date: 07/31/22 EKG interpretation time: 15:27 Prior EKG tracings: not available for review Interpretation: EKG shows a regular rate in the 90s with no ectopy or ST elevation. Prior exam was not available for comparison. Discharge Plan Discharge Patient Disposition: Xfer Psychiatric Hosp Clinical Impression: Suicidal ideation, Major depressive disorder, Substance abuse, binge pattern Condition: Stable Referrals: Reuben Mccain DO [Primary Care Provider] - Coding Level of Care Code ED Outside Production Inspector for Chg Fwd Exam Detailed Documented by User: Naseme Temple DO 08/01/22 01:54 HPI - Psych General: Chief Complaint: Psychiatric Symptoms Stated Complaint: mhe Time Seen by Provider: 07/31/22 13:34 PFSH ED PFSH: Medical History (Updated 07/31/22 @ 15:19 by JUAN JOSE Block) Methamphetamine use Family History Daughter Diabetes Mother Hypertension Grandfather No problems noted. Grandmother Breast cancer 70's Denies family history of Colon cancer Ovarian cancer Clotting disorder Heart disease Hyperlipidemia Anesthesia complication Bleeding disorder Uterine cancer Thyroid condition Stroke Social History Smoking and tobacco status: current every day smoker cigarettes Packs smoked per day: 0.5 Alcohol intake: never Current gender identity: Female Course Vital Signs: Vital signs: Vital Signs Temperature 97.7 F 07/31/22 13:28 Pulse Rate 82 07/31/22 19:50 Respiratory Rate 18 07/31/22 19:50 Blood Pressure 102/64 07/31/22 19:50 Pulse Oximetry 98 07/31/22 19:50 Oxygen Delivery Me thod 07/31/22 17:30 MDM - Psych Medical Decision Making 36-year-old female comes in today for complaints of suicidal thoughts. Patient has no plan. Patient is evasive in answering questions regarding the situation that increased her anxiety, depression, and thoughts of suicide. On exam lungs are clear to auscultation. Skin is warm and dry. Patient does have some picking lesions to her neck face and forearms. Patient does admit that her drugs of choice are alcohol and methamphetamines. 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 Patient has had a admission to the stress unit in February of this year for drug-induced psychotic disorder. Patient denies hallucinations. Patient also admits that she had a failed drug test with her special assets officer last week and has to have a re-test in a few days. Differential diagnosis includes major depressive disorder, substance use disorder, suicidal ideation. This patient was originally seen by JUAN JOSE Hernandez.? I agree with his history, evaluation, and treatment. Lab Data : 07/31/22 13:52 07/31/22 13:52 Laboratory Results WBC 10.5 10^3/uL (4.0-10.0) H 07/31/22 13:52 RBC 4.48 10^6/uL (4.1-5.3) 07/31/22 13:52 Hgb 13.8 g/dL (11.5-15.3) 07/31/22 13:52 Hct 40.4 % (37.0-47.0) 07/31/22 13:52 MCV 90.2 fl (81-99) 07/31/22 13:52 MCH 30.8 pg (28.0-34.0) 07/31/22 13:52 MCHC 34.2 g/dL (30.0-36.0) 07/31/22 13:52 RDW 12.4 % (12.1-15.1) 07/31/22 13:52 Plt Count 347 10^3/cmm (130-400) 07/31/22 13:52 MPV 10.1 fL (7.4-10.4) 07/31/22 13:52 Neut % (Auto) 68.0 % 07/31/22 13:52 Lymph % (Auto) 21.0 % 07/31/22 13:52 [place] % (Auto) 5.0 % 07/31/22 13:52 Eos % (Auto) 5.0 % 07/31/22 13:52 Baso % (Auto) 0.8 % 07/31/22 13:52 Neut # (Auto) 7.14 10^3/uL (1.8-7.7) 07/31/22 13:52 Lymph # (Auto) 2.2 10^3/uL (0.8-4.8) 07/31/22 13:52 [place] # (Auto) 0.5 10^3/uL (0.2-0.9) 07/31/22 13:52 Eos # (Auto) 0.5 10^3/uL (0.0-0.8) 07/31/22 13:52 Baso # (Auto) 0.1 10^3/uL (0.0-0.1) 07/31/22 13:52 Nucleated RBC % (auto) 0 % 07/31/22 13:52 Nucleated RBCs # 0.0 /100WBC 07/31/22 13:52 Sodium 136 mmol/L (136-145) 07/31/22 13:52 Potassium 3.7 mmol/L (3.5-5.1) 07/31/22 13:52 Chloride 103 mmol/L (98-107) 07/31/22 13:52 Carbon Dioxide 23 mmol/L (22-29) 07/31/22 13:52 Anion Gap 13.7 (5-19) 07/31/22 13:52 BUN 12 mg/dL (6-20) 07/31/22 13:52 Creatinine 0.9 mg/dL (0.5-0.9) 07/31/22 13:52 GFR Calculation 71.3 mL/min (90-130) L 07/31/22 13:52 Glucose 101 mg/dL (65-115) 07/31/22 13:52 Calculated Osmolality 282 mOsm/kg (285-295) L 07/31/22 13:52 Calcium 9.0 mg/dL (8.5-10.5) 07/31/22 13:52 Total Bilirubin 0.5 mg/dL (0.15-1.2) 07/31/22 13:52 AST 12 U/L (0-32) 07/31/22 13:52 ALT 11 U/L (0-33) 07/31/22 13:52 Alkaline Phosphatase 51 U/L (35-105) 07/31/22 13:52 Total Protein 6.7 g/dL (6.6-8.7) 07/31/22 13:52 Albumin 4.2 g/dL (3.5-5.2) 07/31/22 13:52 Globulin 2.5 g/dL (1.3-4.6) 07/31/22 13:52 TSH 0.69 uIU/mL (0.27-4.20) 07/31/22 13:52 HCG, Qual Negative (Negative) 07/31/22 15:30 Salicylates 0.4 mg/dL (3-10) L 07/31/22 13:52 Urine Opiates Screen Negative ng/mL (Negative) 07/31/22 15:30 Acetaminophen < 5.0 ug/mL (10-30) L 07/31/22 13:52 Ur Barbiturates Screen Negative ng/mL (Negative) 07/31/22 15:30 Ur Phencyclidine Scrn Negative ng/mL (Negative) 07/31/22 15:30 Ur Amphetamines Screen Negative ng/mL (Negative) 07/31/22 15:30 U Benzodiazepines Scrn Negative ng/mL (Negative) 07/31/22 15:30 Urine Cocaine Screen Negative ng/mL (Negative) 07/31/22 15:30 U Marijuana (THC) Screen Negative ng/mL (Negative) 07/31/22 15:30 Ethyl Alcohol < 10 mg/dL (0-10) 07/31/22 13:52 SARS-CoV-2 Ag (Rapid) Negative (Negative) 07/31/22 15:50 Discharge Plan Discharge Patient Disposition: Xfer Psychiatric Hosp Clinical Impression: Suicidal ideation, Major depressive disorder, Substance abuse, binge pattern Condition: Stable Referrals: Reuben Mccain DO [Primary Care Provider] - Coding Level of Care Code ED Outside Production Inspector for Chg Fwd Exam Detailed
[2022-07-31 14:01] LABS: Basophils # 0.1 10^3/uL (0.0-0.1); Basophils % 0.8 %; Eosinophils # 0.5 10^3/uL (0.0-0.8); Hematocrit 40.4 % (37.0-47.0); Hemoglobin 13.8 g/dL (11.5-15.3); Lymphocytes # 2.2 10^3/uL (0.8-4.8); Mean Corpuscular HGB Conc 34.2 g/dL (30.0-36.0); Mean Corpuscular Hemoglobin 30.8 pg (28.0-34.0); Mean Corpuscular Volume 90.2 fl (81-99); Mean Platelet Volume 10.1 fL (7.4-10.4); Monocytes # 0.5 10^3/uL (0.2-0.9); Neutrophils # 7.14 10^3/uL (1.8-7.7); Nucleated Red Blood Cells % 0 %; Platelet Count 347 10^3/cmm (130-400); Red Blood Count 4.48 10^6/uL (4.1-5.3); Red Cell Distribution Width 12.4 % (12.1-15.1); White Blood Count 10.5 10^3/uL (4.0-10.0)
[2022-07-31] MEDS: hyDROXYzine 25 mg Capsule 50 MG PO ×2 (14:19→19:39)
[2022-07-31 14:30] LABS: Alanine Aminotransferase 11 U/L (0-33); Albumin Level 4.2 g/dL (3.5-5.2); Alkaline Phosphatase 51 U/L (35-105); Anion Gap 13.7 (5-19); Aspartate Amino Transferase 12 U/L (0-32); Blood Urea Nitrogen 12 mg/dL (6-20); Carbon Dioxide 23 mmol/L (22-29); Chloride 103 mmol/L (98-107); Globulin 2.5 g/dL (1.3-4.6); Glomerular Filtration Rate 71.3 mL/min (90-130); Glucose 101 mg/dL (65-115); Osmolality Calculated 282 mOsm/kg (285-295); Potassium 3.7 mmol/L (3.5-5.1); Salicylate 0.4 mg/dL (3-10); Sodium 136 mmol/L (136-145); Thyroid Stimulating Hormone 0.69 uIU/mL (0.27-4.20); Total Bilirubin 0.5 mg/dL (0.15-1.2); Total Protein 6.7 g/dL (6.6-8.7)
[2022-07-31 14:51] LABS: Acetaminophen < 5.0 ug/mL (10-30); Alcohol Level < 10 mg/dL (0-10)
[2022-07-31 15:00] VITALS: BP 107/74; PULSE 85; RESP 16; O2SAT 90
--- NOTE | 2022-07-31 15:01 | ECG_ITS ---
[facility] Test Date: 2022-07-31 Pat Name: Bernice Saenz Department: Room: Gender: Female Automation Qtp Tester: : 1985 Requested By: Sesar Abreu Order Number: [id number] Yancy MD: Rodríguez Sutton M.D. Measurements Intervals [place] Rate: 84 P: 59 UT: 140 QRS: 66 QRSD: 94 T: 64 QT: 393 QTc: 466 Interpretive Statements SINUS RHYTHM NONSPECIFIC T-WAVE ABNORMALITY Compared to ECG 11/10/2019 10:30:47 T-wave abnormality now present Electronically Signed On 07-31-2022 17:36:19 CDT by Rodríguez Sutton M.D. [id number]
[2022-07-31] MEDS: nicotine 21 mg Patch 1 PATCH TRANSDERMA (15:15)
[2022-07-31 16:00] LABS: HCG Qualitative Urine. Negative (Negative)
[2022-07-31 16:05] LABS: Amphetamines Screen Urine Negative (Negative); Barbiturates Screen Urine Negative (Negative); Benzodiazepines Screen Urine Negative (Negative); Cocaine Screen Urine Negative (Negative); Opiate Screen Urine Negative (Negative); PCP Screen Urine Negative (Negative); THC Screen Urine Negative (Negative)
[2022-07-31 16:16] LABS: SARS Covid-2 Antigen Negative (Negative)
[2022-07-31 17:30] VITALS: BP 102/71; PULSE 88; RESP 16; O2SAT 98
[2022-07-31] MEDS: zolpidem 5 mg Tablet PO (19:39)
[2022-07-31 19:50] VITALS: BP 102/64; PULSE 82; RESP 18; O2SAT 98
--- NOTE | 2022-08-01 00:58 | PC.NURSE ---
Bear Ortega at [facility] that pt is leaving with [facility] and should have about a 2 1/2 hour ETA
== END 2022-08-01 01:09 ==
PROVIDERS: Emergency Medicine; Emergency Provider Nurse Practitioner Family; PCP Family Medicine
DX: R45.851 Suicidal ideations (principal); F32.9 Major depressive disorder, single episode, unspecified; F19.10 Other psychoactive substance abuse, uncomplicated; F17.210 Nicotine dependence, cigarettes, uncomplicated; Z20.822 Contact with and (suspected) exposure to COVID-19
CPT/HCPCS: 80053; 80306; 80307; 81025; 84443; 85025; 87426; 93005; 99284

== ENCOUNTER 2022-10-02 14:52 | Inpatient (IN) | payer BC, SELFPAY ==
[2022-10-02 14:58] VITALS: PULSE 100; RESP 18; TEMP 36.4; O2SAT 98
--- NOTE | 2022-10-02 15:23 | ED.C_ITS ---
Documented by User: Prieto Zarco DO 10/02/22 18:04 HPI - Psych General: Chief Complaint: Psychiatric Symptoms Stated Complaint: states she feels dehydrated Time Seen by Provider: 10/02/22 15:09 History of Present Illness: 36-year-old female presents because she feels suicidal. She also thinks she is a little dehydrated. Patient reports that things just got intense but she will not expand on that. Patient reports that she she is having some thoughts of wanting to harm her self but has no plan. Patient reports that she has been hospitalized 2 previous times for suicidal ideas. Patient reports that she is complains of having a history of depression. Patient reports that she just cannot describe how she is feeling Associated symptoms: Reports depression and suicidal ideation; Deny homicidal ideation Review of Systems Const: Denies: fever(s) or chills Eyes: Denies: blurry vision or eye discharge ENMT: Denies: throat pain or ear or mastoid pain Card: Denies: chest pain or lightheadedness Resp: Denies: dyspnea or productive cough GI: Denies: abdominal pain, nausea or vomiting : Denies: flank pain or difficulty voiding Musc: Denies: neck pain or back pain Skin/Breast: Denies: rash or erythema Neuro: Reports: dizziness; Denies: headache(s) Psych: Reports: depression and suicidal ideation; Denies: homicidal ideation [facility] ED PFSH: Medical History (Updated 10/03/22 @ 15:10 by Fausto Camilo DO) Methamphetamine use Psychiatric care Family History Daughter Diabetes Mother Hypertension Grandfather No problems noted. Grandmother Breast cancer 70's Denies family history of Colon cancer Ovarian cancer Clotting disorder Heart disease Hyperlipidemia Anesthesia complication Bleeding disorder Uterine cancer Thyroid condition Stroke Social History Smoking and tobacco status: current every day smoker cigarettes Packs smoked per day: 0.5 Alcohol intake: never Current gender identity: Female Female Reproductive History: Date of last menstrual period: 02/20/22 Physical Exam Const: COMMON NORMALS: average body habitus and alert HENMT: COMMON NORMALS: normocephalic and hearing grossly normal bilaterally HEAD & SCALP: normocephalic Eye: COMMON NORMALS: EOMs intact bilaterally and conjunctivae normal CONJUNCTIVA: Yes conjunctivae normal Neck/C-Spine: COMMON NORMALS: full ROM and supple Resp: COMMON NORMALS: normal respiratory effort, No use of accessory muscles and clear to auscultation bilaterally AUSCULTATION: clear to auscultation bi laterally Cardio: COMMON NORMALS: regular rate and regular rhythm RATE: regular rate RHYTHM: regular rhythm GI: COMMON NORMALS: Soft to palpation and non-tender PALPATION: Yes Soft to palpation Extremity: COMMON NORMALS: full ROM and capillary refill normal Neuro: COMMON NORMALS: moves all extremities and no focal motor deficits SENSORIUM/ORIENTATION: Yes alert SPEECH: speech normal Psych: APPEARANCE: Yes disheveled ATTITUDE: Yes Withdrawn affect present MOOD & AFFECT: Yes depressed mood THOUGHT PROCESS: disorganized THOUGHT CONTENT: Yes Suicidality present and No Homicidality present ATTENTION/CONCENTRATION: Yes attention grossly intact Skin: COMMON NORMALS: no rashes or lesions noted and turgor normal GENERAL SKIN EXAM: no rashes or lesions noted and turgor normal Course Vital Signs: Vital signs: Vital Signs Temperature 98.6 F 10/03/22 06:06 Pulse Rate 90 10/03/22 09:42 Respiratory Rate 16 10/03/22 09:42 Blood Pressure 99/64 10/03/22 09:42 Pulse Oximetry 97 10/03/22 09:42 Oxygen Delivery Me thod 10/03/22 09:42 [facility] - Psych Medical Decision Making Patient requesting placement for her suicidal ideations. We do not have any beds available here at [facility] for inpatient psych. Patient be signed out for further management to Dr. Temple while we look for patient placement Lab Data 10/02/22 16:22 10/02/22 16:22 Laboratory Results WBC 6.7 10^3/uL (4.0-10.0) 10/02/22 16:22 Corrected WBC Cancelled 10/02/22 16:02 RBC 4.83 10^6/uL (4.1-5.3) 10/02/22 16:22 Hgb 14.7 g/dL (11.5-15.3) 10/02/22 16:22 Hct 44.1 % (37.0-47.0) 10/02/22 16:22 MCV 91.3 fl (81-99) 10/02/22 16:22 MCH 30.4 pg (28.0-34.0) 10/02/22 16: MCHC 33.3 g/dL (30.0-36.0) 10/02/22 16: RDW 12.0 % (12.1-15.1) L 10/02/22 16: Plt Count 362 10^3/cmm (130-400) 10/02/22 16: MPV 10.2 fL (7.4-10.4) 10/02/22 16: Gran % Cancelled 10/02/22 16:02 Neut % (Auto) 44.0 % 10/02/22 16: Lymph % (Auto) 42.9 % 10/02/22 16: [place] % (Auto) 5.4 % 10/02/22 16: Eos % (Auto) 6.3 % 10/02/22 16: Baso % (Auto) 1.2 % 10/02/22: Neut # (Auto) 2.93 10^3/uL (1.8-7.7) 10/02/22 16: Lymph # (Auto) 2.9 10^3/uL (0.8-4.8) 10/02/22 16: [place] # (Auto) 0.4 10^3/uL (0.2-0.9) 10/02/22 16: Eos # (Auto) 0.4 10^3/uL (0.0-0.8) 10/02/22 16: Baso # (Auto) 0.1 10^3/uL (0.0-0.1) 10/02/22 16: Absolute Gran (auto) Cancelled 10/02/22 16:02 Nucleated RBC % (auto) 0 % 10/02/22 16: Nucleated RBCs # 0.0 /100WBC 10/02/22 16:22 Sodium 137 mmol/L (136-145) 10/02/22 16:22 Potassium 3.7 mmol/L (3.5-5.1) 10/02/22 16: Chloride 101 mmol/L (98-107) 10/02/22 16:22 Carbon Dioxide 28 mmol/L (22-29) 10/02/22 16:22 Anion Gap 11.7 (5-19) 10/02/22 16: BUN 10 mg/dL (6-20) 10/02/22 16: Creatinine 0.7 mg/dL (0.5-0.9) 10/02/22 16: GFR Calculation 95.2 mL/min (90-130) 10/02/22 16: Glucose 100 mg/dL (65-115) 10/02/22 16: Calculated Osmolality 283 mOsm/kg (285-295) L 10/02/22 16: Calcium 9.5 mg/dL (8.5-10.5) 10/02/22 16: Total Bilirubin 0.7 mg/dL (0.15-1.2) 10/02/22: AST 14 U/L (0-32) 10/02/22: ALT 10 U/L (0-33) 10/02/22 16: Alkaline Phosphatase 47 U/L (35-105) 10/02/22 16: Total Protein 7.0 g/dL (6.6-8.7) 10/02/22 16: Albumin 4.4 g/dL (3.5-5.2) 10/02/22 16: Globulin 2.6 g/dL (1.3-4.6) 10/02/22 16: TSH 0.58 uIU/mL (0.27-4.20) 10/02/22 16: HCG, Qual Negative (Negative) 10/02/22 15: Urine Color Yellow (Yellow) 10/02/22: Urine Appearance Clear (CLEAR) 10/02/22: Urine pH 6 (5-7) 10/02/22 15: Ur Specific [place] 1.005 (1.005-1.030) 10/02/22 15: Urine Protein Neg (Negative) 10/02/22: Urine Glucose (UA) Norm (Normal) 10/02/22 15: Urine Ketones Negative (Negative) 10/02/22 15: Urine Blood Neg (Negative) 10/02/22 15: Urine Nitrate Negative (Negative) 10/02/22 15: Urine Bilirubin Neg (Negative) 10/02/22 15: Urine Urobilinogen Norm mg/dL (Negative) 10/02/22 15:29 Ur Leukocyte Esterase Negative (Negative) 10/02/22 15:29 Salicylates 0.5 mg/dL (3-10) L 10/02/22 16:22 Urine Opiates Screen Negative ng/mL (Negative) 10/02/22 15:29 Acetaminophen < 5.0 ug/mL (10-30) L 10/02/22 16:22 Ur Barbiturates Screen Negative ng/mL (Negative) 10/02/22 15:29 Ur Phencyclidine Scrn Negative ng/mL (Negative) 10/02/22 15:29 Ur Amphetamines Screen Positive ng/mL (Negative) H 10/02/22 15:29 U Benzodiazepines Scrn Negative ng/mL (Negative) 10/02/22 15:29 Urine Cocaine Screen Negative ng/mL (Negative) 10/02/22 15:29 U Marijuana (THC) Screen Negative ng/mL (Negative) 10/02/22 15:29 Ethyl Alcohol < 10 mg/dL (0-10) 10/02/22 16:22 SARS-CoV-2 Ag (Rapid) negative (Negative) 10/02/22 17:45 Discharge Plan Discharge Patient Disposition: Admitted As Inpatient Clinical Impression: Suicidal ideation, Major depressive disorder Condition: Stable Prescriptions: No Action No Known Home Medications Referrals: Reuben Mccain DO [Primary Care Provider] - Sign Out Sign Out Data: Patient Sign Out occurred on 10/03/22 at 07:27. Patient's care was discussed, and care was transferred from to Fausto Camilo DO. Coding Level of Care Code ED Chairman & Chief Executive Officer for Chg Fwd Exam Comprehensive Documented by User: Naseem Temple DO 10/03/22 03:59 HPI - Psych General: Chief Complaint: Psychiatric Symptoms Stated Complaint: states she feels dehydrated Time Seen by Provider: 10/02/22 15:09 PFSH ED PFSH: Medical History (Updated 10/03/22 @ 15:10 by Fausto Camilo DO) Methamphetamine use Psychiatric care Family History Daughter Diabetes Mother Hypertension Grandfather No problems noted. Grandmother Breast cancer 70's Denies family history of Colon cancer Ovarian cancer Clotting disorder Heart disease Hyperlipidemia Anesthesia complication Bleeding disorder Uterine cancer Thyroid condition Stroke Social History Smoking and tobacco status: current every day smoker cigarettes Packs smoked per day: 0.5 Alcohol intake: never Current gender identity: Female Course Vital Signs: Vital signs: Vital Signs Temperature 98.6 F 10/03/22 06:06 Pulse Rate 90 10/03/22 09:42 Respiratory Rate 16 10/03/22 09:42 Blood Pressure 99/64 10/03/22 09:42 Pulse Oximetry 97 10/03/22 09:42 Oxygen Delivery Me thod 10/03/22 09:42 MDM - Psych Medical Decision Making Patient requesting placement for her suicidal ideations. We do not have any beds available here at [facility] for inpatient psych. Patient be signed out for further management to Dr. Temple while we look for patient placement 3:50 AM: Patient has remained medically stable. She was checked out to me by the previous physician at shift change. Laboratory is not remarkable. COVID rapid is negative. Urinalysis is negative. She has been calm and cooperative here. We have called multiple facilities across the [facility], as we do not have any beds available at our facility currently. No beds are available for this patient. She will be held in the ER until such appropriate bed becomes available. She will be checked out to the oncoming physician at shift change pending placement. Lab Data 10/02/22 16:22 10/02/22 16:22 Laboratory Results WBC 6.7 10^3/uL (4.0-10.0) 10/02/22 16:22 Corrected WBC Cancelled 10/02/22 16:02 RBC 4.83 10^6/uL (4.1-5.3) 10/02/22 16:22 Hgb 14.7 g/dL (11.5-15.3) 10/02/22 16:22 Hct 44.1 % (37.0-47.0) 10/02/22 16: MCV 91.3 fl (81-99) 10/02/22 16:22 MCH 30.4 pg (28.0-34.0) 10/02/22 16: MCHC 33.3 g/dL (30.0-36.0) 10/02/22 16: RDW 12.0 % (12.1-15.1) L 10/02/22 16: Plt Count 362 10^3/cmm (130-400) 10/02/22 16: MPV 10.2 fL (7.4-10.4) 10/02/22 16:22 Gran % Cancelled 10/02/22 16:02 Neut % (Auto) 44.0 % 10/02/22 16: Lymph % (Auto) 42.9 % 10/02/22 16: [place] % (Auto) 5.4 % 10/02/22 16: Eos % (Auto) 6.3 % 10/02/22 16: Baso % (Auto) 1.2 % 10/02/22: Neut # (Auto) 2.93 10^3/uL (1.8-7.7) 10/02/22 16: Lymph # (Auto) 2.9 10^3/uL (0.8-4.8) 10/02/22 16: [place] # (Auto) 0.4 10^3/uL (0.2-0.9) 10/02/22 16: Eos # (Auto) 0.4 10^3/uL (0.0-0.8) 10/02/22 16: Baso # (Auto) 0.1 10^3/uL (0.0-0.1) 10/02/22 16:22 Absolute Gran (auto) Cancelled 10/02/22 16:02 Nucleated RBC % (auto) 0 % 10/02/22 16: Nucleated RBCs # 0.0 /100WBC 10/02/22 16:22 Sodium 137 mmol/L (136-145) 10/02/22 16:22 Potassium 3.7 mmol/L (3.5-5.1) 10/02/22 16:22 Chloride 101 mmol/L (98-107) 10/02/22 16: Carbon Dioxide 28 mmol/L (22-29) 10/02/22 16:22 Anion Gap 11.7 (5-19) 10/02/22 16: BUN 10 mg/dL (6-20) 10/02/22 16: Creatinine 0.7 mg/dL (0.5-0.9) 10/02/22 16: GFR Calculation 95.2 mL/min (90-130) 10/02/22 16: Glucose 100 mg/dL (65-115) 10/02/22 16: Calculated Osmolality 283 mOsm/kg (285-295) L 10/02/22 16: Calcium 9.5 mg/dL (8.5-10.5) 10/02/22 16: Total Bilirubin 0.7 mg/dL (0.15-1.2) 10/02/22 16: AST 14 U/L (0-32) 10/02/22 16: ALT 10 U/L (0-33) 10/02/22 16: Alkaline Phosphatase 47 U/L (35-105) 10/02/22 16: Total Protein 7.0 g/dL (6.6-8.7) 10/02/22 16: Albumin 4.4 g/dL (3.5-5.2) 10/02/22 16: Globulin 2.6 g/dL (1.3-4.6) 10/02/22 16: TSH 0.58 uIU/mL (0.27-4.20) 10/02/22 16: HCG, Qual Negative (Negative) 10/02/22 15: Urine Color Yellow (Yellow) 10/02/22: Urine Appearance Clear (CLEAR) 10/02/22 15: Urine pH 6 (5-7) 10/02/22 15: Ur Specific [place] 1.005 (1.005-1.030) 10/02/22 15: Urine Protein Neg (Negative) 10/02/22 15: Urine Glucose (UA) Norm (Normal) 10/02/22 15: Urine Ketones Negative (Negative) 10/02/22 15: Urine Blood Neg (Negative) 10/02/22 15: Urine Nitrate Negative (Negative) 10/02/22 15: Urine Bilirubin Neg (Negative) 10/02/22 15: Urine Urobilinogen Norm mg/dL (Negative) 10/02/22 15:29 Ur Leukocyte Esterase Negative (Negative) 10/02/22 15:29 Salicylates 0.5 mg/dL (3-10) L 10/02/22 16:22 Urine Opiates Screen Negative ng/mL (Negative) 10/02/22 15:29 Acetaminophen < 5.0 ug/mL (10-30) L 10/02/22 16:22 Ur Barbiturates Screen Negative ng/mL (Negative) 10/02/22 15:29 Ur Phencyclidine Scrn Negative ng/mL (Negative) 10/02/22 15:29 Ur Amphetamines Screen Positive ng/mL (Negative) H 10/02/22 15:29 U Benzodiazepines Scrn Negative ng/mL (Negative) 10/02/22 15:29 Urine Cocaine Screen Negative ng/mL (Negative) 10/02/22 15:29 U Marijuana (THC) Screen Negative ng/mL (Negative) 10/02/22 15:29 Ethyl Alcohol < 10 mg/dL (0-10) 10/02/22 16:22 SARS-CoV-2 Ag (Rapid) negative (Negative) 10/02/22 17:45 Discharge Plan Discharge Patient Disposition: Admitted As Inpatient Clinical Impression: Suicidal ideation, Major depressive disorder Condition: Stable Prescriptions: No Action No Known Home Medications Referrals: Reuben Mccain DO [Primary Care Provider] - Sign Out Sign Out Data: Patient Sign Out occurred on 10/03/22 at 07:27. Patient's care was discussed, and care was transferred from to Fausto Camilo DO. Coding Level of Care Code ED Chairman & Chief Executive Officer for Chg Fwd Exam Comprehensive Documented by User: Fausto Camilo DO 10/03/22 15:10 HPI - Psych General: Chief Complaint: Psychiatric Symptoms Stated Complaint: states she feels dehydrated Time Seen by Provider: 10/02/22 15:09 PFSH ED PFSH: Medical History (Updated 10/03/22 @ 15:10 by Fausto Camilo DO) Methamphetamine use Psychiatric care Family History Daughter Diabetes Mother Hypertension Grandfather No problems noted. Grandmother Breast cancer 70's Denies family history of Colon cancer Ovarian cancer Clotting disorder Heart disease Hyperlipidemia Anesthesia complication Bleeding disorder Uterine cancer Thyroid condition Stroke Social History Smoking and tobacco status: current every day smoker cigarettes Packs smoked per day: 0.5 Alcohol intake: never Current gender identity: Female Course Vital Signs: Vital signs: Vital Signs Temperature 98.6 F 10/03/22 06:06 Pulse Rate 90 10/03/22 09:42 Respiratory Rate 16 10/03/22 09:42 Blood Pressure 99/64 10/03/22 09:42 Pulse Oximetry 97 10/03/22 09:42 Oxygen Delivery Me thod 10/03/22 09:42 MDM - Psych Medical Decision Making Patient requesting placement for her suicidal ideations. We do not have any beds available here at [facility] for inpatient psych. Patient be signed out for further management to Dr. Temple while we look for patient placement 3:50 AM: Patient has remained medically stable. She was checked out to me by the previous physician at shift change. Laboratory is not remarkable. COVID ra pid is negative. Urinalysis is negative. She has been calm and cooperative here. We have called multiple facilities across the [facility], as we do not have any beds available at our facility currently. No beds are available for this patient. She will be held in the ER until such appropriate bed becomes available. She will be checked out to the oncoming physician at shift change pending placement. 10/03/2022 3:09 PM care assumed at change of shift patient has been stable with been no behavioral issues throughout the shift so far. Bed has become available at our facility. We had been looking for a bed to transfer discussed with Dr. Andres he is willing to accept the patient orders written. Lab Data 10/02/22 16:22 10/02/22 16:22 Laboratory Results WBC 6.7 10^3/uL (4.0-10.0) 10/02/22 16:22 Corrected WBC Cancelled 10/02/22 16:02 RBC 4.83 10^6/uL (4.1-5.3) 10/02/22 16: Hgb 14.7 g/dL (11.5-15.3) 10/02/22 16: Hct 44.1 % (37.0-47.0) 10/02/22 16: MCV 91.3 fl (81-99) 10/02/22 16: MCH 30.4 pg (28.0-34.0) 10/02/22 16: MCHC 33.3 g/dL (30.0-36.0) 10/02/22 16: RDW 12.0 % (12.1-15.1) L 10/02/22 16: Plt Count 362 10^3/cmm (130-400) 10/02/22: MPV 10.2 fL (7.4-10.4) 10/02/22 16: Gran % Cancelled 10/02/22 16:02 Neut % (Auto) 44.0 % 10/02/22: Lymph % (Auto) 42.9 % 10/02/22: [place] % (Auto) 5.4 % 10/02/22 16: Eos % (Auto) 6.3 % 10/02/22: Baso % (Auto) 1.2 % 10/02/22: Neut # (Auto) 2.93 10^3/uL (1.8-7.7) 10/02/22: Lymph # (Auto) 2.9 10^3/uL (0.8-4.8) 10/02/22: [place] # (Auto) 0.4 10^3/uL (0.2-0.9) 10/02/22: Eos # (Auto) 0.4 10^3/uL (0.0-0.8) 10/02/22: Baso # (Auto) 0.1 10^3/uL (0.0-0.1) 10/02/22: Absolute Gran (auto) Cancelled 10/02/22 16:02 Nucleated RBC % (auto) 0 % 10/02/22: Nucleated RBCs # 0.0 /100WBC 10/02/22 16: Sodium 137 mmol/L (136-145) 10/02/22 16: Potassium 3.7 mmol/L (3.5-5.1) 10/02/22 16: Chloride 101 mmol/L (98-107) 10/02/22: Carbon Dioxide 28 mmol/L (22-29) 10/02/22 16: Anion Gap 11.7 (5-19) 10/02/22 16: BUN 10 mg/dL (6-20) 10/02/22: Creatinine 0.7 mg/dL (0.5-0.9) 10/02/22 16: GFR Calculation 95.2 mL/min (90-130) 10/02/22: Glucose 100 mg/dL (65-115) 10/02/22: Calculated Osmolality 283 mOsm/kg (285-295) L 10/02/22: Calcium 9.5 mg/dL (8.5-10.5) 10/02/22: Total Bilirubin 0.7 mg/dL (0.15-1.2) 10/02/22: AST 14 U/L (0-32) 10/02/22: ALT 10 U/L (0-33) 10/02/22: Alkaline Phosphatase 47 U/L (35-105) 10/02/22 16: Total Protein 7.0 g/dL (6.6-8.7) 10/02/22 16: Albumin 4.4 g/dL (3.5-5.2) 10/02/22: Globulin 2.6 g/dL (1.3-4.6) 10/02/22: TSH 0.58 uIU/mL (0.27-4.20) 10/02/22 16: HCG, Qual Negative (Negative) 10/02/22: Urine Color Yellow (Yellow) 10/02/22: Urine Appearance Clear (CLEAR) 10/02/22: Urine pH 6 (5-7) 10/02/22: Ur Specific [place] 1.005 (1.005-1.030) 10/02/22: Urine Protein Neg (Negative) 10/02/22 Urine Glucose (UA) Norm (Normal) 11/20/22 15:29 Urine Ketones Negative (Negative) 10/02/22 15:29 Urine Blood Neg (Negative) 10/02/22 15:29 Urine Nitrate Negative (Negative) 10/02/22 15:29 Urine Bilirubin Neg (Negative) 10/02/22 15:29 Urine Urobilinogen Norm mg/dL (Negative) 10/02/22 15:29 Ur Leukocyte Esterase Negative (Negative) 10/02/22 15:29 Salicylates 0.5 mg/dL (3-10) L 10/02/22 16:22 Urine Opiates Screen Negative ng/mL (Negative) 10/02/22 15:29 Acetaminophen < 5.0 ug/mL (10-30) L 10/02/22 16:22 Ur Barbiturates Screen Negative ng/mL (Negative) 10/02/22 15:29 Ur Phencyclidine Scrn Negative ng/mL (Negative) 10/02/22 15:29 Ur Amphetamines Screen Positive ng/mL (Negative) H 10/02/22 15:29 U Benzodiazepines Scrn Negative ng/mL (Negative) 10/02/22 15:29 Urine Cocaine Screen Negative ng/mL (Negative) 10/02/22 15:29 U Marijuana (THC) Screen Negative ng/mL (Negative) 10/02/22 15:29 Ethyl Alcohol < 10 mg/dL (0-10) 10/02/22 16:22 SARS-CoV-2 Ag (Rapid) negative (Negative) 10/02/22 17:45 Discharge Plan Discharge Patient Disposition: Admitted As Inpatient Clinical Impression: Suicidal ideation, Major depressive disorder Condition: Stable Prescriptions: No Action No Known Home Medications Referrals: Reuben Mccain DO [Primary Care Provider] - Sign Out Sign Out Data: Patient Sign Out occurred on 10/03/22 at 07:27. Patient's care was discussed, and care was transferred from to Fausto Camilo DO. Coding Level of Care Code ED Chairman & Chief Executive Officer for Chg Fwd Exam Comprehensive
--- NOTE | 2022-10-02 15:27 | ECG_ITS ---
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 Measurements Intervals [place] Rate: 86 P: 87 [place]: 127 QRS: 91 QRSD: 84 T: 73 QT: 384 QTc: 459 Interpretive Statements SINUS RHYTHM BORDERLINE RIGHT AXIS DEVIATION [QRS AXIS > 90] Compared to ECG 07/31/2022 15:23:09 T-wave abnormality no longer present Electronically Signed On 10-03-2022 18:17:57 DENTAL RESIDENT by Skyler Tellez M.D. [id number]
[2022-10-02 15:40] LABS: HCG Qualitative Urine. Negative (Negative)
[2022-10-02 16:01] LABS: Add Urine Microscopic? NO; Charge for UA Resulting for Rev
[2022-10-02 16:06] LABS: Bilirubin Urine Neg (Negative); Blood Urine Neg (Negative); Glucose Urine UA Norm (Normal); Ketones Urine Negative (Negative); Leukocyte Esterase Urine Negative (Negative); Nitrate Urine Negative (Negative); Protein Urine Neg (Negative); Specific Gravity, Urine 1.005 (1.005-1.030); Urine Appearance Clear (CLEAR); Urine Color Yellow (Yellow); Urobilinogen Urine Norm (Negative); pH Urine 6 (5-7)
[2022-10-02 16:15] LABS: Amphetamines Screen Urine Positive (Negative); Barbiturates Screen Urine Negative (Negative); Benzodiazepines Screen Urine Negative (Negative); Cocaine Screen Urine Negative (Negative); Opiate Screen Urine Negative (Negative); PCP Screen Urine Negative (Negative); THC Screen Urine Negative (Negative)
[2022-10-02 16:33] LABS: Basophils # 0.1 10^3/uL (0.0-0.1); Basophils % 1.2 %; Eosinophils # 0.4 10^3/uL (0.0-0.8); Eosinophils % 6.3 %; Hematocrit 44.1 % (37.0-47.0); Hemoglobin 14.7 g/dL (11.5-15.3); Lymphocytes # 2.9 10^3/uL (0.8-4.8); Lymphocytes % 42.9 %; Mean Corpuscular HGB Conc 33.3 g/dL (30.0-36.0); Mean Corpuscular Hemoglobin 30.4 pg (28.0-34.0); Mean Corpuscular Volume 91.3 fl (81-99); Mean Platelet Volume 10.2 fL (7.4-10.4); Monocytes # 0.4 10^3/uL (0.2-0.9); Monocytes % 5.4 %; Neutrophils # 2.93 10^3/uL (1.8-7.7); Nucleated Red Blood Cells % 0 %; Platelet Count 362 10^3/cmm (130-400); Red Blood Count 4.83 10^6/uL (4.1-5.3); White Blood Count 6.7 10^3/uL (4.0-10.0)
[2022-10-02] MEDS: sodium chloride 0.9% 1,000 ML 999 ML IV (16:39)
[2022-10-02 17:09] LABS: Alanine Aminotransferase 10 U/L (0-33); Albumin Level 4.4 g/dL (3.5-5.2); Alkaline Phosphatase 47 U/L (35-105); Anion Gap 11.7 (5-19); Aspartate Amino Transferase 14 U/L (0-32); Blood Urea Nitrogen 10 mg/dL (6-20); Calcium 9.5 mg/dL (8.5-10.5); Carbon Dioxide 28 mmol/L (22-29); Chloride 101 mmol/L (98-107); Globulin 2.6 g/dL (1.3-4.6); Glomerular Filtration Rate 95.2 mL/min (90-130); Glucose 100 mg/dL (65-115); Osmolality Calculated 283 mOsm/kg (285-295); Potassium 3.7 mmol/L (3.5-5.1); Salicylate 0.5 mg/dL (3-10); Sodium 137 mmol/L (136-145); Thyroid Stimulating Hormone 0.58 uIU/mL (0.27-4.20); Total Bilirubin 0.7 mg/dL (0.15-1.2)
[2022-10-02 17:13] LABS: Acetaminophen < 5.0 ug/mL (10-30); Alcohol Level < 10 mg/dL (0-10)
[2022-10-02 18:12] VITALS: BP 110/83; PULSE 75; O2SAT 100
[2022-10-02 18:14] LABS: SARS Covid-2 Antigen negative (Negative)
[2022-10-02] MEDS: nicotine 21 mg Patch 1 PATCH TRANSDERMA (19:32)
[2022-10-03 06:06] VITALS: BP 110/68; PULSE 92; TEMP 37; O2SAT 97
[2022-10-03] MEDS: LORazepam 2 mg Tablet PO ×2 (08:23→16:30)
--- NOTE | 2022-10-03 09:41 | PC.NURSE ---
pt resting in bed, pt requesting a sandwich. bagged lunch brought to pt. pt remains in line of sight of anisa
[2022-10-03 09:42] VITALS: BP 99/64; PULSE 90; RESP 16; O2SAT 97
--- NOTE | 2022-10-03 15:02 | PC.NURSE ---
additional snacks brought to pt per request
--- NOTE | 2022-10-03 15:56 | PC.NURSE ---
Report called to EVENS Devi on NPU
[2022-10-03 16:08] VITALS: BP 88/66; PULSE 79; RESP 16; TEMP 36.6; O2SAT 96
[2022-10-03 16:17] VITALS: PULSE 110; RESP 18; O2SAT 95
[2022-10-03] MEDS: haloperidol 5 mg Tablet PO (16:30)
[2022-10-03] MEDS: diphenhydrAMINE 50 mg Capsule PO (16:30)
[2022-10-03 20:02] VITALS: BP 90/51; PULSE 88; RESP 17; TEMP 36.6; O2SAT 93
[2022-10-04 06:00] VITALS: BP 100/54; PULSE 67; RESP 17; TEMP 36.6; O2SAT 95
--- NOTE | 2022-10-04 13:12 | W.PM.NPUH&PS ---
Providers/Chief Complaint Admitting Physician: Carlos Layton MD Primary Care Provider: Reuben Mccain DO Chief Complaint: suicidal ideation. HPI NPU History of Present Illness Bernice Saenz is a 36 year old female with a history of multiple inpatient psychiatric hospitalizations at the [facility], who was initially evaluated in the emergency department [facility] with complaints of being dehydrated. She reported vague suicidal thoughts and reported that she was uncertain as to how she would do it. The patient was admitted to the neuropsychiatric unit for further evaluation and treatment. The patient was confused and was unable to provide a clear history today other than stating that she wished to continue to sleep. She had been evaluated in outpatient clinic at the [facility] in [place] approximately 1 week ago. The patient at that time had reported that she was forced by her hydrographical technical officer to be evaluated as she had failed a urine test there. The patient had revealed that she had been depressed intermittently over the past few months and she had been recently suicidal and sent to a psychiatric hospital approximately 1 month ago. She reported that she is been having problems with sleep and that she discontinued her antipsychotic. Since that time she reports that she had been more irritable. She reports that she had been feeling restless and on edge. The patient had tested positive to for methamphetamines on admission to the [facility]. The patient had endorsed feelings of hopelessness and reported depressed mood with several days of feeling fatigued and poor appetite reported. She had endorsed having frequent thoughts of hurting herself. Inpatient psychiatric history: She has multiple hospitalizations with most recent psychiatric hospitalization 1 month ago in [facility] for depression Outpatient psychiatric history: She has a history of past follow-up at the [facility] for treatment of depression and amphetamine abuse. Current medications: none Medical history:none Surgical History: Tonsillectomy ,ear tube placement ,gallbladder removal Family psychiatric Hx: none Allergies: hydrocodone Substance Abuse history: History of active methamphetamine use since the age of 19. , hx of alcohol abuse, reports monthly use currently. Social History: Patient is currently and lives in [place] [facility] [facility] with her mother brother and cousin. She is currently unemployed. She graduated from high school. She describes her self is Yazidi and a heterosexual. 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 She reports a history of emotional abuse. She reports having 3 children who currently live with her grandparents. Previous Hospitalization in February,: History of Present Illness Bernice Saenz is a 36 year old female admitted to our emergency department with the following report: 36-year-old presents with suicidal ideation.? She denies any previous attempts to hurt herself.? She does not have a concrete plan.? Denies any hallucinations or delusions.? Denies any desire to hurt anyone else.? Denies any illicit substance use. She is admitted for definitive treatment of these issues.? She says that she has been having suicidal ideation for about 1 year.? It was more real and intense yesterday.? She decided to get help.? She said that she would like some help with sleep, anxiety and to level out her hormones.? She said that she was aware of her age and that the change of life is coming.? She would like to take something to delay that.? She refused any medication other than BuSpar when she was here last time.? She said she would be willing to take an antidepressant now.? She also has sweaty palms and would like something to help that.? We talked about the alternatives and she decided that Paxil would be her choice.? She also tried some trazodone 50 mg last night and it helped somewhat but she would like to try 100 mg.? She says that she does not get much sleep.? She generally takes Benadryl uvib-oih-uoczaay 1 tablet at night.? It is assumed that is 25 mg.? She says that helped some but not much.? She usually takes ibuprofen and aspirin along with it.? She has a fair amount of anxiety.? She gets very distracted and is overwhelmed when she is shopping at [email or web address] She does not have any difficulty standing in line to pay.? She used to be somewhat obsessive-compulsive but it is better now.? She does have a thing about certain numbers.? She was adamant that she has not used methamphetamine since she has been on probation.? She has been tested and has been negative.? She does not know exactly how long she has been on probation.? She was positive for methamphetamine on the last admission but it was not tested in the emergency department yesterday. Below is the discharge summary from her last admission. 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 Qualified Code(s):?F24 - Shared psychotic disorder (3) Methamphetamine use: ?Status:?Acute (4) Depression: ?Status:?Resolved Meds NPU Home Medications Medication Instructions Recorded Confirmed Last Taken Type No Known Home Medications 07/31/22 10/02/22 Unknown History Allergies Allergy/AdvReac Type Severity Reaction Status Date / Time hydrocodone Allergy Severe headaches Verified 09/27/22 13:14 PFSH NPU PFSH: Medical History (Updated 10/04/22 @ 13:51 by Carlos Layton MD) Methamphetamine use Psychiatric care Family History Daughter Diabetes Mother Hypertension Grandfather No problems noted. Grandmother Breast cancer 70's Denies family history of Colon cancer Ovarian cancer Clotting disorder Heart disease Hyperlipidemia Anesthesia complication Bleeding disorder Uterine cancer Thyroid condition Stroke Social History Smoking and tobacco status: current every day smoker cigarettes Packs smoked per day: 0.5 Alcohol intake: never Current gender identity: Female Mental Status Exam MSE Comments: This is a slender white female in hospital scrubs with poor grooming and poor eye contact. She was not cooperative throughout much of the examination. Speech was slurred with normal volume. Her mood was described as depressed. Her affect was restricted in range and mood-congruent. Thought process was disorganized. Thought content: She endorsed suicidal ideation with no active plan. She did appear actively paranoid. She did appear to be responding to internal stimuli. Attention and concentration were intact and memory appeared reliable but none were formally tested. She is alert and oriented x3. Insight and judgment were impaired. impulse control is feeble. Vitals/I&O/Wt Last Vital Signs Temp 97.8 F 10/04/22 06:00 Pulse 67 10/04/22 06:00 Resp 17 10/04/22 06:00 BP 100/54 10/04/22 06:00 Pulse Ox 95 10/04/22 06:00 O2 Del Method 10/03/22 16:09 Weight last 48 hrs Weight 59.874 kg Data NPU 10/02/22 16:22 10/02/22 16:22 A&P Assessment and plan (1) Major depressive disorder: (2) Suicidal ideation: (3) Methamphetamine use: Plan The patient is a 36-year-old white female with methamphetamine abuse with active legal issues currently endorsing suicidal ideation with no current plan. She would likely benefit from restarting her psychiatric medications at this time. 1.? Continue current medications, attempt to gather collateral information. 2.? Encourage individual, group and milieu therapy 3.? Continue q-15 minute check for safety 4.? Recommend sober living treatment at the highest level of care to which the patient is willing to commit. Involuntary Hold Information 96 Hour Hold: 96 Hour Involuntary Admission: No 96 Hour Hold Ending Date: 02/11/21 96 Hour Hold Ending Time: 11:50 Attestations NPU Medical Necessity Statement*: Inpatient hospitalization is medically necessary and the clinically appropriate intervention at this time. We will monitor medications and make changes as indicated. Patient will be in the hospital for over two midnights. Likely length of stay is three to five days. Coding Level of Care Code New Pt Acute Family Welfare Social Work Professor for Bandar Hicks Patient Type New History Problem Focused Exam Problem Focused Medical Decision Making Straight Forward Diagnoses Major depressive disorder F32.9 Suicidal ideation R45.851 Methamphetamine use F15.10
[2022-10-04 14:00] VITALS: BP 113/68; PULSE 101; RESP 20; TEMP 36.8; O2SAT 97
[2022-10-04 20:49] VITALS: BP 80/57; PULSE 70; RESP 16; O2SAT 98
[2022-10-05 06:00] VITALS: RESP 18
[2022-10-05] MEDS: nicotine 21 mg Patch 1 PATCH TRANSDERMA (11:01)
[2022-10-05 14:00] VITALS: BP 92/69; PULSE 82; RESP 20; TEMP 36.5; O2SAT 98
[2022-10-05] MEDS: hyDROXYzine 25 mg Capsule 50 MG PO (14:56)
[2022-10-05] MEDS: buPROPion XL (24 HR) 150 mg Tablet PO (14:56)
--- NOTE | 2022-10-05 15:38 | P.NPUPN_ITS ---
Subjective NPU Subjective: Is a 37-year-old white female with a history of methamphetamine abuse and psychotic symptoms along with depression admitted with suicidal ideation. The patient had acknowledged having depressed mood but states that she was feeling much improved today. She had reported having dizziness and li ghtheadedness on Risperdal that had been prescribed at a previous hospitalization last month for depression. Patient denied any auditory or visual hallucinations currently. She had been able to get up and attend groups briefly but still reported having struggles with feeling tired. Mental Status Exam MSE Comments: This is a slender white female in hospital scrubs with poor grooming and poor eye contact. She was not cooperative throughout much of the examination. Speech was slurred with normal volume. Her mood was described as better. Her affect was restricted in range and mood incongruent. Thought process was disorganized. Thought content: She endorsed no suicidal ideation with no active plan and no homicidal ideation. She did appear to be responding to internal stimuli. Attention and concentration were intact and memory appeared reliable but none were formally tested. She is alert and oriented x3. Insight and judgment were impaired. impulse control is feeble. Vitals/I&O/Wt Last Vital Signs Temp 97.7 F 10/05/22 14:00 Pulse 82 10/05/22 14:00 Resp 20 H 10/05/22 14:00 BP 92/69 10/05/22 14:00 Pulse Ox 98 10/05/22 14:00 O2 Del Method 10/03/22 16:09 Data NPU 10/02/22 16:22 10/02/22 16:22 A&P Assessment and plan (1) Major depressive disorder: (2) Suicidal ideation: (3) Methamphetamine use: Plan The patient is a 36-year-old white female with methamphetamine abuse with active legal issues currently endorsing suicidal ideation with no current plan. 1.? Start Wellbutrin xl 150mg in am to target depression, attempt to gather collateral information. 2.? Encourage individual, group and milieu therapy 3.? Continue q-15 minute check for safety 4.? Recommend sober living treatment at the highest level of care to which the patient is willing to commit. 5. Referral for substance abuse counseling =likely to benefit from drug and alcohol treatment facility. Involuntary Hold Information 96 Hour Hold: 96 Hour Involuntary Admission: No 96 Hour Hold Ending Date: 02/11/21 96 Hour Hold Ending Time: 11:50 Attestations NPU Medical Necessity Statement*: Inpatient hospitalization is medically necessary and the clinically appropriate intervention at this time. We will monitor medications and make changes as indicated. Her likely length of stay is three to five days. Coding Level of Care Code Established Pt Acute Community Engagement Coordinator for [facility] Patient Type Established History Problem Focused Exam Problem Focused Medical Decision Making Straight Forward Diagnoses Major depressive disorder F32.9 Suicidal ideation R45.851 Methamphetamine use F15.10
[2022-10-05] MEDS: OLANZapine 5 mg ODT PO (16:23)
[2022-10-05 22:00] VITALS: BP 101/65; PULSE 84; RESP 15; TEMP 36.7; O2SAT 97
[2022-10-06 06:00] VITALS: BP 100/59; PULSE 72; RESP 16; TEMP 37; O2SAT 98
[2022-10-06] MEDS: buPROPion XL (24 HR) 150 mg Tablet PO (08:00)
[2022-10-06] MEDS: hyDROXYzine 25 mg Capsule 50 MG PO (08:00)
--- NOTE | 2022-10-06 10:33 | W.PM.NPUDCS ---
Diagnoses at Discharge Discharge Diagnosis (1) Major depressive disorder: Status: Acute (2) Suicidal ideation: Status: Acute (3) Methamphetamine use: Status: Acute Reason for Visit Reason for Visit: suicidal ideation. Brief History: History of Present Illness Bernice Saenz is a 36 year old female with a history of multiple inpatient psychiatric hospitalizations at the [facility], who was initially evaluated in the emergency department [facility] with complaints of being dehydrated.? She reported vague suicidal thoughts and reported that she was uncertain as to how she would do it.? The patient was admitted to the neuropsychiatric unit for further evaluation and treatment.? The patient was confused and was unable to provide a clear history today other than stating that she wished to continue to sleep.? She had been evaluated in outpatient clinic at the behavioral health clinic in [place] approximately 1 week ago.? The patient at that time had reported that she was forced by her correctional probation officer to be evaluated as she had failed a urine test there.? The patient had revealed that she had been depressed intermittently over the past few months and she had been recently suicidal and sent to a psychiatric hospital approximately 1 month ago.? She reported that she is been having problems with sleep and that? she? discontinued her antipsychotic.? Since that time she reports that she had been more irritable.? She reports that she had been feeling restless and on edge.? The patient had tested positive to for methamphetamines on admission to the [facility].? The patient had endorsed feelings of hopelessness and reported depressed mood with several days of feeling fatigued and poor appetite reported. She had endorsed having frequent thoughts of hurting herself. Inpatient psychiatric history: She has multiple hospitalizations with most recent psychiatric hospitalization [address] [facility] for depression Outpatient psychiatric history: She has a history of past follow-up at the [facility] for treatment of depression and amphetamine abuse. Current medications: none Medical history:none Surgical History: Tonsillectomy ,ear tube placement ,gallbladder removal Family psychiatric Hx: none Allergies: hydrocodone Substance Abuse history: History of active methamphetamine use since the age of 19. , hx of alcohol abuse, reports monthly use currently. Social History: Patient is currently and lives in [place] [facility] with her mother brother and cousin.? She is currently unemployed.? She graduated from high school.? She describes her self is Hindu and a heterosexual.? She reports a history of legal issues that she currently has a correctional probation officer with no history of experience. She reports a history of emotional abuse.? She reports having 3 children who currently live with her grandparents.? Previous Hospitalization in February,: History of Present Illness Bernice Saenz is a 36 year old female admitted to our emergency department with the following report: 36-year-old presents with suicidal ideation.? She denies any previous attempts to hurt herself.? She does not have a concrete plan.? Denies any hallucinations or delusions.? Denies any desire to hurt anyone else.? Denies any illicit substance use. She is admitted for definitive treatment of these issues.? She says that she has been having suicidal ideation for about 1 year.? It was more real and intense yesterday.? She decided to get help.? She said that she would like some help with sleep, anxiety and to level out her hormones.? She said that she was aware of her age and that the change of life is coming.? She would like to take something to delay that.? She refused any medication other than BuSpar when she was here last time.? She said she would be willing to take an antidepressant now.? She also has sweaty palms and would like something to help that.? We talked about the alternatives and she decided that Paxil would be her choice.? She also tried some trazodone 50 mg last night and it helped somewhat but she would like to try 100 mg.? She says that she does not get much sleep.? She generally takes Benadryl crko-ohg-bsytyot 1 tablet at night.? It is assumed that is 25 mg.? She says that helped some but not much.? She usually takes ibuprofen and aspirin along with it.? She has a fair amount of anxiety.? She gets very distracted and is overwhelmed when she is shopping at [employer].? She does not have any difficulty standing in line to pay.? She used to be somewhat obsessive-compulsive but it is better now.? She does have a thing about certain numbers.? She was adamant that she has not used methamphetamine since she has been on probation.? She has been tested and has been negative.? She does not know exactly how long she has been on probation.? She was positive for methamphetamine on the last admission but it was not tested in the emergency department yesterday. . Hospital Course Hospital Course Discharge Summary: During the hospitalization, patient had routine laboratory studies which were within normal limits except for few outliers.? Additionally there was a general medical evaluation which was also within normal limits and revealed no new acute processes. Wellbutrin xl 150mg was initiated to target depression with no side effects noted. At the time of discharge, lethality was denied and psychosis was resolving.? Mood and anxiety were well managed.? Patient endorsed a plan to avoid all drugs of abuse and follow-up with the aftercare recommendations of the treatment team.? Patient was evaluated and deemed to be absent credible lethality, and had achieved the maximum benefit from an inpatient hospitalization, so was discharged. Involuntary Hold Information 96 Hour Hold: 96 Hour Involuntary Admission: No 96 Hour Hold Ending Date: 02/11/21 96 Hour Hold Ending Time: 11:50 Mental Status Exam MSE Comments: This is a slender white female in hospital scrubs with improved grooming and good eye contact. She was cooperative throughout much of the examination. Speech was normal in rate with normal volume. Her mood was described as better. Her affect was brighter. Thought process was linear and logical. Thought content: She endorsed no suicidal ideation with no active plan and no homicidal ideation. She did appear to be responding to internal stimuli. Attention and concentration were intact and memory appeared reliable but none were formally tested. She is alert and oriented x3. Insight and judgment were improving. impulse control appear improved. Discharge Data Studies Completed and Pending: Laboratory Results WBC 6.7 10^3/uL (4.0- 10.0) 10/02/22 16:22 Corrected WBC Cancelled 10/02/22 16:02 RBC 4.83 10^6/uL (4.1 -5.3) 10/02/22 16:22 Hgb 14.7 g/dL (11.5-1 5.3) 10/02/22 16: Hct 44.1 % (37.0-47.0 ) 10/02/22 16:22 MCV 91.3 fl (81-99) 10/02/22 16:22 MCH 30.4 pg (28.0-34. 0) 10/02/22 16: MCHC 33.3 g/dL (30.0-3 6.0) 10/02/22 16:22 RDW 12.0 % (12.1-15.1 ) L 10/02/22 16: Plt Count 362 10^3/cmm (130 -400) 10/02/22 16: MPV 10.2 fL (7.4-10.4 ) 10/02/22 16:22 Gran % Cancelled 10/02/22 16:02 Neut % (Auto) 44.0 % 10/02/22 16: Lymph % (Auto) 42.9 % 10/02/22 16:22 [place] % (Auto) 5.4 % 10/02/22 16: Eos % (Auto) 6.3 % 10/02/22 16: Baso % (Auto) 1.2 % 10/02/22: Neut # (Auto) 2.93 10^3/uL (1.8 -7.7) 10/02/22 16: Lymph # (Auto) 2.9 10^3/uL (0.8- 4.8) 10/02/22 16: [place] # (Auto) 0.4 10^3/uL (0.2- 0.9) 10/02/22 16: Eos # (Auto) 0.4 10^3/uL (0.0- 0.8) 10/02/22 16: Baso # (Auto) 0.1 10^3/uL (0.0- 0.1) 10/02/22 16:22 Absolute Gran (aut o) Cancelled 10/02/22 16:02 Nucleated RBC % (a uto) 0 % 10/02/22 16: Nucleated RBCs # 0.0 /100WBC 10/02/22 16:22 Sodium 137 mmol/L (136-1 45) 10/02/22 16:22 Potassium 3.7 mmol/L (3.5-5 .1) 10/02/22 16: Chloride 101 mmol/L (98-10 7) 10/02/22 16:22 Carbon Dioxide 28 mmol/L (22-29) 10/02/22 16:22 Anion Gap 11.7 (5-19) 10/02/22 16:22 BUN 10 mg/dL (6-20) 10/02/22 16:22 Creatinine 0.7 mg/dL (0.5-0. 9) 10/02/22 16:22 GFR Calculation 95.2 mL/min (90-1 30) 10/02/22 16: Glucose 100 mg/dL (65-115 ) 10/02/22 16:22 Calculated Osmolal ity 283 mOsm/kg (285- 295) L 10/02/22 16: Calcium 9.5 mg/dL (8.5-10 .5) 10/02/22 16: Total Bilirubin 0.7 mg/dL (0.15-1 .2) 10/02/22 16: AST 14 U/L (0-32) 10/02/22 16: ALT 10 U/L (0-33) 10/02/22 16: Alkaline Phosphata se 47 U/L (35-105) 10/02/22 16: Total Protein 7.0 g/dL (6.6-8.7 ) 10/02/22 16: Albumin 4.4 g/dL (3.5-5.2 ) 10/02/22: Globulin 2.6 g/dL (1.3-4.6 ) 10/02/22 16: TSH 0.58 uIU/mL (0.27 -4.20) 10/02/22 16: HCG, Qual Negative (Negati ve) 10/02/22 15:29 Urine Color Yellow (Yellow) 10/02/22 15:29 Urine Appearance Clear (CLEAR) 10/02/22 15:29 Urine pH 6 (5-7) 10/02/22 15:29 Ur Specific Gravit y 1.005 (1.005-1.0 30) 10/02/22 15:29 Urine Protein Neg (Negative) 10/02/22 15:29 Urine Glucose (UA) Norm (Normal) 10/02/22 15:29 Urine Ketones Negative (Negati ve) 10/02/22 15: Urine Blood Neg (Negative) 10/02/22 15: Urine Nitrate Negative (Negati ve) 10/02/22 15:29 Urine Bilirubin Neg (Negative) 10/02/22 15:29 Urine Urobilinogen Norm mg/dL (Negat pilar) 10/02/22 15:29 Ur Leukocyte Sharita ase Negative (Negati ve) 10/02/22 15:29 Salicylates 0.5 mg/dL (3-10) L 10/02/22 16:22 Urine Opiates Scre en Negative ng/mL (N egative) 10/02/22 15:29 Acetaminophen < 5.0 ug/mL (10-3 0) L 10/02/22 16:22 Ur Barbiturates Sc reen Negative ng/mL (N egative) 10/02/22 15:29 Ur Phencyclidine S crn Negative ng/mL (N egative) 10/02/22 15:29 Ur Amphetamines Sc reen Positive ng/mL (N egative) H 10/02/22 15:29 U Benzodiazepines Scrn Negative ng/mL (N egative) 10/02/22 15:29 Urine Cocaine Scre en Negative ng/mL (N egative) 10/02/22 15:29 U Marijuana (THC) Screen Negative ng/mL (N egative) 10/02/22 15:29 Ethyl Alcohol < 10 mg/dL (0-10) 10/02/22 16:22 SARS-CoV-2 Ag (Rap id) negative (Negati ve) 10/02/22 17:45 Vitals: Last Vital Signs Temp 98.6 F 10/06/22 06:00 Pulse 72 10/06/22 06:00 Resp 16 10/06/22 06:00 BP 100/59 10/06/22 06:00 Pulse Ox 98 10/06/22 06:00 O2 Del Method 10/06/22 06:00 Discharge Plan Discharge Patient Disposition: Home Condition: Stable Prescriptions: New trazodone 100 mg Tablet 100 mg PO BEDTIME 30 Days Qty: 30 1RF bupropion HCl 150 mg Tablet Extended Release 24 Hr 150 mg PO DAILY 30 Days Qty: 30 1RF No Action No Known Home Medications Discharge Orders: Discharge Order (Routine); Ordered 10/06/22 Ordered By: Carlos Layton Referrals: Tita Dempsey APRN [Nurse Practitioner] - 11/08/22 ([facility] was informed by e-mail of discharge on . Please call them Monday morning for a sooner follow-up date.) Reuben Mccain, [Primary Care Provider] - Discharge Diet: Usual diet Discharge Activity: Resume usual activity and Increase activity as tolerated Patient Instructions: Generalized Anxiety Disorder, Depression, Methamphetamine Abuse, Opioid Safety Discharge Attestations NPU Time Spent in Discharge Care*: less than 30 min Specific Discharge Activities: Specific discharge activities: educating patient, discussing with immigration case manager/social workers/dc planners, documenting/other paperwork and evaluating patient/reviewing data Coding Level of Care Code Established Pt Acute Chg FW DC note Patient Type Established History Problem Focused Exam Problem Focused Medical Decision Making Straight Forward Diagnoses Major depressive disorder F32.9 Suicidal ideation R45.851 Methamphetamine use F15.10
[2022-10-06 10:36] VITALS: BP 100/59; PULSE 72; RESP 16; TEMP 37; O2SAT 98
== END 2022-10-06 10:45 | disposition home or self-care (01) | DRG 881 ==
LOC: ER 10-03 15:10 → NP 10-03 15:54
PROVIDERS: Student in an Organized Health Care Education/Training Program; Admitting Provider Psychiatry & Neurology Psychiatry; Emergency Provider Family Medicine; PCP Family Medicine; Visit Provider Psychiatry & Neurology Psychiatry
DX: F32.9 Major depressive disorder, single episode, unspecified (principal); R45.851 Suicidal ideations; F15.10 Other stimulant abuse, uncomplicated; F17.210 Nicotine dependence, cigarettes, uncomplicated; Z65.3 Problems related to other legal circumstances
CPT/HCPCS: 36415; 80053; 80306; 80307; 81003; 81025; 84443; 85025; 87426; 93005; 97165; 99285; J7030; Q0163

== ENCOUNTER 2022-12-04 17:07 | Inpatient (IN) | payer BC, SELFPAY ==
[2022-12-04 17:12] VITALS: BP 117/81; PULSE 79; RESP 98; TEMP 36.8; O2SAT 98
--- NOTE | 2022-12-04 17:25 | ED.C_ITS ---
HPI - Psych General: Chief Complaint: Psychiatric Symptoms Stated Complaint: SI evaluation Time Seen by Provider: 12/04/22 17:25 History of Present Illness: Ms. Saenz is a 37-year-old lady with history of depression with psychotic features, anxiety, substance abuse presenting to the emergency department due to hallucinations. She reports auditory hallucinations that have become more disconcerting for her. She noticed that they were telling her to kill herself earlier and she became scared and came to the emergency department. She reports she has not been on psychiatric medications. Intensity symptoms is moderate to severe. She has difficulty characterizing many of her symptoms over the course of illness. No other specific changes in health, exacerbating, or alleviating factors identified. Onset (ago): day(s) History of same: Yes Relieving factors: none Exacerbating factors: none Context: not taking psychiatric medications Associated psychiatric symptoms: depression, suicidal ideation and auditory hallucinations Associated symptoms: Reports delusions If self harm: admits thoughts of self harm Review of Systems General: Reports: 10 or more systems reviewed and unremarkable except in HPI and below PFSH ED PFSH: Medical History Major depressive disorder, recurrent, severe with psychotic symptoms Methamphetamine abuse, episodic Methamphetamine use Psychiatric care Family History Daughter Diabetes Mother Hypertension Grandfather No problems noted. Grandmother Breast cancer 70's Denies family history of Colon cancer Ovarian cancer Clotting disorder Heart disease Hyperlipidemia Anesthesia complication Bleeding disorder Uterine cancer Thyroid condition Stroke Social History Smoking and tobacco status: current every day smoker cigarettes Packs smoked pe r day: 0.5 Alcohol intake: never Current gender identity: Female Female Reproductive History: Date of last menstrual period: 02/20/22 Physical Exam Const: COMMON NORMALS: alert GENERAL APPEARANCE: cooperative and well developed HENMT: COMMON NORMALS: normocephalic and atraumatic HEAD & SCALP: normocephalic and atraumatic THROAT: posterior oropharynx normal Eye: COMMON NORMALS: conjunctivae normal CONJUNCTIVA: Yes conjunctivae normal SCLERA: sclerae normal Neck/C-Spine: COMMON NORMALS: supple GENERAL: Yes trachea midline Resp: COMMON NORMALS: clear to auscultation bilaterally EFFORT & INSPECTION: Yes able to speak in complete sentences AUSCULTATION: clear to auscultation bilaterally Cardio: COMMON NORMALS: regular rate and regular rhythm RATE: regular rate RHYTHM: regular rhythm GI: COMMON NORMALS: Soft to palpation PALPATION: Yes Soft to palpation and No Tenderness to palpation present (GI) Extremity: GENERAL: Yes normal exam except as noted and No edema Neuro: COMMON NORMALS: moves all extremities SENSORIUM/ORIENTATION: Yes alert and No Orientation impaired Psych: MOOD & AFFECT: Yes anxious THOUGHT CONTENT: Yes delusions Course Vital Signs: Vital signs: Vital Signs Temperature 98.2 F 12/07/22 12:03 Pulse Rate 58 L 12/07/22 12:03 Respiratory Rate 18 12/07/22 12:03 Blood Pressure 112/64 12/07/22 12:03 Pulse Oximetry 97 12/07/22 12:03 Oxygen Delivery Me thod 12/06/22 14:00 [facility] - Psych Medical Decision Making 37-year old lady presenting with hallucinations and command hallucinations including suicidal ideation. Patient is nontoxic on exam, cooperative. EKG notable for mild leukocytosis which is nonspecific, hemoglobin and platelet count normal. No significant electrolyte derangement to explain symptoms. No evidence of UTI. Toxic ingestions and UDS are negative. Similar labs to prior. Based on reported clinical history and physical exam findings no indication for imaging at this time. Patient treated with Ativan for anxiolysis, Toradol, GI cocktail, antiemetic. Given severity and worsening symptoms patient quires inpatient management for psychiatric stabilization, assessment, treatment. Based on ED evaluation at this point there is no obvious condition that would preclude the patient from inpatient management psychiatric concerns/symptoms. The results of ED evaluation were discussed with the patient including plan for admission due to requirement for level of care not available if discharged to prevent significant worsening/deterioration. Patient agreeable with plan. Discussed with psychiatry service who was agreeable to admit patient. Medical Records I reviewed the patient's medical records. Lab Data I reviewed the patient's lab results. 12/04/22 18:41 12/04/22 18:41 Laboratory Results WBC 12.4 10^3/uL (4.0-10.0) H 12/04/22 18:41 RBC 5.00 10^6/uL (4.1-5.3) 12/04/22 18:41 Hgb 14.9 g/dL (11.5-15.3) 12/04/22 18:41 Hct 44.8 % (37.0-47.0) 12/04/22 18: MCV 89.6 fl (81-99) 12/04/22 18:41 MCH 29.8 pg (28.0-34.0) 12/04/22 18: MCHC 33.3 g/dL (30.0-36.0) 12/04/22 18: RDW 12.8 % (12.1-15.1) 12/04/22 18:41 Plt Count 387 10^3/cmm (130-400) 12/04/22 18: MPV 10.0 fL (7.4-10.4) 12/04/22 18: Neut % (Auto) 57.6 % 12/04/22 18: Lymph % (Auto) 34.9 % 12/04/22 18: [place] % (Auto) 3.9 % 12/04/22 18: Eos % (Auto) 2.7 % 12/04/22 18:41 Baso % (Auto) 0.7 % 12/04/22 18: Neut # (Auto) 7.17 10^3/uL (1.8-7.7) 12/04/22 18: Lymph # (Auto) 4.3 10^3/uL (0.8-4.8) 12/04/22 18:41 [place] # (Auto) 0.5 10^3/uL (0.2-0.9) 12/04/22 18: Eos # (Auto) 0.3 10^3/uL (0.0-0.8) 12/04/22 18: Baso # (Auto) 0.1 10^3/uL (0.0-0.1) 12/04/22 18: Nucleated RBC % (auto) 0 % 12/04/22 18: Nucleated RBCs # 0.0 /100WBC 12/04/22 18:41 Sodium 137 mmol/L (136-145) 12/04/22 18: Potassium 4.0 mmol/L (3.5-5.1) 12/04/22 18: Chloride 103 mmol/L (98-107) 12/04/22 18:41 Carbon Dioxide 23 mmol/L (22-29) 12/04/22 18:41 Anion Gap 15.0 (5-19) 12/04/22 18:41 BUN 18 mg/dL (6-20) 12/04/22 18:41 Creatinine 0.9 mg/dL (0.5-0.9) 12/04/22 18:41 GFR Calculation 70.8 mL/min (90-130) L 12/04/22 18:41 Glucose 97 mg/dL (65-115) 12/04/22 18:41 Calculated Osmolality 286 mOsm/kg (285-295) 12/04/22 18:41 Calcium 9.2 mg/dL (8.5-10.5) 12/04/22 18:41 Total Bilirubin 0.4 mg/dL (0.15-1.2) 12/04/22 18:41 AST 11 U/L (0-32) 12/04/22 18:41 ALT 14 U/L (0-33) 12/04/22 18:41 Alkaline Phosphatase 56 U/L (35-105) 12/04/22 18:41 Total Protein 7.3 g/dL (6.6-8.7) 12/04/22 18:41 Albumin 4.3 g/dL (3.5-5.2) 12/04/22 18:41 Globulin 3.0 g/dL (1.3-4.6) 12/04/22 18:41 TSH 1.14 uIU/mL (0.27-4.20) 12/04/22 18:41 HCG, Qual Negative (Negative) 12/04/22 18:00 Urine Color Light yellow (Yellow) 12/04/22 18:00 Urine Appearance Sl hazy (CLEAR) A 12/04/22 18:00 Urine pH 5 (5-7) 12/04/22 18:00 Ur Specific Waller 1.010 (1.005-1.030) 12/04/22 18:00 Urine Protein Neg (Negative) 12/04/22 18:00 Urine Glucose (UA) Norm (Normal) 12/04/22 18:00 Urine Ketones Negative (Negative) 12/04/22 18:00 Urine Blood 2+ (Negative) H 12/04/22 18:00 Urine Nitrate Negative (Negative) 12/04/22 18:00 Urine Bilirubin Neg (Negative) 12/04/22 18:00 Urine Urobilinogen Neg mg/dL (Negative) 12/04/22 18:00 Ur Leukocyte Esterase 1+ (Negative) H 12/04/22 18:00 Urine RBC 0-4 /hpf (0-2) H 12/04/22 18:00 Urine WBC 0-4 /hpf (0-5) H 12/04/22 18:00 Ur Squamous Epith Cells 15-25 /hpf (0-5) H 12/04/22 18:00 Amorphous Sediment Not Reportable 12/04/22 18:00 Urine Bacteria Trace /hpf (NONE) 12/04/22 18:00 Urine Mucus Trace /hpf 12/04/22 18:00 Salicylates < 0.3 mg/dL (3-10) L 12/04/22 18:41 Urine Opiates Screen Negative ng/mL (Negative) 12/04/22 18:00 Acetaminophen < 5.0 ug/mL (10-30) L 12/04/22 18:41 Ur Barbiturates Screen Negative ng/mL (Negative) 12/04/22 18:00 Ur Phencyclidine Scrn Negative ng/mL (Negative) 12/04/22 18:00 Ur Amphetamines Screen Negative ng/mL (Negative) 12/04/22 18:00 U Benzodiazepines Scrn Negative ng/mL (Negative) 12/04/22 18:00 Urine Cocaine Screen Negative ng/mL (Negative) 12/04/22 18:00 U Marijuana (THC) Screen Negative ng/mL (Negative) 12/04/22 18:00 Ethyl Alcohol < 10 mg/dL (0-10) 12/04/22 18:41 Discharge Plan Discharge Patient Disposition: Admitted As Inpatient Admit Provider: Carlos Layton Clinical Impression: Auditory hallucinations, Acute psychosis Condition: Stable Discharge Diet: Advance as tolerated Discharge Activity: Resume usual activity Coding Level of Care Code ED Study Coordinator for Bandar Hicks
[2022-12-04 18:23] LABS: Amphetamines Screen Urine Negative (Negative); Barbiturates Screen Urine Negative (Negative); Benzodiazepines Screen Urine Negative (Negative); Cocaine Screen Urine Negative (Negative); Opiate Screen Urine Negative (Negative); PCP Screen Urine Negative (Negative); THC Screen Urine Negative (Negative)
[2022-12-04 18:30] LABS: HCG Qualitative Urine. Negative (Negative)
[2022-12-04] MEDS: ondansetron 2 mg/ML SDV 2 mL 4 MG IM (18:34)
[2022-12-04] MEDS: alum-mag-hydroxide-sime 30 mL UDC PO (18:34)
[2022-12-04] MEDS: ketorolac 30 mg/mL INJ IM (18:34)
[2022-12-04] MEDS: LORazepam 0.5 mg Tablet PO (18:35)
[2022-12-04 18:51] LABS: Basophils # 0.1 10^3/uL (0.0-0.1); Basophils % 0.7 %; Eosinophils # 0.3 10^3/uL (0.0-0.8); Eosinophils % 2.7 %; Hematocrit 44.8 % (37.0-47.0); Hemoglobin 14.9 g/dL (11.5-15.3); Lymphocytes # 4.3 10^3/uL (0.8-4.8); Lymphocytes % 34.9 %; Mean Corpuscular HGB Conc 33.3 g/dL (30.0-36.0); Mean Corpuscular Hemoglobin 29.8 pg (28.0-34.0); Mean Corpuscular Volume 89.6 fl (81-99); Monocytes # 0.5 10^3/uL (0.2-0.9); Monocytes % 3.9 %; Neutrophils # 7.17 10^3/uL (1.8-7.7); Neutrophils % 57.6 %; Nucleated Red Blood Cells % 0 %; Platelet Count 387 10^3/cmm (130-400); Red Cell Distribution Width 12.8 % (12.1-15.1); White Blood Count 12.4 10^3/uL (4.0-10.0)
[2022-12-04 19:22] LABS: Alanine Aminotransferase 14 U/L (0-33); Albumin Level 4.3 g/dL (3.5-5.2); Alkaline Phosphatase 56 U/L (35-105); Aspartate Amino Transferase 11 U/L (0-32); Blood Urea Nitrogen 18 mg/dL (6-20); Calcium 9.2 mg/dL (8.5-10.5); Carbon Dioxide 23 mmol/L (22-29); Chloride 103 mmol/L (98-107); Glomerular Filtration Rate 70.8 mL/min (90-130); Glucose 97 mg/dL (65-115); Osmolality Calculated 286 mOsm/kg (285-295); Sodium 137 mmol/L (136-145); Thyroid Stimulating Hormone 1.14 uIU/mL (0.27-4.20); Total Bilirubin 0.4 mg/dL (0.15-1.2); Total Protein 7.3 g/dL (6.6-8.7)
[2022-12-04 19:45] LABS: Acetaminophen < 5.0 ug/mL (10-30); Alcohol Level < 10 mg/dL (0-10); Salicylate < 0.3 mg/dL (3-10)
[2022-12-04 20:27] VITALS: BP 106/73; PULSE 82; RESP 14
[2022-12-04 20:32] VITALS: PULSE 80; RESP 14; O2SAT 95
--- NOTE | 2022-12-04 21:15 | PC.NURSE ---
37 yr.old female admitted to room 127. Arrived to unit from ED via w/c accompanied by ED staff and security. Patient is voluntary. Alert and Ox4. Mood anxious. Denies any current thoughts of SI or HI. Does state she is having AH with the voices growing louder over past week. Denies VH. No c/o pain voiced. Patient states she is not depressed but was concerned with the voices telling her to harm herself. No drugs found in patient's drug screen. Patient states she has not used meth since September after being discharged from [facility]. Does report anxiety related to the voices. Skin assessment completed with no skin issues present and no contraband found. Patient cooperative with all care. Unit rules and expectations reviewed and voiced understanding. Snack and fluids given. Escorted to room.
--- NOTE | 2022-12-04 21:45 | PC.NURSE ---
Patient reported feeling very agitated from AH. Stated she didn't feel like she could rest and requested medications to help with the AH and something for sleep. Zyprexa po and trazodone po given at that time.
[2022-12-04] MEDS: trazodone 50 mg Tablet PO (21:47)
[2022-12-04] MEDS: OLANZapine 5 mg ODT PO (21:47)
[2022-12-04] MEDS: nicotine 4 mg lozenge MUCOUS MEM (21:52)
[2022-12-04 22:00] VITALS: BP 103/70; PULSE 94; RESP 20; TEMP 36.6; O2SAT 96
[2022-12-04 22:23] LABS: Urine Color Light yellow (Yellow)
[2022-12-04 22:24] LABS: Bilirubin Urine Neg (Negative); Blood Urine 2+ (Negative); Glucose Urine UA Norm (Normal); Ketones Urine Negative (Negative); Leukocyte Esterase Urine 1+ (Negative); Nitrate Urine Negative (Negative); Protein Urine Neg (Negative); Urine Appearance SL Hazy (CLEAR); Urobilinogen Urine Neg (Negative); pH Urine 5 (5-7)
[2022-12-04 23:30] LABS: Add Urine Culture? No; Bacteria Urine TRACE /hpf; Mucus Urine TRACE /hpf; RBC Urine 0-4 /hpf (0-2); Squamous Epithelial Cell Urine 15-25 /hpf (0-5); WBC Urine 0-4 /hpf (0-5)
--- NOTE | 2022-12-05 04:41 | PC.NURSE ---
Patient has been resting quietly in bed with eyes closed since receiving earlier PRN's. No signs of distress noted.
[2022-12-05 06:00] VITALS: BP 94/65; PULSE 69; RESP 16; TEMP 36.4; O2SAT 96
[2022-12-05] MEDS: buPROPion XL (24 HR) 150 mg Tablet PO (08:56)
[2022-12-05] MEDS: nicotine 4 mg lozenge MUCOUS MEM ×2 (08:56→18:51)
[2022-12-05] MEDS: pneumococcal (23 valent) SDV 0.5 mL IM (09:03)
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
[2022-12-05 14:00] VITALS: BP 93/60; PULSE 73; RESP 17; TEMP 36.6; O2SAT 95
[2022-12-05] MEDS: OLANZapine 5 mg ODT PO (18:51)
[2022-12-05] MEDS: ibuprofen 600 mg Tablet PO (18:51)
[2022-12-05] MEDS: trazodone 50 mg Tablet PO (20:44)
[2022-12-05 22:00] VITALS: BP 89/65; PULSE 80; RESP 16; TEMP 36.4; O2SAT 99
[2022-12-06 06:00] VITALS: BP 89/65; PULSE 80; RESP 16; TEMP 36.4; O2SAT 99
[2022-12-06] MEDS: hyDROXYzine 25 mg Capsule 50 MG PO (08:41)
[2022-12-06] MEDS: buPROPion XL (24 HR) 150 mg Tablet PO (08:41)
[2022-12-06] MEDS: nicotine 4 mg lozenge MUCOUS MEM ×2 (13:21→19:32)
[2022-12-06] MEDS: OLANZapine 5 mg ODT PO (13:44)
[2022-12-06 14:00] VITALS: BP 138/93; PULSE 78; RESP 16; TEMP 36.6; O2SAT 95
--- NOTE | 2022-12-06 16:52 | W.PM.NPUPNS ---
Subjective [facility] Subjective: Is a 37-year-old white female with a history of methamphetamine abuse and psychotic symptoms along with depression admitted with suicidal ideation. Hallucinations had become much better today. She had acknowledged that she was very concerned about the reemergence of auditory hallucinations in the absence of having used methamphetamine. She reported that she had not been feeling or experiencing any side effects from his from her current medications and states that she would be okay with returning home soon. 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 Mental Status Exam MSE Comments: Patient is a casually dressed white female with a disheveled appearance who was somewhat anxious on interview. There was no evidence of psychomotor agitation but some evidence of mild psychomotor retardation. Her mood was described as better.. Her affect was restricted in range and mood incongruent. There was no clear evidence of delusional thinking. She did not appear to be responding to internal stimuli. . Her speech was normal in regards to rate rhythm and prosody other than brief periods of increased latency. She denied any suicidal or homicidal ideation. Her insight appeared poor. Her judgment was poor. Her impulse control appeared limited at this time. She she appeared to have an appropriate fund of knowledge and recent and remote memory appeared grossly intact. Vitals/I&O/Wt Last Vital Signs Temp 98 F 12/06/22 14:00 Pulse 78 12/06/22 14:00 Resp 16 12/06/22 14:00 BP 138/93 12/06/22 14:00 Pulse Ox 95 12/06/22 14:00 O2 Del Method 12/06/22 14:00 Weight last 48 hrs Weight 63.503 kg Data [facility] 12/04/22 18:41 12/04/22 18:41 A&P Assessment and plan (1) Acute psychosis: (2) Major depressive disorder, recurrent, severe with psychotic symptoms: (3) Anxiety: (4) Methamphetamine abuse, episodic: Plan Patient is a 37-year-old white female with a history of polysubstance abuse along with depression and psychotic symptoms currently endorsing auditory hallucinations in the absence of the use of illicit methamphetamine use. Patient would likely benefit from medication to target psychosis at this time and was agreeable to a trial and remain here in the hospital while addressing depression as well. #1. Restart Wellbutrin XL 150mg in am. #2. Increase Zyprexa to 7.5 mg at night to target psychotic symptoms. #3. Continue 15-minute checks for safety. #4. Encourage sober living treatment at the highest level of care to which the patient is willing to commit. #5. Encourage individual group and milieu therapy. Involuntary Hold Information 96 Hour Hold: 96 Hour Involuntary Admission: No Attestations [facility] Medical Necessity Statement*: Inpatient hospitalization is medically necessary and the clinical appropriate invention at this time. We will monitor medications and make changes as indicated. Patient will be in the hospital for over 2 midnights with a likely length of stay of 1-2 days. Coding Level of Care Code Established Pt Acute Code for Chg Fwd Patient Type Established History Problem Focused Exam Problem Focused Medical Decision Making Straight Forward Diagnoses Acute psychosis F23 Major depressive disorder, recurrent, severe with psychotic symptoms F33.3 Anxiety F41.9 Methamphetamine abuse, episodic F15.10
[2022-12-06] MEDS: trazodone 50 mg Tablet PO (19:29)
[2022-12-06] MEDS: OLANZapine 5 mg ODT 7.5 MG PO (19:30)
[2022-12-06 20:10] VITALS: BP 95/63; PULSE 85; RESP 18; TEMP 36.3; O2SAT 98
[2022-12-07 05:35] VITALS: RESP 18
[2022-12-07] MEDS: buPROPion XL (24 HR) 150 mg Tablet PO (09:38)
[2022-12-07] MEDS: nicotine 4 mg lozenge MUCOUS MEM (10:14)
[2022-12-07] MEDS: ondansetron 4 MG Tablet PO (10:23)
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
[2022-12-07 12:03] VITALS: BP 112/64; PULSE 58; RESP 18; TEMP 36.8; O2SAT 97
--- NOTE | 2022-12-07 12:38 | PC.NURSE ---
DISCHARGE INSTRUCTION DISCUSSED WITH PATIENT. PT STATES UNDERSTANDING AND COMPLIANCE. PT LEFT VIA POV PROVIDER TENDER.
== END 2022-12-07 12:39 | disposition home or self-care (01) | DRG 885 ==
LOC: ER 20:09 → NP 12-05 00:53
PROVIDERS: Admitting Provider Psychiatry & Neurology Psychiatry; Emergency Provider Emergency Medicine; PCP Family Medicine; Visit Provider Psychiatry & Neurology Psychiatry
DX: F33.3 Major depressive disorder, recurrent, severe with psychotic symptoms (principal); R45.851 Suicidal ideations; F15.10 Other stimulant abuse, uncomplicated; F17.210 Nicotine dependence, cigarettes, uncomplicated; F41.9 Anxiety disorder, unspecified
CPT/HCPCS: 80053; 80306; 80307; 81001; 81025; 84443; 85025; 90471; 90686; 90732; 96372; 97150; 97165; 99285; J1885; J2405; Q0162

== ENCOUNTER 2022-12-28 11:30 | Emergency (ER) | payer BC, MEDICAID, SELFPAY ==
[2022-12-28 11:33] VITALS: BP 131/94; PULSE 99; RESP 18; TEMP 36.9; O2SAT 96
--- NOTE | 2022-12-28 11:37 | ED_ITS ---
HPI - General Adult General: Chief complaint: Seizure Stated complaint: shaking Time Seen by Provider: 12/28/22 11:36 Source: patient Mode of arrival: EMS History of Present Illness: 37-year-old female presents emergency room compl aining of needing an IV. When she first arrived she says she feels like she is about to have a seizure and needs an IV she been telling EMS the same thing. She is adamant to the point of it is difficult to get a history from her because she was demanding that an IV be placed. She states that she has had seizures in the past is not on any medications she is unsure if she has ever had an EEG or s een a neurologist. She denies any chest pain or shortness of breath any abdominal pain no recent falls or trauma denies recent illness. Relieving factors: none Exacerbating factors: none Associated symptoms: Reports confusion; Deny chest pain, cough, diaphoresis, decreased appetite, dyspnea, malaise, nause a, rash, palpitations, seizures or vomiting Review of Systems Const: Denies: fever(s), chills, fatigue, malaise or diaphoresis ENMT: Denies: throat pain, ear or mastoid pain, nasal discharge or nasal congestion Card: Denies: chest pain or palpitations Resp: Denies: dyspnea, productive cough or non-productive cough GI: Denies: abdominal pain, nausea or vomiting : Denies: flank pain, difficulty voiding, dysuria, urinary frequency or urinary urgency Musc: Denies: neck pain or back pain Skin/Breast: Denies: rash Neuro: Reports: confusion Psych: Reports: anxiety PFSH ED PFSH: Medical History Major depressive disorder, recurrent, severe with psychotic symptoms Methamphetamine abuse, episodic Methamphetamine use Psychiatric care Family History Daughter Diabetes Mother Hypertension Grandfather No problems noted. Grandmother Breast cancer 70's Denies family history of Colon cancer Ovarian cancer Clotting disorder Heart disease Hyperlipidemia Anesthesia complication Bleeding disorder Uterine cancer Thyroid condition Stroke Social History Smoking and tobacco status: current every day smoker cigarettes Packs smoked per day: 0.5 Alcohol intake: never Current gender identity: Female Female Reproductive History: Date of last menstrual period: 11/22/22 Physical Exam Const: GENERAL APPEARANCE: cooperative and comfortable ORIENTATION/CONSCIOUSNESS: Yes awake, Yes oriented to person, Yes oriented to place and Yes oriented to time HENMT: COMMON NORMALS: normocephalic, atraumatic and hearing grossly normal bilaterally HEAD & SCALP: normocephalic and atraumatic Resp: COMMON NORMALS: normal respiratory effort, No retractions, No use of accessory muscles and clear to auscultation bilaterally AUSCULTATION: clear to auscultation bilaterally Cardio: COMMON NORMALS: regular rate, regular rhythm and No murmurs present (Cardio) RATE: regular rate RHYTHM: regular rhythm GI: COMMON NORMALS: Soft to palpation and No hepatosplenomegaly present AUSCULTATION: Yes normoactive bowel sounds PALPATION: Yes Soft to palpation, No Tenderness to palpation present (GI), No Guarding due to palpation present (GI) and Yes No hepatosplenomegaly present Extremity: COMMON NORMALS: normal to inspection, capillary refill normal, no clubbing, cyanosis or edema, no calf tenderness and no pedal edema Neuro: SENSORIUM/ORIENTATION: Yes oriented to person, Yes oriented to place and Yes oriented to time Skin: COMMON NORMALS: no rashes or lesions noted GENERAL SKIN EXAM: no rashes or lesions noted Course Vital Signs: Vital signs: Vital Signs Temperature 98.4 F 12/28/22 11:33 Pulse Rate 100 12/28/22 14:33 Respiratory Rate 20 H 12/28/22 14:33 Blood Pressure 103/80 12/28/22 13:30 Pulse Oximetry 98 12/28/22 14:33 Oxygen Delivery Me thod 12/28/22 11:33 [facility] - General Adult Medical Decision Making During the course of work-up patient began to behave bizarrely but had no focal neurologic deficits. She appeared to be under the influence of methamphetamine. When she first arrived she had been demanding and IV initially from EMS and then continuously after arriving here. She began requesting pain medications but could not give us a focal source of her pain she was offered Tylenol and refused demanded to leave. I do suspect she used the IV access we had established in the department to inject IV methamphetamine. This is based on her change in behavior from when she first arrived to when she was demanding to leave. At this time she is not homicidal or suicidal she is behaving as if she is under the influence of methamphetamines but is not particularly danger to herself or others and I do not have anything that would justify placing her on a 96-hour hold. Attempted to discuss this with her and my concerns about her change in behavior she did not want to discuss and demanded to leave. Patient advised she could return at any time if she wishes. At the time of discharge she has no focal neurologic deficits suggestive of stroke. Medical Records I reviewed the patient's medical records. Lab Data I reviewed the patient's lab results. 12/28/22 12:10 12/28/22 12:10 Laboratory Results WBC 11.0 10^3/uL (4.0-10.0) H 12/28/22 12:10 RBC 5.22 10^6/uL (4.1-5.3) 12/28/22 12:10 Hgb 15.9 g/dL (11.5-15.3) H 12/28/22 12:10 Hct 46.9 % (37.0-47.0) 12/28/22 12:10 MCV 89.8 fl (81-99) 12/28/22 12:10 MCH 30.5 pg (28.0-34.0) 12/28/22 12:10 MCHC 33.9 g/dL (30.0-36.0) 12/28/22 12:10 RDW 12.8 % (12.1-15.1) 12/28/22 12:10 Plt Count 370 10^3/cmm (130-400) 12/28/22 12:10 MPV 10.2 fL (7.4-10.4) 12/28/22 12:10 Neut % (Auto) 57.2 % 12/28/22 12:10 Lymph % (Auto) 34.2 % 12/28/22 12:10 [place] % (Auto) 5.7 % 12/28/22 12:10 Eos % (Auto) 2.1 % 12/28/22 12:10 Baso % (Auto) 0.6 % 12/28/22 12:10 Neut # (Auto) 6.31 10^3/uL (1.8-7.7) 12/28/22 12:10 Lymph # (Auto) 3.8 10^3/uL (0.8-4.8) 12/28/22 12:10 [place] # (Auto) 0.6 10^3/uL (0.2-0.9) 12/28/22 12:10 Eos # (Auto) 0.2 10^3/uL (0.0-0.8) 12/28/22 12:10 Baso # (Auto) 0.1 10^3/uL (0.0-0.1) 12/28/22 12:10 Nucleated RBC % (auto) 0 % 12/28/22 12:10 Nucleated RBCs # 0.0 /100WBC 12/28/22 12:10 Sodium 140 mmol/L (136-145) 12/28/22 12:10 Potassium 3.5 mmol/L (3.5-5.1) 12/28/22 12:10 Chloride 103 mmol/L (98-107) 12/28/22 12:10 Carbon Dioxide 23 mmol/L (22-29) 12/28/22 12:10 Anion Gap 17.5 (5-19) 12/28/22 12:10 BUN 6 mg/dL (6-20) 12/28/22 12:10 Creatinine 0.9 mg/dL (0.5-0.9) 12/28/22 12:10 GFR Calculation 70.8 mL/min (90-130) L 12/28/22 12:10 Glucose 110 mg/dL (65-115) 12/28/22 12:10 Calculated Osmolality 288 mOsm/kg (285-295) 12/28/22 12:10 Calcium 9.4 mg/dL (8.5-10.5) 12/28/22 12:10 Total Bilirubin 0.6 mg/dL (0.15-1.2) 12/28/22 12:10 AST 14 U/L (0-32) 12/28/22 12:10 ALT 11 U/L (0-33) 12/28/22 12:10 Alkaline Phosphatase 61 U/L (35-105) 12/28/22 12:10 Total Protein 7.4 g/dL (6.6-8.7) 12/28/22 12:10 Albumin 4.6 g/dL (3.5-5.2) 12/28/22 12:10 Globulin 2.8 g/dL (1.3-4.6) 12/28/22 12:10 HCG, Qual Negative (Negative) 12/28/22 12:10 Discharge Plan Discharge Patient Disposition: Home Clinical Impression: Methamphetamine abuse, episodic Condition: Stable Prescriptions: No Action No Known Home Medications Discharge Orders: Discharge ED (Routine); Ordered 12/28/22 Ordered By: Fausto Camilo Referrals: Reuben Mccain, DO [Primary Care Provider] - Discharge Diet: Usual diet Discharge Activity: Resume usual activity Patient Instructions: Opioid Safety, Pain Management Activity Restrictions/Additional Instructions: You are seen today reporting you had anticipation of having a seizure there is no seizure activity while you are here you chose to leave prior to completing the evaluation. You are welcome to return at any point. 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
--- NOTE | 2022-12-28 11:57 | ECG_ITS ---
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 Measurements Intervals [place] Rate: 97 P: 68 PA: 122 QRS: 77 QRSD: 85 T: 81 QT: 367 QTc: 466 Interpretive Statements SINUS RHYTHM WITH SINUS ARRHYTHMIA POSSIBLE LEFT ATRIAL ENLARGEMENT [-0.1mV P-WAVE IN V1/V2] POSSIBLE RIGHT VENTRICULAR CONDUCTION DELAY [RSR (QR) IN V1/V2] NONSPECIFIC T-WAVE ABNORMALITY Compared to ECG 10/02/2022 15:27:35 T-wave abnormality now present Electronically Signed On 12-28-2022 12:53:27 GLASS CALIBRATOR by Silvia Ibrahim M.D. [email or web address] digitalpe[facility] hospitalParate[facility] Pharmaceutical[id number]
[2022-12-28 12:20] LABS: Basophils # 0.1 10^3/uL (0.0-0.1); Basophils % 0.6 %; Eosinophils # 0.2 10^3/uL (0.0-0.8); Eosinophils % 2.1 %; Hematocrit 46.9 % (37.0-47.0); Hemoglobin 15.9 g/dL (11.5-15.3); Lymphocytes # 3.8 10^3/uL (0.8-4.8); Lymphocytes % 34.2 %; Mean Corpuscular HGB Conc 33.9 g/dL (30.0-36.0); Mean Corpuscular Hemoglobin 30.5 pg (28.0-34.0); Mean Corpuscular Volume 89.8 fl (81-99); Mean Platelet Volume 10.2 fL (7.4-10.4); Monocytes # 0.6 10^3/uL (0.2-0.9); Monocytes % 5.7 %; Neutrophils # 6.31 10^3/uL (1.8-7.7); Neutrophils % 57.2 %; Nucleated Red Blood Cells % 0 %; Platelet Count 370 10^3/cmm (130-400); Red Blood Count 5.22 10^6/uL (4.1-5.3); Red Cell Distribution Width 12.8 % (12.1-15.1)
[2022-12-28 12:38] LABS: HCG, Serum Qual Negative (Negative)
[2022-12-28 12:40] VITALS: BP 115/86; PULSE 99; RESP 20; O2SAT 98
[2022-12-28] MEDS: sodium chloride 0.9% 1,000 ML 999 ML IV (12:40)
[2022-12-28 12:52] LABS: Alanine Aminotransferase 11 U/L (0-33); Albumin Level 4.6 g/dL (3.5-5.2); Alkaline Phosphatase 61 U/L (35-105); Anion Gap 17.5 (5-19); Aspartate Amino Transferase 14 U/L (0-32); Blood Urea Nitrogen 6 mg/dL (6-20); Calcium 9.4 mg/dL (8.5-10.5); Carbon Dioxide 23 mmol/L (22-29); Chloride 103 mmol/L (98-107); Globulin 2.8 g/dL (1.3-4.6); Glomerular Filtration Rate 70.8 mL/min (90-130); Glucose 110 mg/dL (65-115); Osmolality Calculated 288 mOsm/kg (285-295); Potassium 3.5 mmol/L (3.5-5.1); Sodium 140 mmol/L (136-145); Total Bilirubin 0.6 mg/dL (0.15-1.2); Total Protein 7.4 g/dL (6.6-8.7)
--- NOTE | 2022-12-28 13:12 | PC.PHAR ---
pt states she takes no rx or otc meds-rafita best states last filled zofran 4mg q8h prn 12/15/22 20d/s pt states not taking
[2022-12-28 13:30] VITALS: BP 103/80; PULSE 83; RESP 15; O2SAT 100
--- NOTE | 2022-12-28 13:43 | PC.NURSE ---
PT MOTHER CALLED ED STATING THAT PT HAS BEEN USING AMPHETAMINES AGAIN.
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
[2022-12-28 14:33] VITALS: PULSE 100; RESP 20; O2SAT 98
== END 2022-12-28 14:35 | disposition home or self-care (01) ==
PROVIDERS: Emergency Provider Family Medicine; PCP Family Medicine
DX: F15.10 Other stimulant abuse, uncomplicated (principal)
CPT/HCPCS: 80053; 84703; 85025; 93005; 96360; 99284; J7030

== ENCOUNTER 2023-01-17 14:12 | Emergency (ER) | payer BC, MEDICAID, SELFPAY ==
[2023-01-17 14:22] VITALS: BP 113/79; PULSE 87; RESP 14; TEMP 36.8; O2SAT 97; BMI 24.7
--- NOTE | 2023-01-17 14:22 | W.ED.PSYCHS ---
Documented by User: Jeffery Benoit MD 01/31/23 20:07 HPI - Psych General: Chief Complaint: Psychiatric Symptoms Stated Complaint: SI Time Seen by Provider: 01/17/23 14:15 History of Present Illness: Ms. Saenz is a 37-year-old lady with history of major depressive disorder and methamphetamine abuse presenting to the emergency department for suicidal ideation. She reports onset of symptoms earlier today without known specific provoking event. She denies specific plans but reports constantly thinking about suicide since onset of symptoms. She has a history of similar and has benefited from psychiatric hospitalization in the past. She reports that she has not been taking her medications. Only medical concern is some dysuria, denies other signs of systemic illness. No other specific changes in health, exacerbating, or alleviating factors identified. Onset (ago): hour(s) Duration: getting worse History of same: Yes Relieving factors: none Exacerbating factors: none Context: not taking psychiatric medications Associated psychiatric symptoms: depression and suicidal ideation If self harm: admits thoughts of self harm Review of Systems General: Reports: 10 or more systems reviewed and unremarkable except in HPI and below PFSH ED PFSH: Medical History Major depressive disorder, recurrent, severe with psychotic symptoms Methamphetamine abuse, episodic Methamphetamine use Psychiatric care Family History Daughter Diabetes Mother Hypertension Grandfather No problems noted. Grandmother Breast cancer 70's Denies family history of Colon cancer Ovarian cancer Clotting disorder Heart disease Hyperlipidemia Anesthesia complication Bleeding disorder Uterine cancer Thyroid condition Stroke Social History Smoking and tobacco status: current every day smoker cigarettes Packs smoked per day: 0.5 Alcohol intake: never Current gender identity: Female Physical Exam Const: COMMON NORMALS: alert GENERAL APPEARANCE: cooperative and well developed HENMT: COMMON NORMALS: normocephalic and atraumatic HEAD & SCALP: normocephalic and atraumatic Eye: COMMON NORMALS: conjunctivae normal CONJUNCTIVA: Yes conjunctivae normal SCLERA: sclerae normal Neck/C-Spine: COMMON NORMALS: supple GENERAL: Yes trachea midline Resp: COMMON NORMALS: clear to auscultation bilaterally EFFORT & INSPECTION: Yes able to speak in complete sentences AUSCULTATION: clear to auscultation bilaterally Cardio: COMMON NORMALS: regular rate and regular rhythm RATE: regular rate RHYTHM: regular rhythm GI: COMMON NORMALS: Soft to palpation PALPATION: Yes Soft to palpation and No Tenderness to palpation present (GI) Extremity: GENERAL: Yes normal exam except as noted and No edema Neuro: COMMON NORMALS: moves all extremities SENSORIUM/ORIENTATION: Yes alert and No Orientation impaired Psych: COMMON NORMALS: mental status grossly normal and Normal thought process present THOUGHT PROCESS: Normal thought process present Course Vital Signs: Vital signs: Vital Signs Temperature 98.2 F 01/17/23 14:22 Pulse Rate 60 01/18/23 03:09 Respiratory Rate 14 01/18/23 03:09 Blood Pressure 98/50 01/18/23 03:09 Pulse Oximetry 97 01/18/23 03:09 Oxygen Delivery Me thod Nasal Cannula 01/18/23 03:[address] [facility] - Psych Medical Decision Making 37-year-old lady with psychiatric history not currently taking her medications presenting for suicidal ideation. Reports severe symptoms starting today. Denies specific provoking event. Patient is calm and cooperative. She is nontoxic in appearance. EKG notable for sinus rhythm, normal axis and intervals, no STEMI. Labs notable for no significant hematologic or metabolic abnormality.. Urinalysis without evidence of urinary tract infection. Urine negative. Urine drug screen positive for benzodiazepines. Toxic ingestions negative. COVID-negative. Given reported clinical history and physical exam there is no indication for imaging at this time. Given severity of symptoms and clinical history including not currently on medications I believe that inpatient management is reasonable. Based on ED evaluation at this point there is no obvious condition that would preclude the patient from inpatient management psychiatric concerns/symptoms. We do not have bed availability at our facility and therefore we will look for outside transfer. Medical Records I reviewed the patient's medical records. Lab Data I reviewed the patient's lab results. 01/17/23 14:56 01/17/23 14:56 Laboratory Results WBC 8.1 10^3/uL (4.0-10.0) 01/17/23 14:56 RBC 4.64 10^6/uL (4.1-5.3) 01/17/23 14:56 Hgb 14.0 g/dL (11.5-15.3) 01/17/23 14:56 Hct 42.4 % (37.0-47.0) 01/17/23 14:56 MCV 91.4 fl (81-99) 01/17/23 14:56 MCH 30.2 pg (28.0-34.0) 01/17/23 14:56 MCHC 33.0 g/dL (30.0-36.0) 01/17/23 14:56 RDW 12.7 % (12.1-15.1) 01/17/23 14:56 Plt Count 303 10^3/cmm (130-400) 01/17/23 14:56 MPV 10.4 fL (7.4-10.4) 01/17/23 14:56 Neut % (Auto) 52.3 % 01/17/23 14:56 Lymph % (Auto) 35.9 % 01/17/23 14:56 [place] % (Auto) 4.7 % 01/17/23 14:56 Eos % (Auto) 6.0 % 01/17/23 14:56 Baso % (Auto) 1.0 % 01/17/23 14:56 Neut # (Auto) 4.23 10^3/uL (1.8-7.7) 01/17/23 14:56 Lymph # (Auto) 2.9 10^3/uL (0.8-4.8) 01/17/23 14:56 [place] # (Auto) 0.4 10^3/uL (0.2-0.9) 01/17/23 14:56 Eos # (Auto) 0.5 10^3/uL (0.0-0.8) 01/17/23 14:56 Baso # (Auto) 0.1 10^3/uL (0.0-0.1) 01/17/23 14:56 Nucleated RBC % (auto) 0 % 01/17/23 14:56 Nucleated RBCs # 0.0 /100WBC 01/17/23 14:56 Sodium 138 mmol/L (136-145) 01/17/23 14:56 Potassium 4.0 mmol/L (3.5-5.1) 01/17/23 14:56 Chloride 104 mmol/L (98-107) 01/17/23 14:56 Carbon Dioxide 24 mmol/L (22-29) 01/17/23 14:56 Anion Gap 14.0 (5-19) 01/17/23 14:56 BUN 9 mg/dL (6-20) 01/17/23 14:56 Creatinine 0.8 mg/dL (0.5-0.9) 01/17/23 14:56 GFR Calculation 81.2 mL/min (90-130) L 01/17/23 14:56 Glucose 111 mg/dL (65-115) 01/17/23 14:56 Calculated Osmolality 285 mOsm/kg (285-295) 01/17/23 14:56 Calcium 9.1 mg/dL (8.5-10.5) 01/17/23 14:56 Total Bilirubin 0.5 mg/dL (0.15-1.2) 01/17/23 14:56 AST 13 U/L (0-32) 01/17/23 14:56 ALT 9 U/L (0-33) 01/17/23 14:56 Alkaline Phosphatase 47 U/L (35-105) 01/17/23 14:56 Total Protein 6.7 g/dL (6.6-8.7) 01/17/23 14:56 Albumin 4.3 g/dL (3.5-5.2) 01/17/23 14:56 Globulin 2.4 g/dL (1.3-4.6) 01/17/23 14:56 TSH 0.89 uIU/mL (0.27-4.20) 01/17/23 14:56 HCG, Qual Negative (Negative) 01/17/23 16:30 Urine Color Yellow (Yellow) 01/17/23 16:40 Urine Appearance Clear (CLEAR) 01/17/23 16:40 Urine pH 7 (5-7) 01/17/23 16:40 Ur Specific [place] 1.010 (1.005-1.030) 01/17/23 16:40 Urine Protein Neg (Negative) 01/17/23 16:40 Urine Glucose (UA) Norm (Normal) 01/17/23 16:40 Urine Ketones Negative (Negative) 01/17/23 16:40 Urine Blood Trace (Negative) H 01/17/23 16:40 Urine Nitrate Negative (Negative) 01/17/23 16:40 Urine Bilirubin Neg (Negative) 01/17/23 16:40 Urine Urobilinogen Neg mg/dL (Negative) 01/17/23 16:40 Ur Leukocyte Esterase Negative (Negative) 01/17/23 16:40 Urine RBC Rare /hpf (0-2) 01/17/23 16:40 Urine WBC None /hpf (0-5) 01/17/23 16:40 Ur Squamous Epith Cells None /hpf (0-5) 01/17/23 16:40 Amorphous Sediment Not Reportable 01/17/23 16:40 Urine Bacteria None /hpf (NONE) 01/17/23 16:40 Salicylates 2.3 mg/dL (3-10) L 01/17/23 14:56 Urine Opiates Screen Negative ng/mL (Negative) 01/17/23 16:40 Acetaminophen < 5.0 ug/mL (10-30) L 01/17/23 14:56 Ur Barbiturates Screen Negative ng/mL (Negative) 01/17/23 16:40 Ur Phencyclidine Scrn Negative ng/mL (Negative) 01/17/23 16:40 Ur Amphetamines Screen Negative ng/mL (Negative) 01/17/23 16:40 U Benzodiazepines Scrn Positive ng/mL (Negative) H 01/17/23 16:40 Urine Cocaine Screen Negative ng/mL (Negative) 01/17/23 16:40 U Marijuana (THC) Screen Negative ng/mL (Negative) 01/17/23 16:40 Ethyl Alcohol < 10 mg/dL (0-10) 01/17/23 14:56 SARS-CoV-2 Ag (Rapid) negative (Negative) 01/17/23 15:30 Discharge Plan Discharge Patient Disposition: Xfer Short-Term Hosp Clinical Impression: Suicidal ideation Condition: Stable Referrals: Reuben Mccain, [Primary Care Provider] - Coding Level of Care Code ED System Support Developer for Chg Fwd Documented by User: Winter George MD 01/18/23 00:45 HPI - Psych General: Chief Complaint: Psychiatric Symptoms Stated Complaint: SI Time Seen by Provider: 01/17/23 14:15 [facility] ED PFS: Medical History Major depressive disorder, recurrent, severe with psychotic symptoms Methamphetamine abuse, episodic Methamphetamine use Psychiatric care Family History Daughter Diabetes Mother Hypertension Grandfather No problems noted. Grandmother Breast cancer 70's Denies family history of Colon cancer Ovarian cancer Clotting disorder Heart disease Hyperlipidemia Anesthesia complication Bleeding disorder Uterine cancer Thyroid condition Stroke Social History Smoking and tobacco status: current every day smoker cigarettes Packs smoked per day: 0.5 Alcohol intake: never Current gender identity: Female Course Vital Signs: Vital signs: Vital Signs Temperature 98.2 F 01/17/23 14:22 Pulse Rate 60 01/18/23 03:09 Respiratory Rate 14 01/18/23 03:09 Blood Pressure 98/50 01/18/23 03:09 Pulse Oximetry 97 01/18/23 03:09 Oxygen Delivery Me thod Nasal Cannula 01/18/23 03:09 MDM - Psych Medical Decision Making 37-year-old lady with psychiatric history not currently taking her medications presenting for suicidal ideation. Reports severe symptoms starting today. Denies specific provoking event. Patient is calm and cooperative. She is nontoxic in appearance. EKG notable for sinus rhythm, normal axis and intervals, no STEMI. Labs notable for no significant hematologic or metabolic abnormality.. Urinalysis without evidence of urinary tract infection. Urine negative. Urine drug screen positive for benzodiazepines. Toxic ingestions negative. COVID-negative. Given reported clinical history and physical exam there is no indication for imaging at this time. Given severity of symptoms and clinical history including not currently on medications I believe that inpatient management is reasonable. Based on ED evaluation at this point there is no obvious condition that would preclude the patient from inpatient management psychiatric concerns/symptoms. Patient presents here with depression along with suicidal ideations patient's medically cleared and accepted at [facility] due to no psych availability here. We do not have bed availability at our facility and therefore we will look for outside transfer. Lab Data 01/17/23 14:56 01/17/23 14:56 Laboratory Results WBC 8.1 10^3/uL (4.0-10.0) 01/17/23 14:56 RBC 4.64 10^6/uL (4.1-5.3) 01/17/23 14:56 Hgb 14.0 g/dL (11.5-15.3) 01/17/23 14:56 Hct 42.4 % (37.0-47.0) 01/17/23 14:56 MCV 91.4 fl (81-99) 01/17/23 14:56 MCH 30.2 pg (28.0-34.0) 01/17/23 14:56 MCHC 33.0 g/dL (30.0-36.0) 01/17/23 14:56 RDW 12.7 % (12.1-15.1) 01/17/23 14:56 Plt Count 303 10^3/cmm (130-400) 01/17/23 14:56 MPV 10.4 fL (7.4-10.4) 01/17/23 14:56 Neut % (Auto) 52.3 % 01/17/23 14:56 Lymph % (Auto) 35.9 % 01/17/23 14:56 [place] % (Auto) 4.7 % 01/17/23 14:56 Eos % (Auto) 6.0 % 01/17/23 14:56 Baso % (Auto) 1.0 % 01/17/23 14:56 Neut # (Auto) 4.23 10^3/uL (1.8-7.7) 01/17/23 14:56 Lymph # (Auto) 2.9 10^3/uL (0.8-4.8) 01/17/23 14:56 [place] # (Auto) 0.4 10^3/uL (0.2-0.9) 01/17/23 14:56 Eos # (Auto) 0.5 10^3/uL (0.0-0.8) 01/17/23 14:56 Baso # (Auto) 0.1 10^3/uL (0.0-0.1) 01/17/23 14:56 Nucleated RBC % (auto) 0 % 01/17/23 14:56 Nucleated RBCs # 0.0 /100WBC 01/17/23 14:56 Sodium 138 mmol/L (136-145) 01/17/23 14:56 Potassium 4.0 mmol/L (3.5-5.1) 01/17/23 14:56 Chloride 104 mmol/L (98-107) 01/17/23 14:56 Carbon Dioxide 24 mmol/L (22-29) 01/17/23 14:56 Anion Gap 14.0 (5-19) 01/17/23 14:56 BUN 9 mg/dL (6-20) 01/17/23 14:56 Creatinine 0.8 mg/dL (0.5-0.9) 01/17/23 14:56 GFR Calculation 81.2 mL/min (90-130) L 01/17/23 14:56 Glucose 111 mg/dL (65-115) 01/17/23 14:56 Calculated Osmolality 285 mOsm/kg (285-295) 01/17/23 14:56 Calcium 9.1 mg/dL (8.5-10.5) 01/17/23 14:56 Total Bilirubin 0.5 mg/dL (0.15-1.2) 01/17/23 14:56 AST 13 U/L (0-32) 01/17/23 14:56 ALT 9 U/L (0-33) 01/17/23 14:56 Alkaline Phosphatase 47 U/L (35-105) 01/17/23 14:56 Total Protein 6.7 g/dL (6.6-8.7) 01/17/23 14:56 Albumin 4.3 g/dL (3.5-5.2) 01/17/23 14:56 Globulin 2.4 g/dL (1.3-4.6) 01/17/23 14:56 TSH 0.89 uIU/mL (0.27-4.20) 01/17/23 14:56 HCG, Qual Negative (Negative) 01/17/23 16:30 Urine Color Yellow (Yellow) 01/17/23 16:40 Urine Appearance Clear (CLEAR) 01/17/23 16:40 Urine pH 7 (5-7) 01/17/23 16:40 Ur Specific [place] 1.010 (1.005-1.030) 01/17/23 16:40 Urine Protein Neg (Negative) 01/17/23 16:40 Urine Glucose (UA) Norm (Normal) 01/17/23 16:40 Urine Ketones Negative (Negative) 01/17/23 16:40 Urine Blood Trace (Negative) H 01/17/23 16:40 Urine Nitrate Negative (Negative) 01/17/23 16:40 Urine Bilirubin Neg (Negative) 01/17/23 16:40 Urine Urobilinogen Neg mg/dL (Negative) 01/17/23 16:40 Ur Leukocyte Esterase Negative (Negative) 01/17/23 16:40 Urine RBC Rare /hpf (0-2) 01/17/23 16:40 Urine WBC None /hpf (0-5) 01/17/23 16:40 Ur Squamous Epith Cells None /hpf (0-5) 01/17/23 16:40 Amorphous Sediment Not Reportable 01/17/23 16:40 Urine Bacteria None /hpf (NONE) 01/17/23 16:40 Salicylates 2.3 mg/dL (3-10) L 01/17/23 14:56 Urine Opiates Screen Negative ng/mL (Negative) 01/17/23 16:40 Acetaminophen < 5.0 ug/mL (10-30) L 01/17/23 14:56 Ur Barbiturates Screen Negative ng/mL (Negative) 01/17/23 16:40 Ur Phencyclidine Scrn Negative ng/mL (Negative) 01/17/23 16:40 Ur Amphetamines Screen Negative ng/mL (Negative) 01/17/23 16:40 U Benzodiazepines Scrn Positive ng/mL (Negative) H 01/17/23 16:40 Urine Cocaine Screen Negative ng/mL (Negative) 01/17/23 16:40 U Marijuana (THC) Screen Negative ng/mL (Negative) 01/17/23 16:40 Ethyl Alcohol < 10 mg/dL (0-10) 01/17/23 14:56 SARS-CoV-2 Ag (Rapid) negative (Negative) 01/17/23 15:30 Discharge Plan Discharge Patient Disposition: Xfer Short-Term Hosp Clinical Impression: Suicidal ideation Condition: Stable Referrals: Reuben Mcacin DO [Primary Care Provider] - Coding Level of Care Code ED System Support Developer for Bandar Hicks
--- NOTE | 2023-01-17 14:37 | ECG_ITS ---
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 Measurements Intervals [place] Rate: 70 P: 60 ND: 145 QRS: 68 QRSD: 97 T: 65 QT: 418 QTc: 453 Interpretive Statements SINUS RHYTHM Compared to ECG 12/28/2022 11:57:46 Sinus arrhythmia no longer present T-wave abnormality no longer present Electronically Signed On 01-17-2023 18:18:59 MILITARY PILOT by Rodríguez Sutton M.D. [email or web address] [email or web address] Media Groupselect medical specialty hospital - [facility] northRange [id number]
[2023-01-17 15:08] LABS: Basophils # 0.1 10^3/uL (0.0-0.1); Eosinophils # 0.5 10^3/uL (0.0-0.8); Hematocrit 42.4 % (37.0-47.0); Lymphocytes # 2.9 10^3/uL (0.8-4.8); Lymphocytes % 35.9 %; Mean Corpuscular Hemoglobin 30.2 pg (28.0-34.0); Mean Corpuscular Volume 91.4 fl (81-99); Mean Platelet Volume 10.4 fL (7.4-10.4); Monocytes # 0.4 10^3/uL (0.2-0.9); Monocytes % 4.7 %; Neutrophils # 4.23 10^3/uL (1.8-7.7); Neutrophils % 52.3 %; Nucleated Red Blood Cells % 0 %; Platelet Count 303 10^3/cmm (130-400); Red Blood Count 4.64 10^6/uL (4.1-5.3); Red Cell Distribution Width 12.7 % (12.1-15.1); White Blood Count 8.1 10^3/uL (4.0-10.0)
[2023-01-17 15:43] LABS: Alanine Aminotransferase 9 U/L (0-33); Albumin Level 4.3 g/dL (3.5-5.2); Alkaline Phosphatase 47 U/L (35-105); Aspartate Amino Transferase 13 U/L (0-32); Blood Urea Nitrogen 9 mg/dL (6-20); Calcium 9.1 mg/dL (8.5-10.5); Carbon Dioxide 24 mmol/L (22-29); Chloride 104 mmol/L (98-107); Creatinine Clr Calc Pharmacy 87.2355; Globulin 2.4 g/dL (1.3-4.6); Glomerular Filtration Rate 81.2 mL/min (90-130); Glucose 111 mg/dL (65-115); Osmolality Calculated 285 mOsm/kg (285-295); Salicylate 2.3 mg/dL (3-10); Sodium 138 mmol/L (136-145); Thyroid Stimulating Hormone 0.89 uIU/mL (0.27-4.20); Total Bilirubin 0.5 mg/dL (0.15-1.2); Total Protein 6.7 g/dL (6.6-8.7)
[2023-01-17] MEDS: nicotine 21 mg Patch 1 PATCH TRANSDERMA (15:49)
[2023-01-17 15:52] LABS: Acetaminophen < 5.0 ug/mL (10-30); Alcohol Level < 10 mg/dL (0-10)
[2023-01-17 15:55] VITALS: O2SAT 98
[2023-01-17 16:02] LABS: SARS Covid-2 Antigen negative (Negative)
[2023-01-17 17:01] LABS: HCG Qualitative Urine. Negative (Negative)
[2023-01-17 17:39] LABS: Add Urine Microscopic? YES; Bilirubin Urine Neg (Negative); Blood Urine Trace (Negative); Glucose Urine UA Norm (Normal); Ketones Urine Negative (Negative); Leukocyte Esterase Urine Negative (Negative); Nitrate Urine Negative (Negative); Protein Urine Neg (Negative); Urine Appearance Clear (CLEAR); Urine Color Yellow (Yellow); Urobilinogen Urine Neg (Negative); pH Urine 7 (5-7)
[2023-01-17 17:40] LABS: Add Urine Culture? No; RBC Urine RARE /hpf (0-2)
[2023-01-17 17:43] LABS: Amphetamines Screen Urine Negative (Negative); Barbiturates Screen Urine Negative (Negative); Benzodiazepines Screen Urine Positive (Negative); Cocaine Screen Urine Negative (Negative); Opiate Screen Urine Negative (Negative); PCP Screen Urine Negative (Negative); THC Screen Urine Negative (Negative)
[2023-01-17 19:00] VITALS: O2SAT 98
[2023-01-17] MEDS: ondansetron 2 mg/ML SDV 2 mL 4 MG IM (19:54)
[2023-01-17 20:00] VITALS: RESP 16
[2023-01-17 22:00] VITALS: RESP 18
[2023-01-17 23:01] VITALS: RESP 14; O2SAT 97
[2023-01-18 03:09] VITALS: BP 98/50; PULSE 60; RESP 14; O2SAT 97
--- NOTE | 2023-01-18 03:43 | PC.NURSE ---
[facility] excepted patient for their NPU. Report to Blaire Souza RN prior to facility transfer.
[2023-01-18] MEDS: bacitracin ointment Pkt 1 EACH TOPICAL (04:40)
[2023-01-18] MEDS: nicotine 21 mg Patch 1 PATCH TRANSDERMA (08:05)
--- NOTE | 2023-01-18 10:55 | DCPLANNER ---
Grain Mill Worker was asked to look for psych placement for patient. Grain Mill Worker called and faxed patients information to the following facilities: [facility] - 2105 - [facility] - paperwork faxed at [phone] [facility] - 2119 - [facility] - paperwork faxed at [phone] - facility accepted patient [facility] - 2132 - [facility] - no beds Harjinder Ness - patient to girish
== END 2023-01-18 08:06 | disposition short-term general hospital (02) ==
PROVIDERS: Emergency Medicine; Emergency Provider Emergency Medicine; PCP Family Medicine
DX: R45.851 Suicidal ideations (principal); Z20.822 Contact with and (suspected) exposure to COVID-19; F17.210 Nicotine dependence, cigarettes, uncomplicated
CPT/HCPCS: 36415; 80053; 80306; 80307; 81001; 81025; 84443; 85025; 87426; 93005; 96372; 99284; J2405

== ENCOUNTER 2023-01-24 17:57 | Inpatient (IN) | payer BC, SELFPAY ==
[2023-01-24 18:04] VITALS: BP 119/73; PULSE 75; RESP 16; TEMP 36.4; O2SAT 99; BMI 23.7
--- NOTE | 2023-01-24 18:32 | ED.C_ITS ---
HPI - Psych General: Chief Complaint: Psychiatric Symptoms Stated Complaint: SI, hearing voices Time Seen by Provider: 01/24/23 18:32 History of Present Illness: Ms. Saenz is a 37-year-old lady with history of depression and substance abuse presenting to the emergency department for suicidal ideation and hearing voices. She reports compliance with her medication regimen and some improvement after previous hospitalization though has had difficulty with sleep. Starting today she has had increased suicidal thoughts without plan as well as voices that are very distracting to her. Density symptoms is moderate to severe. She denies substance abuse. She has had similar episodes in the past. She endorses generalized pain but no specific changes in health. No other specific changes in health, exacerbating, or alleviating factors identified. Onset (ago): hour(s) Duration: constant History of same: Yes Relieving factors: none Exacerbating factors: none Associated psychiatric symptoms: depression, suicidal ideation and auditory hallucinations Review of Systems General: Reports: 10 or more systems reviewed and unremarkable except in HPI and below PFSH ED PFSH: Medical History Major depressive disorder, recurrent, severe with psychotic symptoms Methamphetamine abuse, episodic Methamphetamine use Psychiatric care Family History Daughter Diabetes Mother Hypertension Grandfather No problems noted. Grandmother Breast cancer 70's Denies family history of Colon cancer Ovarian cancer Clotting disorder Heart disease Hyperlipidemia Anesthesia complication Bleeding disorder Uterine cancer Thyroid condition Stroke Social History Smoking and tobacco status: current every day smoker cigarettes Packs smoked per day: 0.5 Alcohol intake: never Current gender identity: Female Physical Exam Const: COMMON NORMALS: alert GENERAL APPEARANCE: cooperative and well developed HENMT: COMMON NORMALS: normocephalic and atraumatic HEAD & SCALP: normocephalic and atraumatic Eye: COMMON NORMALS: conjunctivae normal CONJUNCTIVA: Yes conjunctivae normal SCLERA: sclerae normal Neck/C-Spine: COMMON NORMALS: supple GENERAL: Yes trachea midline Resp: COMMON NORMALS: clear to auscultation bilaterally EFFORT & INSPECTION: Yes able to speak in complete sentences AUSCULTATION: clear to auscultation bilaterally Cardio: COMMON NORMALS: regular rate and regular rhythm RATE: regular rate RHYTHM: regular rhythm GI: COMMON NORMALS: Soft to palpation PALPATION: Yes Soft to palpation and No Tenderness to palpation present (GI) PERCUSSION: normal to percussion Extremity: GENERAL: Yes normal exam except as noted and No edema Neuro: COMMON NORMALS: moves all extremities SENSORIUM/ORIENTATION: Yes alert and No Orientation impaired Psych: COMMON NORMALS: mental status grossly normal and Normal thought process present THOUGHT PROCESS: Normal thought process present Course Vital Signs: Vital signs: Vital Signs Temperature 97.5 F L 01/24/23 18:04 Pulse Rate 63 01/24/23 22:00 Respiratory Rate 18 01/24/23 22:00 Blood Pressure 80/54 01/24/23 22:00 Pulse Oximetry 98 01/24/23 22:00 Oxygen Delivery Me thod 01/24/23 18:04 MDM - Psych Medical Decision Making 37-year-old lady with psychiatric history and substance abuse presenting to the emergency department for suicidal ideation and auditory hallucination x1 day. Patient reports compliance with medication regimen however has had worsening symptoms without known specific provoking factor. She endorses inability to sleep. She is calm and cooperative though somewhat anxious and at times does appear to be having auditory hallucinations. She is nontoxic in appearance Hematologic and metabolic panel essentially unremarkable. Toxic ingestions are negative. Urine drug screen negative. Patient denies recent substance abuse. Based on ED evaluation and clinical history provided there is no indication for imaging studies at this time. Given suicidal ideation and auditory hallucinations despite appropriate outpatient management patient requires inpatient management for psychiatric assessment and stabilization Based on ED evaluation at this point there is no obvious condition that would preclude the patient from inpatient management psychiatric concerns/symptoms. The results of ED evaluation were discussed with the patient including plan for admission due to requirement for level of care not available if discharged to prevent significant worsening/deterioration. Patient agreeable with plan. Discussed with psychiatry service who was agreeable to admit patient. Medical Records I reviewed the patient's medical records. Lab Data I reviewed the patient's lab results. 01/24/23 18:53 01/24/23 18:53 Laboratory Results WBC 10.2 10^3/uL (4.0-10.0) H 01/24/23 18:53 RBC 4.52 10^6/uL (4.1-5.3) 01/24/23 18:53 Hgb 13.7 g/dL (11.5-15.3) 01/24/23 18:53 Hct 40.8 % (37.0-47.0) 01/24/23 18:53 MCV 90.3 fl (81-99) 01/24/23 18:53 MCH 30.3 pg (28.0-34.0) 01/24/23 18:53 MCHC 33.6 g/dL (30.0-36.0) 01/24/23 18:53 RDW 12.6 % (12.1-15.1) 01/24/23 18:53 Plt Count 288 10^3/cmm (130-400) 01/24/23 18:53 MPV 10.4 fL (7.4-10.4) 01/24/23 18:53 Neut % (Auto) 52.6 % 01/24/23 18:53 Lymph % (Auto) 37.6 % 01/24/23 18:53 Hand % (Auto) 5.4 % 01/24/23 18:53 Eos % (Auto) 3.6 % 01/24/23 18:53 Baso % (Auto) 0.7 % 01/24/23 18:53 Neut # (Auto) 5.37 10^3/uL (1.8-7.7) 01/24/23 18:53 Lymph # (Auto) 3.8 10^3/uL (0.8-4.8) 01/24/23 18:53 Hand # (Auto) 0.6 10^3/uL (0.2-0.9) 01/24/23 18:53 Eos # (Auto) 0.4 10^3/uL (0.0-0.8) 01/24/23 18:53 Baso # (Auto) 0.1 10^3/uL (0.0-0.1) 01/24/23 18:53 Nucleated RBC % (auto) 0 % 01/24/23 18:53 Nucleated RBCs # 0.0 /100WBC 01/24/23 18:53 Sodium 138 mmol/L (136-145) 01/24/23 18:53 Potassium 3.5 mmol/L (3.5-5.1) 01/24/23 18:53 Chloride 103 mmol/L (98-107) 01/24/23 18:53 Carbon Dioxide 24 mmol/L (22-29) 01/24/23 18:53 Anion Gap 14.5 (5-19) 01/24/23 18:53 BUN 15 mg/dL (6-20) 01/24/23 18:53 Creatinine 0.8 mg/dL (0.5-0.9) 01/24/23 18:53 GFR Calculation 81.2 mL/min (90-130) L 01/24/23 18:53 Glucose 88 mg/dL (65-115) 01/24/23 18:53 Calculated Osmolality 286 mOsm/kg (285-295) 01/24/23 18:53 Calcium 9.2 mg/dL (8.5-10.5) 01/24/23 18:53 Total Bilirubin 0.3 mg/dL (0.15-1.2) 01/24/23 18:53 AST 13 U/L (0-32) 01/24/23 18:53 ALT 16 U/L (0-33) 01/24/23 18:53 Alkaline Phosphatase 45 U/L (35-105) 01/24/23 18:53 Total Protein 6.4 g/dL (6.6-8.7) L 01/24/23 18:53 Albumin 4.1 g/dL (3.5-5.2) 01/24/23 18:53 Globulin 2.3 g/dL (1.3-4.6) 01/24/23 18:53 TSH 1.81 uIU/mL (0.27-4.20) 01/24/23 18:53 HCG, Qual Negative (Negative) 01/24/23 20:03 Salicylates < 0.3 mg/dL (3-10) L 01/24/23 18:53 Urine Opiates Screen Negative ng/mL (Negative) 01/24/23 20:03 Acetaminophen < 5.0 ug/mL (10-30) L 01/24/23 18:53 Ur Barbiturates Screen Negative ng/mL (Negative) 01/24/23 20:03 Ur Phencyclidine Scrn Negative ng/mL (Negative) 01/24/23 20:03 Ur Amphetamines Screen Negative ng/mL (Negative) 01/24/23 20:03 U Benzodiazepines Scrn Negative ng/mL (Negative) 01/24/23 20:03 Urine Cocaine Screen Negative ng/mL (Negative) 01/24/23 20:03 U Marijuana (THC) Screen Negative ng/mL (Negative) 01/24/23 20:03 Ethyl Alcohol < 10 mg/dL (0-10) 01/24/23 18:53 Discharge Plan Discharge Patient Disposition: Admitted As Inpatient Admit Provider: Carlos Layton Clinical Impression: Suicidal ideation, Auditory hallucinations Condition: Stable Coding Level of Care Code ED Project Development Manager for Bandar Hicks
[2023-01-24 19:04] LABS: Basophils # 0.1 10^3/uL (0.0-0.1); Basophils % 0.7 %; Eosinophils # 0.4 10^3/uL (0.0-0.8); Eosinophils % 3.6 %; Hematocrit 40.8 % (37.0-47.0); Hemoglobin 13.7 g/dL (11.5-15.3); Lymphocytes # 3.8 10^3/uL (0.8-4.8); Lymphocytes % 37.6 %; Mean Corpuscular HGB Conc 33.6 g/dL (30.0-36.0); Mean Corpuscular Hemoglobin 30.3 pg (28.0-34.0); Mean Corpuscular Volume 90.3 fl (81-99); Mean Platelet Volume 10.4 fL (7.4-10.4); Monocytes # 0.6 10^3/uL (0.2-0.9); Monocytes % 5.4 %; Neutrophils # 5.37 10^3/uL (1.8-7.7); Neutrophils % 52.6 %; Nucleated Red Blood Cells % 0 %; Platelet Count 288 10^3/cmm (130-400); Red Blood Count 4.52 10^6/uL (4.1-5.3); Red Cell Distribution Width 12.6 % (12.1-15.1); White Blood Count 10.2 10^3/uL (4.0-10.0)
[2023-01-24 19:32] LABS: Alanine Aminotransferase 16 U/L (0-33); Albumin Level 4.1 g/dL (3.5-5.2); Alkaline Phosphatase 45 U/L (35-105); Anion Gap 14.5 (5-19); Aspartate Amino Transferase 13 U/L (0-32); Blood Urea Nitrogen 15 mg/dL (6-20); Calcium 9.2 mg/dL (8.5-10.5); Carbon Dioxide 24 mmol/L (22-29); Chloride 103 mmol/L (98-107); Globulin 2.3 g/dL (1.3-4.6); Glomerular Filtration Rate 81.2 mL/min (90-130); Glucose 88 mg/dL (65-115); Osmolality Calculated 286 mOsm/kg (285-295); Potassium 3.5 mmol/L (3.5-5.1); Sodium 138 mmol/L (136-145); Thyroid Stimulating Hormone 1.81 uIU/mL (0.27-4.20); Total Bilirubin 0.3 mg/dL (0.15-1.2); Total Protein 6.4 g/dL (6.6-8.7)
[2023-01-24 19:37] LABS: Acetaminophen < 5.0 ug/mL (10-30); Alcohol Level < 10 mg/dL (0-10); Salicylate < 0.3 mg/dL (3-10)
[2023-01-24 20:16] LABS: HCG Qualitative Urine. Negative (Negative)
[2023-01-24 20:19] LABS: Amphetamines Screen Urine Negative (Negative); Barbiturates Screen Urine Negative (Negative); Benzodiazepines Screen Urine Negative (Negative); Cocaine Screen Urine Negative (Negative); Opiate Screen Urine Negative (Negative); PCP Screen Urine Negative (Negative); THC Screen Urine Negative (Negative)
--- NOTE | 2023-01-24 20:25 | PC.NURSE ---
pt resting comfortably in room with eyes closed. no needs apparent at this time.
[2023-01-24 22:00] VITALS: BP 80/54; PULSE 63; RESP 18; O2SAT 98
[2023-01-24] MEDS: ondansetron 4 MG Tablet PO (22:00)
[2023-01-24] MEDS: trazodone 50 mg Tablet PO (22:05)
--- NOTE | 2023-01-24 22:05 | PC.NURSE ---
prn zofran given for nausea per pt request.
[2023-01-25 06:00] VITALS: BP 98/60; PULSE 67; RESP 16; TEMP 36.7; O2SAT 95
[2023-01-25] MEDS: OLANZapine 5 mg ODT PO (06:48)
[2023-01-25] MEDS: nicotine 4 mg lozenge MUCOUS MEM ×5 (06:49→17:49)
[2023-01-25] MEDS: ondansetron 4 MG Tablet PO (09:16)
--- NOTE | 2023-01-25 11:34 | PC.NURSE ---
Addendum entered by Thaddeus Laughlin RN 01/25/23 11:41: PT WITH NO OTHER COMPLAINTS OF STOMACH PROBLEMS, WILL CONTINUE TO MONITOR. Original Note: PRN MED PT GIVEN 4MG ZOFRAN FOR UPSET STOMACH, WILL CONTINUE TO MONITOR.
[2023-01-25] MEDS: hyDROXYzine 25 mg Capsule 50 MG PO (12:55)
--- NOTE | 2023-01-25 13:03 | PC.NURSE ---
PRN MED PT GIVEN 50MG VISTARIL FOR STATED ANXIETY, WILL CONTINUE TO MONITOR.
[2023-01-25 14:00] VITALS: BP 107/68; PULSE 63; RESP 16; TEMP 36.5; O2SAT 99
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
[2023-01-25] MEDS: trazodone 50 mg Tablet PO (20:11)
[2023-01-25] MEDS: paliperidone ER 3 mg Tablet PO (20:11)
--- NOTE | 2023-01-25 20:15 | PC.NURSE ---
prn trazodone given as ordered per pt request.
[2023-01-25 21:57] VITALS: BP 105/73; PULSE 66; RESP 15; TEMP 36.4; O2SAT 94
[2023-01-26 06:00] VITALS: BP 95/62; PULSE 95; RESP 18; TEMP 36.6; O2SAT 93
[2023-01-26] MEDS: hyDROXYzine 25 mg Capsule 50 MG PO (07:54)
[2023-01-26] MEDS: nicotine 4 mg lozenge MUCOUS MEM ×5 (09:10→20:35)
--- NOTE | 2023-01-26 09:24 | PC.NURSE ---
Pt came to nurses station saying she was feeling a little lightheaded. Pt had received Vistaril earlier and recently requested a nicotine lozenge which is twice the dose of the gum. Discussed nicotine lozenge may be too strong for her. Vital signs were within normal limits. Pt encouraged to lay down. Preferred to sit on bench across from station.
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
[2023-01-26 14:00] VITALS: BP 108/64; PULSE 75; RESP 18; TEMP 36.3; O2SAT 96
[2023-01-26] MEDS: PARoxetine 20 mg Tablet 10 MG PO (20:34)
[2023-01-26] MEDS: paliperidone ER 3 mg Tablet PO (20:35)
[2023-01-26] MEDS: trazodone 50 mg Tablet PO (20:35)
--- NOTE | 2023-01-26 20:35 | PC.NURSE ---
PRN trazodone given as ordered for sleep per pt request.
[2023-01-26 22:00] VITALS: RESP 15
--- NOTE | 2023-01-26 22:40 | PC.NURSE ---
pt resting comfortably in bed w/eyes closed. no distress noted.
[2023-01-27 06:00] VITALS: BP 107/71; PULSE 110; RESP 18; TEMP 37; O2SAT 97
[2023-01-27] MEDS: acetaminophen 325 mg Tablet 650 MG PO (06:27)
[2023-01-27] MEDS: ondansetron 4 MG Tablet PO (06:27)
[2023-01-27] MEDS: nicotine 4 mg lozenge MUCOUS MEM ×3 (08:52→13:11)
[2023-01-27] MEDS: hyDROXYzine 25 mg Capsule 50 MG PO (09:05)
[2023-01-27 14:00] VITALS: BP 131/86; PULSE 69; RESP 18; TEMP 36.4; O2SAT 98
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
[2023-01-27 14:38] VITALS: BP 131/86; PULSE 69; RESP 18; TEMP 36.4; O2SAT 98
--- NOTE | 2023-01-28 09:54 | PC.NURSE ---
Addendum entered by Allison Everett LPN 01/28/23 09:55: pt notified of prescription being called in and where to pick it up. Original Note: pt called requesting medication for sleep. trazodone 100mg po 1 tab q bedtime called into [facility] pharmacy for pickup. per dr. hernandez verbal orders.
== END 2023-01-27 16:20 | disposition home or self-care (01) | DRG 885 ==
LOC: ER 20:31 → NP 20:34
PROVIDERS: Admitting Provider Psychiatry & Neurology Psychiatry; Emergency Provider Emergency Medicine; PCP Family Medicine; Visit Provider Psychiatry & Neurology Psychiatry
DX: F33.3 Major depressive disorder, recurrent, severe with psychotic symptoms (principal); F23 Brief psychotic disorder; R45.851 Suicidal ideations; F15.10 Other stimulant abuse, uncomplicated; F41.9 Anxiety disorder, unspecified; F17.210 Nicotine dependence, cigarettes, uncomplicated; Z91.49 Other personal history of psychological trauma, not elsewhere classified
CPT/HCPCS: 36415; 80053; 80306; 80307; 81025; 84443; 85025; 97150; 97165; 99238; 99285; Q0162

== ENCOUNTER → 2023-03-27 15:51 | Outpatient (BNVA) | payer BC, SELFPAY | PROVIDERS: PCP Family Medicine; Visit Provider Nurse Practitioner Psychiatric/Mental Health | DX: Z79.899 Other long term (current) drug therapy (principal) | CPT/HCPCS: 81025 ==

== ENCOUNTER 2023-05-29 14:05 | Emergency (ER) | payer BC, MEDICAID, SELFPAY ==
[2023-05-29 14:10] VITALS: BP 107/87; PULSE 83; RESP 18; TEMP 36.6; O2SAT 96; BMI 24.7
--- NOTE | 2023-05-29 14:49 | W.ED.SEIZURE ---
HPI - Seizure General: Chief Complaint: Seizure Stated Complaint: dizzy, restlessness Time Seen by Provider: 05/29/23 14:28 Source: patient Mode of arrival: ambulatory History of Present Illness: HPI Narrative: 37-year-old female presents to the emergency room stating she feels like she is about to have a seizure. Patient states she has not had a seizure at this point she has erratic behavior in the emergency room. Standing up on the exam cot at 1 point. She has presented to the emergency room in this fashion in the past and ultimately left AMA. At the time she is seen she denies any chest pain or abdominal pain no fever sweats chills dysuria urgency or frequency. She appears to be under the influence of a stimulant at this time. MD complaint: feels seizure coming on Seizure History: Yes (pt states she hasn't had one in years) Associated symptoms: Reports diaphoresis and malaise; Deny chest pain, chills, confusion, cough, fever(s), anorexia, rash, short of breath, syncope, weakness or other Treatments prior to arrival: none Review of Systems Const: Reports: malaise and diaphoresis; Denies: fever(s) or chills ENMT: Denies: throat pain, ear or mastoid pain or nasal congestion Card: Denies: chest pain or syncope Resp: Denies: dyspnea, productive cough or non-productive cough GI: Denies: abdominal pain, nausea or vomiting : Denies: flank pain, difficulty voiding, dysuria, urinary frequency or urinary urgency Skin/Breast: Denies: rash or pruritus Neuro: Denies: confusion PFSH ED PFSH: Medical History Major depressive disorder, recurrent, severe with psychotic symptoms Methamphetamine abuse, episodic Methamphetamine use Psychiatric care Family History Daughter Diabetes Mother Hypertension Grandfather No problems noted. Grandmother Breast cancer 70's Denies family history of Colon cancer Ovarian cancer Clotting disorder Heart disease Hyperlipidemia Anesthesia complication Bleeding disorder Uterine cancer Thyroid condition Stroke Social History Smoking and tobacco status: current every day smoker cigarettes Packs smoked per day: 0.5 Alcohol intake: never Substance/Drug Use: never Current gender identity: Female Physical Exam HENMT: COMMON NORMALS: normocephalic, atraumatic and hearing grossly normal bilaterally HEAD & SCALP: normocephalic and atraumatic Resp: COMMON NORMALS: normal respiratory effort, No retractions, No use of accessory muscles and clear to auscultation bilaterally AUSCULTATION: clear to auscultation bilaterally Cardio: COMMON NORMALS: regular rate, regular rhythm and No murmurs present (Cardio) RATE: regular rate RHYTHM: regular rhythm GI: COMMON NORMALS: Soft to palpation and No hepatosplenomegaly present AUSCULTATION: Yes normoactive bowel sounds PALPATION: Yes Soft to palpation, No Tenderness to palpation present (GI), No Guarding due to palpation present (GI) and Yes No hepatosplenomegaly present Extremity: COMMON NORMALS: normal to inspection, capillary refill normal, no clubbing, cyanosis or edema, no calf tenderness and no pedal edema Skin: COMMON NORMALS: no rashes or lesions noted GENERAL SKIN EXAM: no rashes or lesions noted Course Vital Signs: Vital signs: Vital Signs Temperature 97.9 F 05/29/23 14:10 Pulse Rate 83 05/29/23 14:10 Respiratory Rate 21 H 05/29/23 15:15 Blood Pressure 120/90 05/29/23 15:15 Pulse Oximetry 98 05/29/23 15:15 Oxygen Delivery Me thod Room Air 05/29/23 14:10 MDM - Seizure MDM Narrative Medical decision making narrative: Patient appears under the influence of a stimulant on the time of arrival she has very erratic behavior and movements including standing on the bed at 1 time the sitter was placed on the patient. Urine drug screen positive for methamphetamines. The sitter was withdrawn after the IV had been removed. Shortly after the significant other and another friend came to visit her in the emergency room patient left AMA. Lab Data 05/29/23 14:05 05/29/23 14:05 Labs: Laboratory Results WBC 8.8 10^3/uL (4.0-10.0) 05/29/23 14:05 RBC 5.19 10^6/uL (4.1-5.3) 05/29/23 14:05 Hgb 15.6 g/dL (11.5-15.3) H 05/29/23 14:05 Hct 45.5 % (37.0-47.0) 05/29/23 14:05 MCV 87.7 fl (81-99) 05/29/23 14:05 MCH 30.1 pg (28.0-34.0) 05/29/23 14:05 MCHC 34.3 g/dL (30.0-36.0) 05/29/23 14:05 RDW 12.1 % (12.1-15.1) 05/29/23 14:05 Plt Count 446 10^3/cmm (130-400) H 05/29/23 14:05 MPV 10.5 fL (7.4-10.4) H 05/29/23 14:05 Neut % (Auto) 48.8 % 05/29/23 14:05 Lymph % (Auto) 38.0 % 05/29/23 14:05 [place] % (Auto) 7.2 % 05/29/23 14:05 Eos % (Auto) 4.8 % 05/29/23 14:05 Baso % (Auto) 0.9 % 05/29/23 14:05 Neut # (Auto) 4.30 10^3/uL (1.8-7.7) 05/29/23 14:05 Lymph # (Auto) 3.3 10^3/uL (0.8-4.8) 05/29/23 14:05 [place] # (Auto) 0.6 10^3/uL (0.2-0.9) 05/29/23 14:05 Eos # (Auto) 0.4 10^3/uL (0.0-0.8) 05/29/23 14:05 Baso # (Auto) 0.1 10^3/uL (0.0-0.1) 05/29/23 14:05 Nucleated RBC % (auto) 0 % 05/29/23 14:05 Nucleated RBCs # 0.0 /100WBC 05/29/23 14:05 Sodium 136 mmol/L (136-145) 05/29/23 14:05 Potassium 3.8 mmol/L (3.5-5.1) 05/29/23 14:05 Chloride 100 mmol/L (98-107) 05/29/23 14:05 Carbon Dioxide 23 mmol/L (22-29) 05/29/23 14:05 Anion Gap 16.8 (5-19) 05/29/23 14:05 BUN 9 mg/dL (6-20) 05/29/23 14:05 Creatinine 0.9 mg/dL (0.5-0.9) 05/29/23 14:05 GFR Calculation 70.8 mL/min (90-130) L 05/29/23 14:05 Glucose 110 mg/dL (65-115) 05/29/23 14:05 Calculated Osmolality 281 mOsm/kg (285-295) L 05/29/23 14:05 Calcium 10.0 mg/dL (8.5-10.5) 05/29/23 14:05 Total Bilirubin 0.7 mg/dL (0.15-1.2) 05/29/23 14:05 AST 24 U/L (0-32) 05/29/23 14:05 ALT 25 U/L (0-33) 05/29/23 14:05 Alkaline Phosphatase 59 U/L (35-105) 05/29/23 14:05 Creatine Kinase 389 U/L (26-192) H* 05/29/23 14:05 Total Protein 7.3 g/dL (6.6-8.7) 05/29/23 14:05 Albumin 4.3 g/dL (3.5-5.2) 05/29/23 14:05 Globulin 3.0 g/dL (1.3-4.6) 05/29/23 14:05 HCG, Qual Negative (Negative) 05/29/23 14:05 Urine Color Yellow (Yellow) 05/29/23 15:55 Urine Appearance Clear (CLEAR) 05/29/23 15:55 Urine pH 5 (5-7) 05/29/23 15:55 Ur Specific [place] 1.015 (1.005-1.030) 05/29/23 15:55 Urine Protein Neg (Negative) 05/29/23 15:55 Urine Glucose (UA) Norm (Normal) 05/29/23 15:55 Urine Ketones Negative (Negative) 05/29/23 15:55 Urine Blood 2+ (Negative) H 05/29/23 15:55 Urine Nitrate Negative (Negative) 05/29/23 15:55 Urine Bilirubin Neg (Negative) 05/29/23 15:55 Urine Urobilinogen Norm mg/dL (Negative) 05/29/23 15:55 Ur Leukocyte Esterase Negative (Negative) 05/29/23 15:55 Urine RBC 0-4 /hpf (0-2) H 05/29/23 15:55 Urine WBC 0-4 /hpf (0-5) H 05/29/23 15:55 Ur Squamous Epith Cells 10-15 /hpf (0-5) H 05/29/23 15:55 Amorphous Sediment Not Reportable 05/29/23 15:55 Urine Bacteria 1+ /hpf (NONE) H 05/29/23 15:55 Salicylates < 0.3 mg/dL (3-10) L 05/29/23 14:05 Urine Opiates Screen Negative ng/mL (Negative) 05/29/23 15:55 Acetaminophen < 5.0 ug/mL (10-30) L 05/29/23 14:05 Ur Barbiturates Screen Negative ng/mL (Negative) 05/29/23 15:55 Ur Phencyclidine Scrn Negative ng/mL (Negative) 05/29/23 15:55 Ur Amphetamines Screen Positive ng/mL (Negative) H 05/29/23 15:55 U Benzodiazepines Scrn Negative ng/mL (Negative) 05/29/23 15:55 Urine Cocaine Screen Negative ng/mL (Negative) 05/29/23 15:55 U Marijuana (THC) Screen Negative ng/mL (Negative) 05/29/23 15:55 Ethyl Alcohol < 10 mg/dL (0-10) 05/29/23 14:05 Discharge Plan Discharge Patient Disposition: Left Against Medical Advice Clinical Impression: Methamphetamine abuse, episodic Condition: Stable Prescriptions: No Action olanzapine 5 mg tablet 5 mg PO .q am Qty: 30 1RF Rx Instructions: Take one tablet by mouth every morning olanzapine 10 mg tablet 10 mg PO .q hs Qty: 30 1RF Rx Instructions: Take one tablet daily at bedtime buspirone 10 mg tablet 10 mg PO TID Qty: 90 1RF Rx Instructions: Take one tablet by mouth every morning, afternoon, and at bedtime escitalopram oxalate 10 mg tablet 10 mg PO .q am Qty: 30 1RF Rx Instructions: Take one tablet every morning ondansetron HCl 4 mg tablet 4 mg PO Q8H PRN (Reason: nausea and vomiting) Qty: 60 3RF Referrals: Reuben Mccain, [Primary Care Provider] - Coding Level of Care Code ED 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
[2023-05-29 15:09] LABS: Basophils # 0.1 10^3/uL (0.0-0.1); Basophils % 0.9 %; Eosinophils # 0.4 10^3/uL (0.0-0.8); Eosinophils % 4.8 %; Hematocrit 45.5 % (37.0-47.0); Hemoglobin 15.6 g/dL (11.5-15.3); Lymphocytes # 3.3 10^3/uL (0.8-4.8); Mean Corpuscular HGB Conc 34.3 g/dL (30.0-36.0); Mean Corpuscular Hemoglobin 30.1 pg (28.0-34.0); Mean Corpuscular Volume 87.7 fl (81-99); Mean Platelet Volume 10.5 fL (7.4-10.4); Monocytes # 0.6 10^3/uL (0.2-0.9); Monocytes % 7.2 %; Neutrophils % 48.8 %; Nucleated Red Blood Cells % 0 %; Platelet Count 446 10^3/cmm (130-400); Red Blood Count 5.19 10^6/uL (4.1-5.3); Red Cell Distribution Width 12.1 % (12.1-15.1); White Blood Count 8.8 10^3/uL (4.0-10.0)
[2023-05-29 15:15] VITALS: BP 120/90; RESP 21; O2SAT 98
[2023-05-29 15:32] LABS: HCG, Serum Qual Negative (Negative)
[2023-05-29 15:36] LABS: Alanine Aminotransferase 25 U/L (0-33); Albumin Level 4.3 g/dL (3.5-5.2); Alkaline Phosphatase 59 U/L (35-105); Anion Gap 16.8 (5-19); Aspartate Amino Transferase 24 U/L (0-32); Blood Urea Nitrogen 9 mg/dL (6-20); Carbon Dioxide 23 mmol/L (22-29); Chloride 100 mmol/L (98-107); Glomerular Filtration Rate 70.8 mL/min (90-130); Glucose 110 mg/dL (65-115); Osmolality Calculated 281 mOsm/kg (285-295); Potassium 3.8 mmol/L (3.5-5.1); Sodium 136 mmol/L (136-145); Total Bilirubin 0.7 mg/dL (0.15-1.2); Total Protein 7.3 g/dL (6.6-8.7)
[2023-05-29 15:38] LABS: Acetaminophen < 5.0 ug/mL (10-30); Alcohol Level < 10 mg/dL (0-10); Creatine Phosphokinase 389 U/L (26-192); Salicylate < 0.3 mg/dL (3-10)
[2023-05-29 16:21] LABS: Amphetamines Screen Urine Positive (Negative); Barbiturates Screen Urine Negative (Negative); Benzodiazepines Screen Urine Negative (Negative); Cocaine Screen Urine Negative (Negative); Opiate Screen Urine Negative (Negative); PCP Screen Urine Negative (Negative); THC Screen Urine Negative (Negative)
[2023-05-29 16:57] LABS: Add Urine Microscopic? YES; Bilirubin Urine Neg (Negative); Blood Urine 2+ (Negative); Glucose Urine UA Norm (Normal); Ketones Urine Negative (Negative); Leukocyte Esterase Urine Negative (Negative); Nitrate Urine Negative (Negative); Protein Urine Neg (Negative); RBC Urine 0-4 /hpf (0-2); Specific Gravity, Urine 1.015 (1.005-1.030); Urine Appearance Clear (CLEAR); Urine Color Yellow (Yellow); Urobilinogen Urine Norm (Negative); WBC Urine 0-4 /hpf (0-5); pH Urine 5 (5-7)
[2023-05-29 16:58] LABS: Add Urine Culture? No; Bacteria Urine 1+ /hpf
== END 2023-05-29 16:22 | disposition left against medical advice (07) ==
PROVIDERS: Emergency Provider Family Medicine; PCP Family Medicine
DX: F15.10 Other stimulant abuse, uncomplicated (principal); F17.210 Nicotine dependence, cigarettes, uncomplicated
CPT/HCPCS: 80053; 80306; 80307; 81001; 82550; 84703; 85025; 99283

== ENCOUNTER → 2023-10-12 08:54 | Outpatient (BNVA) | payer BC, SELFPAY | PROVIDERS: PCP Family Medicine; Visit Provider Family Medicine | DX: F32.9 Major depressive disorder, single episode, unspecified (principal); F15.10 Other stimulant abuse, uncomplicated; R44.0 Auditory hallucinations | CPT/HCPCS: 80053; 82607; 84443; 85025; 86803; 87806 ==